=== PATIENT | female | born 1960 | race Caucasian/White ===

== ENCOUNTER 2020-11-07 10:35 | Inpatient (IN) | payer OTHER ==
[2020-11-07] MEDS ORDERED: SODIUM CHLORIDE 0.9% 1,000 ML IV STA ×2 (10:58)
[2020-11-07] MEDS ORDERED: ONDANSETRON 4 MG/2 ML VIAL IVP STA (10:59)
[2020-11-07] MEDS ORDERED: IPRATROPIUM-ALBUTEROL 3 ML NEB INHALATION STA (11:00)
[2020-11-07] MEDS ORDERED: methylPREDNISolone SOD SUCCI 125 MG/2 ML VIAL IV STA (11:01)
--- NOTE | 2020-11-07 11:02 | ED ---
SOB HPI - General Chief Complaint: Shortness of Breath Stated Complaint: SAI Time Seen by Provider: 11/07/20 10:40 Source: patient, family, RN notes reviewed Mode of arrival: ambulatory Limitations: no limitations - History of Present Illness Initial Comments: This is a 6-year-old female history of COPD who states she's had shortness of breath or past 2 weeks is getting worse and refractory to her home medications he also is had nausea vomiting. She's had decreased oral intake she is has some fevers chills sweats also she states. Some chest discomfort due to breathing. No diarrhea. She states she did had the COVID-19 shots with the last one being in the end of July. No other current complaints or modifying factors she is currently somewhat nauseated MD Complaint: shortness of breath, cough - Related Data Home Medications Medication Instructions Recorded Confirmed Multivitamins, Thera [Multivitamin 1 tab PO DAILY 11/07/20 11/07/20 (formulary)] Simvastatin [Zocor] 20 mg PO DAILY 11/07/20 11/07/20 Venlafaxine HCl ER [Effexor Xr] 37.5 mg PO HS 11/07/20 11/07/20 clonazePAM [KlonoPIN] 1 mg PO TID PRN 11/07/20 11/07/20 Allergies Allergy/AdvReac Type Severity Reaction Status Date / Time NSAIDS (Non-Steroidal AdvReac Unknown Verified 11/07/20 11:50 Anti-Inflamma Review of Systems ROS Statement: Those systems with pertinent positive or pertinent negative responses have been documented in the HPI. ROS Other: All systems not noted in ROS Statement are negative. Past Medical History Past Medical History: GERD/Reflux, Osteoarthritis (OA) Additional Past Medical History / Comment(s): hiatal hernia, migraines, ulcers,DJD, PT STATED SHE HAS LOST 35 POUNDS WITHOUT TRYING IN THE PAST 6 MONTHS History of Any Multi-Drug Resistant Organisms: None Reported Past Surgical History: Back Surgery, Section, Hysterectomy, Tubal Ligation Additional Past Surgical History / Comment(s): spinal fusion, 07-05-15 TOTAL RT HIP ARTHROPLASTY Past Anesthesia/Blood Transfusion Reactions: Motion Sickness Additional Past Anesthesia/Blood Transfusion Reaction / Comment(s): CLUA STERPHOBIA Past Psychological History: Anxiety Smoking Status: Current every day smoker Past Alcohol Use History: None Reported Past Drug Use History: None Reported - Past Family History Brother(s) Family Medical History: Cancer Mother Family Medical History: CVA/TIA, Deep Vein Thrombosis (DVT), Hypertension, Th yroid Disorder Father Family Medical History: Coronary Artery Disease (CAD), Dementia, Myocardial Infarction ([place]) Additional Family Medical History / Comment(s): CARDIAC STENTS General Exam - General Exam Comments Initial Comments: This is a well-developed asthenic appearing female who is awake alert oriented 3 Limitations: no limitations General appearance: alert, anxious Head exam: Present: atraumatic, normocephalic, normal inspection Eye exam: Present: normal appearance, PERRL, EOMI. Absent: scleral icterus, conjunctival injection, periorbital swelling ENT exam: Present: mucous membranes dry Neck exam: Present: normal inspection, full ROM, other. Absent: tenderness, meningismus, lymphadenopathy Respiratory exam: Present: decreased breath sounds. Absent: respiratory distress, wheezes, rales, rhonchi, stridor Cardiovascular Exam: Present: normal rhythm, tachycardia, normal heart sounds. Absent: systolic murmur, diastolic murmur, rubs, gallop, clicks GI/Abdominal exam: Present: soft, normal bowel sounds. Absent: distended, tenderness, guarding, rebound, rigid Extremities exam: Present: normal inspection, full ROM, normal capillary refill. Absent: tenderness, pedal edema, joint swelling, calf tenderness Back exam: Present: normal inspection Neurological exam: Present: alert, oriented X3, CN II-XII intact Psychiatric exam: Present: normal affect, normal mood Skin exam: Present: warm, dry, intact, normal color. Absent: rash Course Vital Signs 11/07/20 11/07/20 11/07/20 10:37 11:24 11:37 Temperature 98.5 F Pulse Rate 135 H 105 H 110 H Respiratory 16 Rate Blood Pressure 136/89 O2 Sat by Pulse 90 L Oximetry 11/07/20 12:00 Temperature Pulse Rate 104 H Respiratory 18 Rate Blood Pressure 148/78 O2 Sat by Pulse 96 Oximetry Medical Decision Making - Medical Decision Making I did discuss the findings with the patient and her . Patient will be admitted with ulnar consultation. Case is discussed with Dr. Gee covering for Dr. Souza - Lab Data Result diagrams: 11/07/20 11:15 11/07/20 11:15 Lab Results 11/07/20 11/07/20 11/07/20 Range/Units 11:15 11:15 11:15 WBC 19.9 H (3.8-10.6) k/uL RBC 5.09 (3.80-5.40) m/uL Hgb 15.3 (11.4-16.0) gm/dL Hct 46.1 H (34.0-46.0) % MCV 90.6 (80.0-100.0) fL MCH 30.1 (25.0-35.0) pg MCHC 33.2 (31.0-37.0) g/dL RDW 13.0 (11.5-15.5) % Plt Count 431 (150-450) k/uL MPV 7.2 Neutrophils % 91 % Lymphocytes % 5 % Monocytes % 3 % Eosinophils % 0 % Basophils % 0 % Neutrophils # 18.1 H (1.3-7.7) k/uL Lymphocytes # 1.0 (1.0-4.8) k/uL Monocytes # 0.6 (0-1.0) k/uL Eosinophils # 0.1 (0-0.7) k/uL Basophils # 0.0 (0-0.2) k/uL PT 11.6 (9.0-12.0) sec INR 1.1 (<1.2) APTT 23.2 (22.0-30.0) sec D-Dimer 1.69 H (<0.60) mg/L FEU Sodium 133 L (137-145) mmol/L Potassium 3.7 (3.5-5.1) mmol/L Chloride 94 L (98-107) mmol/L Carbon Dioxide 29 (22-30) mmol/L Anion Gap 10 mmol/L BUN 8 (7-17) mg/dL Creatinine 0.35 L (0.52-1.04) mg/dL Est GFR (CKD-EPI)AfAm >90 (>60 ml/min/1.73 sqM) Est GFR (CKD-EPI)NonAf >90 (>60 ml/min/1.73 sqM) Glucose 132 H (74-99) mg/dL Plasma Lactic Acid Leo (0.7-2.0) mmol/L Calcium 9.5 (8.4-10.2) mg/dL Magnesium 2.0 (1.6-2.3) mg/dL Total Bilirubin 0.7 (0.2-1.3) mg/dL AST 43 H (14-36) U/L ALT 58 H (4-34) U/L Alkaline Phosphatase 123 (38-126) U/L Creatine Kinase 54 (30-135) U/L Troponin I (0.000-0.034) ng/mL NT-Pro-B Natriuret Pep pg/mL Total Protein 6.6 (6.3-8.2) g/dL Albumin 3.4 L (3.5-5.0) g/dL Lipase 33 (23-300) U/L Coronavirus (PCR) (Not Detectd) 11/07/20 11/07/20 11/07/20 Range/Units 11:15 11:15 11:15 WBC (3.8-10.6) k/uL RBC (3.80-5.40) m/uL Hgb (11.4-16.0) gm/dL Hct (34.0-46.0) % MCV (80.0-100.0) fL MCH (25.0-35.0) pg MCHC (31.0-37.0) g/dL RDW (11.5-15.5) % Plt Count (150-450) k/uL MPV Neutrophils % % Lymphocytes % % Monocytes % % Eosinophils % % Basophils % % Neutrophils # (1.3-7.7) k/uL Lymphocytes # (1.0-4.8) k/uL Monocytes # (0-1.0) k/uL Eosinophils # (0-0.7) k/uL Basophils # (0-0.2) k/uL PT (9.0-12.0) sec INR (<1.2) APTT (22.0-30.0) sec D-Dimer (<0.60) mg/L FEU Sodium (137-145) mmol/L Potassium (3.5-5.1) mmol/L Chloride (98-107) mmol/L Carbon Dioxide (22-30) mmol/L Anion Gap mmol/L BUN (7-17) mg/dL Creatinine (0.52-1.04) mg/dL Est GFR (CKD-EPI)AfAm (>60 ml/min/1.73 sqM) Est GFR (CKD-EPI)NonAf (>60 ml/min/1.73 sqM) Glucose (74-99) mg/dL Plasma Lactic Acid Leo 1.5 (0.7-2.0) mmol/L Calcium (8.4-10.2) mg/dL Magnesium (1.6-2.3) mg/dL Total Bilirubin (0.2-1.3) mg/dL AST (14-36) U/L ALT (4-34) U/L Alkaline Phosphatase (38-126) U/L Creatine Kinase (30-135) U/L Troponin I <0.012 (0.000-0.034) ng/mL NT-Pro-B Natriuret Pep 76 pg/mL Total Protein (6.3-8.2) g/dL Albumin (3.5-5.0) g/dL Lipase (23-300) U/L Coronavirus (PCR) (Not Detectd) 11/07/20 Range/Units 13:19 WBC (3.8-10.6) k/uL RBC (3.80-5.40) m/uL Hgb (11.4-16.0) gm/dL Hct (34.0-46.0) % MCV (80.0-100.0) fL MCH (25.0-35.0) pg MCHC (31.0-37.0) g/dL RDW (11.5-15.5) % Plt Count (150-450) k/uL MPV Neutrophils % % Lymphocytes % % Monocytes % % Eosinophils % % Basophils % % Neutrophils # (1.3-7.7) k/uL Lymphocytes # (1.0-4.8) k/uL Monocytes # (0-1.0) k/uL Eosinophils # (0-0.7) k/uL Basophils # (0-0.2) k/uL PT (9.0-12.0) sec INR (<1.2) APTT (22.0-30.0) sec D-Dimer (<0.60) mg/L FEU Sodium (137-145) mmol/L Potassium (3.5-5.1) mmol/L Chloride (98-107) mmol/L Carbon Dioxide (22-30) mmol/L Anion Gap mmol/L BUN (7-17) mg/dL Creatinine (0.52-1.04) mg/dL Est GFR (CKD-EPI)AfAm (>60 ml/min/1.73 sqM) Est GFR (CKD-EPI)NonAf (>60 ml/min/1.73 sqM) Glucose (74-99) mg/dL Plasma Lactic Acid Leo (0.7-2.0) mmol/L Calcium (8.4-10.2) mg/dL Magnesium (1.6-2.3) mg/dL Total Bilirubin (0.2-1.3) mg/dL AST (14-36) U/L ALT (4-34) U/L Alkaline Phosphatase (38-126) U/L Creatine Kinase (30-135) U/L Troponin I (0.000-0.034) ng/mL NT-Pro-B Natriuret Pep pg/mL Total Protein (6.3-8.2) g/dL Albumin (3.5-5.0) g/dL Lipase (23-300) U/L Coronavirus (PCR) Not Detected (Not Detectd) - EKG Data -: EKG Interpreted by Me EKG shows normal: sinus rhythm EKG Comments: Sinus tachycardia rate 107. Interval 116 QRS duration 88 QT/QTC 324/432 possible left atrial enlargement evidence a left axis deviation. - Radiology Data Radiology results: report reviewed (Imaging reviewed as well as CAT scan evidence of left upper and lower lobe infiltrate evidence of hilar adenopathy mastectomy ruled out no definitive evidence of PE), image reviewed Critical Care Time Critical Care Time: Yes Total Critical Care Time: 32 Critical Care Time: Critical care time includes initial presentation with history physical labs x- rays multiple reevaluation patient response to therapy discussion with patient family and several occasions regarding the findings discussed with the admitting physician admission orders and documentation of the above Disposition Clinical Impression: Aspiration pneumonia, Acute exacerbation of chronic obstructive pulmonary disease, Acute respiratory distress syndrome in adult Disposition: ADMITTED IP TO THIS HOSP Condition: Fair Referrals: Tr Power MD [Primary Care Provider] - 1-2 days
[2020-11-07 11:27] LABS: Basophils % (A) 0 %; Eosinophils # (A) 0.1 k/uL (0-0.7); Eosinophils % (A) 0 %; HCT 46.1 % (34.0-46.0); HGB 15.3 gm/dL (11.4-16.0); Lymphocytes % (A) 5 %; MCH 30.1 pg (25.0-35.0); MCHC 33.2 g/dL (31.0-37.0); MCV 90.6 fL (80.0-100.0); Mean Platelet Volume 7.2; Monocytes # (A) 0.6 k/uL (0-1.0); Monocytes % (A) 3 %; Neutrophils # (A) 18.1 k/uL (1.3-7.7); Neutrophils % (A) 91 %; Platelet Count 431 k/uL (150-450); RBC 5.09 m/uL (3.80-5.40); WBC 19.9 k/uL (3.8-10.6)
[2020-11-07 11:37] LABS: ALT 58 U/L (4-34); AST 43 U/L (14-36); African American GFR (CKD) >90 (>60 ml/min/1.73 sqM); Albumin 3.4 g/dL (3.5-5.0); Alkaline Phosphatase 123 U/L (38-126); Anion Gap 10 mmol/L; Blood Urea Nitrogen 8 mg/dL (7-17); Calcium 9.5 mg/dL (8.4-10.2); Carbon Dioxide 29 mmol/L (22-30); Chloride 94 mmol/L (98-107); Creatine Kinase 54 U/L (30-135); Glucose 132 mg/dL (74-99); Lipase 33 U/L (23-300); Non-African American GFR(CKD) >90 (>60 ml/min/1.73 sqM); Potassium 3.7 mmol/L (3.5-5.1); Sodium 133 mmol/L (137-145); Total Bilirubin 0.7 mg/dL (0.2-1.3); Total Protein 6.6 g/dL (6.3-8.2)
[2020-11-07 11:44] LABS: INR 1.1 (<1.2); Partial Thromboplastin Time 23.2 sec (22.0-30.0); Prothrombin Time 11.6 sec (9.0-12.0)
[2020-11-07] MEDS ORDERED: cefTRIAXone IN SWFI 1,000 MG/10 ML SYRINGE IVP STA (12:16)
--- NOTE | 2020-11-07 12:42 | XR ---
EXAMINATION TYPE: XR chest 2V DATE OF EXAM: 11/07/2020 COMPARISON: NONE HISTORY: 60 years Female. STUDY INDICATION GIVEN: Difficulty breathing TECHNIQUE: Frontal lateral chest radiographs FINDINGS AND IMPRESSION: Airspace disease demonstrated in the left lower lobe likely on the basis of pneumonia. Bibasilar atel ectasis and mild pulmonary edema also seen. No pneumothorax or pleural effusion. Cardiomediastinal silhouette there is normal in size. No acute osseous abnormality.
--- NOTE | 2020-11-07 13:51 | CT ---
EXAMINATION TYPE: CT angio chest DATE OF EXAM: 11/07/2020 1:09 PM COMPARISON: None HISTORY: Difficulty breathing CT DLP: 236 mGycm Automated exposure control for dose reduction was used. CONTRAST: CTA scan of the thorax is performed without and with IV Contrast, patient injected with 100 ml mL of Isovue 370, pulmonary embolism protocol. . FINDINGS: There is suboptimal opacification of the pulmonary trunk due to bolus timing therefore study is subop timal and it is difficult to exclude segmental or subsegmental pulmonary arterial embolism. No occlusive filling defects are seen in the main, right or left pulmonary arteries. The proximal asp ect of the lobar pulmonary arteries are grossly normal in opacification. Intrathoracic aorta is normal in course and caliber. Extensive multifocal pneumonia is seen in the left upper and lower lobes. There is left hilar and med iastinal adenopathy.There is a soft tissue density subcarinal space measuring 3.6 x 2.5 x 2 cm. There are filling defects in the left mainstem bronchus which contain few foci of air suggesting aspi ration rather than endobronchial tumor. The heart is normal in size and there is no pericardial effusion. 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 Upper abdomen is unremarkable. No acute or concerning osseous abnormality. Mild degenerative changes are seen in the spine. IMPRESSION: 1. FILLING DEFECT IN THE LEFT MAINSTEM BRONCHUS LIKELY ASPIRATED MATERIAL WITH LEFT UPPER AND LEFT LO WER LOBE LIKELY ASPIRATIONAL PNEUMONIA. LEFT HILAR MALIGNANCY/MASS CANNOT BE EXCLUDED. 2. MEDIASTINAL AND LEFT HILAR ADENOPATHY WITH A SOFT TISSUE MASS IN THE PRECARINAL SPACE MEASURING UP TO 3.6 AND, FINDINGS COULD BE REACTIVE SECONDARY TO LUNG INFECTION HOWEVER THIS IS HIGHLY CONCERNING FOR MALIGNANCY. 3. SUBOPTIMAL EVALUATION OF THE PULMONARY ARTERIES, NO OCCLUSIVE FILLING DEFECTS IN THE MAIN, RIGHT O R LEFT PULMONARY ARTERIES, EXCLUSION OF SEGMENTAL OR SUBSEGMENTAL PULMONARY ARTERIAL EMBOLISM IS DIFF ICULT.
[2020-11-07] MEDS ORDERED: ACETAMINOPHEN TAB 500 MG TAB PO STA (14:00)
[2020-11-07] MEDS ORDERED: PIPERACILLIN-TAZOBACTAM 3.375 GM in SODIUM CHLORIDE 0.9% 100 ML IVPB STA (14:07)
[2020-11-07] MEDS ORDERED: PNEUMONIA PROTOCOL UTILIZED 1 EACH MISC PO PRN (14:07)
[2020-11-07] MEDS ORDERED: LEVOFLOXACIN 750MG-D5W PMX 750 MG in DEXTROSE/WATER 1 150ML.BAG IVPB STA (14:07)
[2020-11-07] MEDS: SODIUM CHLORIDE 0.9% 1,000 ML IV SCH (14:44)
[2020-11-07] MEDS: IPRATROPIUM-ALBUTEROL 3 ML NEB INHALATION PRN ×2 (14:51→20:06)
[2020-11-07] MEDS: clonazePAM 1 MG TAB PO PRN ×2 (16:00→23:33)
[2020-11-07 16:51] LABS: Glucose,Whole Blood 360 mg/dL (75-99)
[2020-11-07 17:02] LABS: Glucose,Whole Blood 359 mg/dL (75-99)
[2020-11-07] MEDS: methylPREDNISolone SOD SUCCI 125 MG/2 ML VIAL IV SCH ×2 (17:32→23:34)
[2020-11-07] MEDS: INSULIN ASPART (NovoLOG) 100 UNIT/ML VIAL SQ SCH ×2 (17:33→23:34)
[2020-11-07 20:35] LABS: Glucose,Whole Blood 290 mg/dL (75-99)
--- NOTE | 2020-11-07 23:19 | P.HPIM ---
History of Present Illness H&P Date: 11/07/20 Chief Complaint: Shortness of breath 60-year-old female history of COPD who states she's had shortness of breath or past 2 weeks is getting worse and refractory to her home medications he also is had nausea vomiting. She's had decreased oral intake she is has some fevers ch ills sweats also she states. Some chest discomfort due to breathing. No diarrhea. She states she did had the COVID-19 shots with the last one being in the end of July. No other current complaints or modifying factors she is currently somewhat nauseated Workup completed in ED; Sinus tachycardia rate 107. Interval 116 QRS duration 88 QT/QTC 324/432 possible left atrial enlargement evidence a left axis deviation CAT scan of the chest reveals evidence of left upper and lower lobe infiltrate evidence of hilar adenopathy mastectomy ruled out no definitive evidence of PE Laboratory review shows an elevated white blood count of 19.9, hemoglobin of 15.3 and platelet count of 431, sodium 133, potassium 3.7, BUN/creatinine of 8/0.35, AST/ALT elevated at 43/58 Patient is admitted to the hospital for acute exacerbation COPD and aspiration pneumonia with further evaluation of hilar lymphadenopathy Review of Systems REVIEW OF SYSTEMS: CONSTITUTIONAL: No fever, no malaise, no fatigue. HEENT: No recent visual problems or hearing problems. Denied any sore throat. CARDIOVASCULAR: No chest pain, orthopnea, PND, no palpitations, no syncope. PULMONARY: No shortness of breath, no cough, no hemoptysis. GASTROINTESTINAL: No diarrhea, no nausea, no vomiting, no abdominal pain. NEUROLOGICAL: No headaches, no weakness, no numbness. HEMATOLOGICAL: Denies any bleeding or petechiae. GENITOURINARY: Denies any burning micturition, frequency, or urgency. MUSCULOSKELETAL/RHEUMATOLOGICAL: Denies any joint pain, swelling, or any muscle pain. ENDOCRINE: Denies any polyuria or polydipsia. The rest of the 14-point review of systems is negative. Past Medical History Past Medical History: GERD/Reflux, Osteoarthritis (OA) Additional Past Medical History / Comment(s): hiatal hernia, migraines, ulcers,DJD, PT STATED SHE HAS LOST 35 POUNDS WITHOUT TRYING IN THE PAST 6 MONTHS History of Any Multi-Drug Resistant Organisms: None Reported Past Surgical History: Back Surgery, Section, Hysterectomy, Tubal Ligation Additional Past Surgical History / Comment(s): spinal fusion, 07-05-15 TOTAL RT HIP ARTHROPLASTY Past Anesthesia/Blood Transfusion Reactions: Motion Sickness Additional Past Anesthesia/Blood Transfusion Reaction / Comment(s): CLUASTERPHOBIA Past Psychological History: Anxiety Smoking Status: Current every day smoker Past Alcohol Use History: None Reported Past Drug Use History: None Reported - Past Family History Brother(s) Family Medical History: Cancer Mother Family Medical History: CVA/TIA, Deep Vein Thrombosis (DVT), Hypertension, Thyroid Disorder Father Family Medical History: Coronary Artery Disease (CAD), Dementia, Myocardial Infarction ([place]) Additional Family Medical History / Comment(s): CARDIAC STENTS Medications and Allergies Home Medications Medication Instructions Recorded Confirmed Type Multivitamins, Thera [Multivitamin 1 tab PO DAILY 11/07/20 11/07/20 History (formulary)] Simvastatin [Zocor] 20 mg PO DAILY 11/07/20 11/07/20 History Venlafaxine HCl ER [Effexor Xr] 37.5 mg PO HS 11/07/20 11/07/20 History clonazePAM [KlonoPIN] 1 mg PO TID PRN 11/07/20 11/07/20 History Allergies Allergy/AdvReac Type Severity Reaction Status Date / Time NSAIDS (Non-Steroidal AdvReac Unknown Verified 11/07/20 11:50 Anti-Inflamma Physical Exam Vitals: Vital Signs Temp Pulse Resp BP Pulse Ox 11/07/20 15:04 100 11/07/20 14:51 96 11/07/20 14:06 100.0 F H 104 H 18 125/77 92 L 11/07/20 12:00 104 H 18 148/78 96 11/07/20 11:37 110 H 11/07/20 11:24 105 H 11/07/20 10:37 98.5 F 135 H 16 136/89 90 L Intake and Output 11/07/20 11/07/20 11/07/20 06:59 14:59 22:59 Other: Weight 58.967 kg PHYSICAL EXAMINATION: GENERAL: The patient is alert and oriented x3, not in any acute distress. Well developed, well nourished. HEENT: Pupils are round and equally reacting to light. EOMI. No scleral icterus. No conjunctival pallor. Normocephalic, atraumatic. No pharyngeal erythema. No thyromegaly. CARDIOVASCULAR: S1 and S2 present. No murmurs, rubs, or gallops. PULMONARY: Chest is clear to auscultation, no wheezing or crackles. ABDOMEN: Soft, nontender, nondistended, normoactive bowel sounds. No palpable organomegaly. MUSCULOSKELETAL: No joint swelling or deformity. EXTREMITIES: No cyanosis, clubbing, or pedal edema. NEUROLOGICAL: Gross neurological examination did not reveal any focal deficits. SKIN: No rashes. Results CBC & Chem 7: 11/07/20 11:15 11/07/20 11:15 Labs: Abnormal Lab Results - Last 24 Hours (Table) 11/07/20 11/07/20 11/07/20 Range/Units 11:15 11:15 11:15 WBC 19.9 H (3.8-10.6) k/uL Hct 46.1 H (34.0-46.0) % Neutrophils # 18.1 H (1.3-7.7) k/uL D-Dimer 1.69 H (<0.60) mg/L FEU Sodium 133 L (137-145) mmol/L Chloride 94 L (98-107) mmol/L Creatinine 0.35 L (0.52-1.04) mg/dL Glucose 132 H (74-99) mg/dL AST 43 H (14-36) U/L ALT 58 H (4-34) U/L Albumin 3.4 L (3.5-5.0) g/dL Assessment and Plan Assessment: 1. Acute respiratory distress syndrome; multifactorial due to COPD exacerbation/aspiration pneumonia 2. Aspiration pneumonia; patient has been placed on IV Zosyn in ED at 3.375 g IV every 8 hours; we will monitor CBC, CRP and pro-calcitonin; sputum culture and blood cultures ordered in ED 3. Acute exacerbation COPD; we will start patient on bronchodilator and steroid nebulizer treatments; IV Solu-Medrol; O2 per nasal cannula keeping SpO2 greater than 88% 4. Transaminitis; possibly medication induced; Zocor will be placed on hold; we will repeat liver enzymes tomorrow; further recommendations to follow pending results 5. Hyperlipidemia; patient takes Zocor 20 mg by mouth daily; we will hold off on statin therapy given elevated liver enzymes; repeat liver enzymes tomorrow with plans to restart therapy if stable 6. Depression/anxiety; we will continue with home dose of Effexor 37.5 mg daily at bedtime along with Klonopin 1 mg by mouth 3 times a day when necessary DVT prophylaxis; SCDs/subcu Lovenox CODE STATUS; full code
[2020-11-07] MEDS: VENLAFAXINE HCL ER 37.5 MG CAP PO SCH (23:33)
[2020-11-07] MEDS: PIPERACILLIN-TAZOBACTAM 3.375 GM in SODIUM CHLORIDE 0.9% 100 ML IVPB SCH (23:36)
[2020-11-08 06:52] LABS: Glucose,Whole Blood 174 mg/dL (75-99)
[2020-11-08] MEDS: methylPREDNISolone SOD SUCCI 125 MG/2 ML VIAL IV SCH ×3 (07:12→16:57)
[2020-11-08] MEDS: SODIUM CHLORIDE 0.9% 1,000 ML IV SCH ×2 (07:17→11:25)
--- NOTE | 2020-11-08 07:52 | XR ---
EXAMINATION TYPE: XR chest 2V DATE OF EXAM: 11/08/2020 COMPARISON: 11/07/2020 TECHNIQUE: PA and lateral views submitted. HISTORY: Shortness of breath FINDINGS: Diffuse interstitial pattern with left lower lobe infiltrate and small effusion. Pneumothorax. Heart size normal. Hypertrophic and degenerative changes spine. IMPRESSION: 1. Left lower lobe infiltrate and small effusion stable.
[2020-11-08] MEDS: ATORVASTATIN 10 MG TAB PO SCH (08:00)
[2020-11-08] MEDS: MULTIVITAMINS, THERA 1 EACH TAB PO SCH (08:00)
[2020-11-08] MEDS: clonazePAM 1 MG TAB PO PRN ×2 (08:00→17:01)
[2020-11-08] MEDS: INSULIN ASPART (NovoLOG) 100 UNIT/ML VIAL SQ SCH ×4 (08:01→21:32)
[2020-11-08] MEDS: PIPERACILLIN-TAZOBACTAM 3.375 GM in SODIUM CHLORIDE 0.9% 100 ML IVPB SCH ×2 (08:01→15:26)
[2020-11-08] MEDS ORDERED: ENOXAPARIN 30 MG/0.3 ML SYRINGE SQ SCH (09:00)
[2020-11-08 11:24] LABS: Glucose,Whole Blood 146 mg/dL (75-99)
[2020-11-08 11:37] LABS: Basophils # (A) 0.02 X 10*3/uL (0.00-0.10); Basophils % (A) 0.1 %; Eosinophils # (A) 0 X 10*3/uL (0.04-0.35); Eosinophils % (A) 0 %; HCT 39.1 % (37.2-46.3); HGB 12.3 g/dL (12.0-15.0); Lymphocytes # (A) 0.79 X 10*3/uL (0.90-5.00); MCH 29.1 pg (27.0-32.0); MCHC 31.5 g/dL (32.0-37.0); MCV 92.7 fL (80.0-97.0); Mean Platelet Volume 9.5 fL (9.5-12.2); Monocytes # (A) 0.41 X 10*3/uL (0.20-1.00); Monocytes % (A) 2.1 %; Neutrophils # (A) 18.57 X 10*3/uL (1.80-7.70); Neutrophils % (A) 92.9 %; Platelet Count 396 X 10*3/uL (140-440); RBC 4.22 X 10*6/uL (4.10-5.20); RDW 13.1 % (11.5-14.5); WBC 19.96 X 10*3/uL (4.50-10.00)
[2020-11-08 11:58] LABS: African American GFR (CKD) 131.2 (60.0-200.0); Anion Gap 7.3 mmol/L (4.00-12.00); BUN/Creat Ratio 27.5 Ratio (12.00-20.00); Calcium 8.7 mg/dL (8.7-10.3); Carbon Dioxide 30.7 mmol/L (21.6-31.8); Non-African American GFR(CKD) 113.2 (60.0-200.0); Potassium 4.1 mmol/L (3.5-5.5)
[2020-11-08 11:59] LABS: C Reactive Protein 18.8 mg/dL (0.0-0.8)
--- NOTE | 2020-11-08 13:49 | P.CNPUL ---
History of Present Illness Consult date: 11/08/20 Reason for consult: dyspnea, pneumonia History of present illness: 60-year-old female patient, coming in for worsening shortness of breath. The patient is known to have COPD. She is a chronic smoker. She is not oxygen dependent. She doesn't use anything for maintenance in regards to her COPD. She had increased dyspnea cough chest tightness and wheezing she came into the hospital and the patient was found to have a pneumonia and COPD exacerbation. Chest x-ray showed a left lower lobe infiltrate. Computed tomography scan of the chest was also done and showed left upper and left lower lobe pulmonary infiltration. There was also evidence of filling defect in the left mainstem bronchus, likely secondary to mucus and secretions. There is also evidence of a left hilar lymph nodes as the patient was found to have left hilar and medi astinal lymphadenopathy and a soft tissue mass in the precarinal space measuring up to 3.6 cm in size and malignancy was obviously a concern. The pulmonary artery branches were suboptimally visualized and no filling defect was seen in the visualized arteries. The patient underwent a white cell count of 19.9 and the pro calcitonin level was at 0.1. A electrodes are within normal limits and the patient is currently on a combination of Zosyn and Levaquin. COVID-19 testing was negative and EKG showed a normal sinus tachycardia without evidence of any acute ischemic changes. Review of Systems Constitutional: Reports fatigue, Reports weakness Eyes: denies as per HPI, denies blurred vision, denies bulging eye, denies decreased vision, denies diplopia, denies discharge, denies dry eye, denies irritation, denies itching, denies pain, denies photophobia, denies loss of peripheral vision, denies loss of vision, denies tunnel vision/blind spots Ears: deny: decreased hearing, ear discharge, earache, tinnitus Ears, nose, mouth and throat: Reports as per HPI Breasts: absent: as per HPI, change in shape, gynecomastia, masses, nipple discharge, pain, skin changes, swelling Cardiovascular: Reports decreased exercise tolerance, Reports dyspnea on exertion Respiratory: Reports cough, Reports dyspnea, Reports wheezing Gastrointestinal: Reports as per HPI Genitourinary: Reports as per HPI Menstruation: Reports as per HPI Musculoskeletal: Reports as per HPI Musculoskeletal: absent: ankle pain, ankle stiffness, ankle swelling, as per HPI, elbow pain, elbow stiffness, elbow swelling, foot pain, foot stiffness, foot swelling, hand pain, hand stiffness, hand swelling, hip pain, hip stiffness, hip swelling, knee pain, knee stiffness, knee swelling, shoulder pain, shoulder stiffness, shoulder swelling, wrist pain, wrist stiffness, wrist swelling Integumentary: Reports as per HPI Neurological: Reports as per HPI Psychiatric: Reports as per HPI Endocrine: Reports as per HPI Hematologic/Lymphatic: Reports as per HPI Allergic/Immunologic: Reports as per HPI Past Medical History Past Medical History: GERD/Reflux, Osteoarthritis (OA) Additional Past Medical History / Comment(s): hiatal hernia, migraines, ulcers,DJD, PT STATED SHE HAS LOST 35 POUNDS WITHOUT TRYING IN THE PAST 6 MONTHS History of Any Multi-Drug Resistant Organisms: None Reported Past Surgical History: Back Surgery, Section, Hysterectomy, Tubal Ligation Additional Past Surgical History / Comment(s): spinal fusion, 07-05-15 TOTAL RT HIP ARTHROPLASTY Past Anesthesia/Blood Transfusion Reactions: Motion Sickness Additional Past Anesthesia/Blood Transfusion Reaction / Comment(s): CLUASTERPHOBIA Past Psychological History: Anxiety Smoking Status: Current every day smoker Past Alcohol Use History: None Reported Past Drug Use History: None Reported - Past Family History Brother(s) Family Medical History: Cancer Mother Family Medical History: CVA/TIA, Deep Vein Thrombosis (DVT), Hypertension, Thyroid Disorder Father Family Medical History: Coronary Artery Disease (CAD), Dementia, Myocardial Infarction (DC) Additional Family Medical History / Comment(s): CARDIAC STENTS Medications and Allergies Home Medications Medication Instructions Recorded Confirmed Type Multivitamins, Thera [Multivitamin 1 tab PO DAILY 11/07/20 11/07/20 History (formulary)] Simvastatin [Zocor] 20 mg PO DAILY 11/07/20 11/07/20 History Venlafaxine HCl ER [Effexor Xr] 37.5 mg PO HS 11/07/20 11/07/20 History clonazePAM [KlonoPIN] 1 mg PO TID PRN 11/07/20 11/07/20 History Allergies Allergy/AdvReac Type Severity Reaction Status Date / Time NSAIDS (Non-Steroidal AdvReac Unknown Verified 11/07/20 11:50 Anti-Inflamma Physical Exam Vitals: Vital Signs Temp Pulse Pulse Resp BP BP Pulse Ox 11/08/20 08:05 97.9 F 100 21 133/76 91 L 11/08/20 02:00 97.7 F 74 17 108/62 90 L 11/07/20 20:16 76 11/07/20 20:06 75 11/07/20 20:00 97.8 F 74 17 109/73 93 L 11/07/20 16:00 98.4 F 94 18 120/72 94 L 11/07/20 15:04 100 11/07/20 14:51 96 11/07/20 14:06 100.0 F H 104 H 18 125/77 92 L Intake and Output 11/07/20 11/08/20 11/08/20 22:59 06:59 14:59 Intake Total 100 250 Balance 100 250 Intake: Intake, IV Titration 100 Amount Piperacillin-Tazobactam 3 100 .375 gm In Sodium Chloride 0.9% 100 ml @ 25 mls/hr IVPB Q8HR [facility] Rx# :[id number] Oral 250 Other: # Voids 3 GENERAL: The patient is alert and oriented x3, not in any acute distress. Well developed, well nourished. HEENT: Pupils are round and equally reacting to light. EOMI. No scleral icterus. No conjunctival pallor. Normocephalic, atraumatic. No pharyngeal erythema. No thyromegaly. CARDIOVASCULAR: S1 and S2 present. No murmurs, rubs, or gallops. PULMONARY: Chest is clear to auscultation, no wheezing or crackles. ABDOMEN: Soft, nontender, nondistended, normoactive bowel sounds. No palpable organomegaly. MUSCULOSKELETAL: No joint swelling or deformity. EXTREMITIES: No cyanosis, clubbing, or pedal edema. NEUROLOGICAL: Gross neurological examination did not reveal any focal deficits. SKIN: No rashes. Results - Laboratory Findings CBC and BMP: 11/08/20 05:31 11/08/20 05:31 PT/INR, D-dimer PT 11.6 sec (9.0-12.0) 11/07/20 11:15 INR 1.1 (<1.2) 11/07/20 11:15 D-Dimer 1.69 mg/L FEU (<0.60) H 11/07/20 11:15 Abnormal lab findings: Abnormal Labs 0711/07/20 11/07/20 11:15 11:15 11:15 WBC 19.9 H Hct 46.1 H MCHC Immature Gran # Neutrophils # 18.1 H Lymphocytes # Eosinophils # D-Dimer 1.69 H Sodium 133 L Chloride 94 L Creatinine 0.35 L BUN/Creatinine Ratio Glucose 132 H POC Glucose (mg/dL) AST 43 H ALT 58 H C-Reactive Protein Albumin 3.4 L Procalcitonin 11/07/20 11/07/20 11/07/20 16:50 16:59 20:34 WBC Hct MCHC Immature Gran # Neutrophils # Lymphocytes # Eosinophils # D-Dimer Sodium Chloride Creatinine BUN/Creatinine Ratio Glucose POC Glucose (mg/dL) 360 H 359 H 290 H AST ALT C-Reactive Protein Albumin Procalcitonin 11/08/20 11/08/20 11/08/20 05:31 05:31 05:31 WBC 19.96 H Hct MCHC 31.5 L Immature Gran # 0.17 H Neutrophils # 18.57 H Lymphocytes # 0.79 L Eosinophils # 0 L D-Dimer Sodium Chloride Creatinine 0.4 L BUN/Creatinine Ratio 27.50 H Glucose 160 H POC Glucose (mg/dL) AST ALT C-Reactive Protein 18.8 H Albumin Procalcitonin 0.10 H 11/08/20 11/08/20 06:48 11:23 WBC Hct MCHC Immature Gran # Neutrophils # Lymphocytes # Eosinophils # D-Dimer Sodium Chloride Creatinine BUN/Creatinine Ratio Glucose POC Glucose (mg/dL) 174 H 146 H AST ALT C-Reactive Protein Albumin Procalcitonin - Diagnostic Findings Chest x-ray: image reviewed CT scan - chest: image reviewed Assessment and Plan Plan: 1 acute bilobar pneumonia involving the left upper and left lower lobe with significant consolidation of the left upper lobe lingular segment in addition to mediastinal lymphadenopathy which could be reactive versus malignant. The patient's left hilar, paratracheal and subcarinal soft tissue density/lymph nodes. 2 acute COPD exacerbation secondary to above 3 dyspnea secondary to above 4 weight-loss 5 history of migraines 6 history of hiatal hernia with acid reflux 7 mild leukocytosis plan Continue DuoNeb ar nebulized treatments [id number] I agree on the current antibiotic coverage and will keep Zosyn and Levaquin for now obtain sputum Gram stain and culture obtained follow-up chest x-ray with the next 24-48 hours will need to follow up this patient for complete clearing of this pulmonary infiltrates/consolidation. Would also need to follow-up the mediastinal lymph nodes to rule out any potential malignancy.
[2020-11-08] MEDS: IPRATROPIUM-ALBUTEROL 3 ML NEB INHALATION PRN (15:20)
[2020-11-08] MEDS: LEVOFLOXACIN 750 MG TAB PO SCH (15:25)
[2020-11-08 16:39] LABS: Glucose,Whole Blood 221 mg/dL (75-99)
[2020-11-08 20:37] LABS: Glucose,Whole Blood 371 mg/dL (75-99)
[2020-11-08] MEDS: VENLAFAXINE HCL ER 37.5 MG CAP PO SCH (21:32)
[2020-11-09] MEDS: methylPREDNISolone SOD SUCCI 125 MG/2 ML VIAL IV SCH ×4 (00:37→17:15)
[2020-11-09] MEDS: clonazePAM 1 MG TAB PO PRN ×3 (00:37→17:17)
[2020-11-09] MEDS: PIPERACILLIN-TAZOBACTAM 3.375 GM in SODIUM CHLORIDE 0.9% 100 ML IVPB SCH ×3 (00:38→17:16)
[2020-11-09 06:50] LABS: Glucose,Whole Blood 220 mg/dL (75-99)
[2020-11-09] MEDS: MULTIVITAMINS, THERA 1 EACH TAB PO SCH (07:29)
[2020-11-09] MEDS: ATORVASTATIN 10 MG TAB PO SCH (07:29)
[2020-11-09] MEDS: INSULIN ASPART (NovoLOG) 100 UNIT/ML VIAL SQ SCH ×4 (07:30→20:50)
[2020-11-09] MEDS: ENOXAPARIN 40 MG/0.4 ML SYRINGE SQ SCH (07:30)
[2020-11-09] MEDS: IPRATROPIUM-ALBUTEROL 3 ML NEB INHALATION PRN (09:16)
[2020-11-09 11:09] LABS: Glucose,Whole Blood 196 mg/dL (75-99)
--- NOTE | 2020-11-09 11:31 | P.PN ---
Subjective Progress Note Date: 11/09/20 60-year-old female patient, coming in for worsening shortness of breath. The patient is known to have COPD. She is a chronic smoker. She is not oxygen dependent. She doesn't use anything for maintenance in regards to her COPD. She had increased dyspnea cough chest tightness and wheezing she came into the hospital and the patient was found to have a pneumonia and COPD exacerbation. Chest x-ray showed a left lower lobe infiltrate. Computed tomography scan of the chest was also done and showed left upper and left lower lobe pulmonary infiltration. There was also evidence of filling defect in the left mainstem bronchus, likely secondary to mucus and secretions. There is also evidence of a left hilar lymph nodes as the patient was found to have left hilar and mediastinal lymphadenopathy and a soft tissue mass in the precarinal space measuring up to 3.6 cm in size and malignancy was obviously a concern. The pulmonary artery branches were suboptimally visualized and no filling defect was seen in the visualized arteries. The patient underwent a white cell count of 19.9 and the pro calcitonin level was at 0.1. A electrodes are within normal limits and the patient is currently on a combination of Zosyn and Levaquin. COVID-19 testing was negative and EKG showed a normal sinus tachycardia without evidence of any acute ischemic changes. 01/10/2021 and seeing the patient for a follow-up. The patient was hospitalized for an extensive left lung pneumonia. She is currently on a combination of Zosyn and Levaquin. Will pro calcitonin level was mildly elevated at 0.10. The patient had a white cell count of 19.9 which is stable compared to the day before. She is on examination Zosyn and Levaquin. Cultures are still pending for now. The blood cultures negative for now. No fever. COVID-19 testing was negative. She remains on 4 L of oxygen by nasal cannula with a pulse ox of 92%. She also has a component of COPD exacerbation. She is on bronchodilators and IV Solu-Medrol. Legionella urine antigen was sent and results are still pending for now. Clinically she is slightly improved. Objective - Vital Signs Vital signs: Vital Signs Temp 98.4 F 11/09/20 07:52 Pulse 90 11/09/20 09:26 Resp 20 11/09/20 07:52 BP 120/76 11/09/20 07:52 Pulse Ox 92 L 11/09/20 07:52 Intake & Output 11/08/20 11/09/20 11/09/20 18:59 06:59 18:59 Intake Total 250 Balance 250 Intake: Oral 250 Other: Voiding Method Toilet # Voids 3 0 - Exam GENERAL: The patient is alert and oriented x3, not in any acute distress. Well developed, well nourished. HEENT: Pupils are round and equally reacting to light. EOMI. No scleral icterus. No conjunctival pallor. Normocephalic, atraumatic. No pharyngeal erythema. No thyromegaly. CARDIOVASCULAR: S1 and S2 present. No murmurs, rubs, or gallops. PULMONARY: Chest is clear to auscultation, no wheezing or crackles. ABDOMEN: Soft, nontender, nondistended, normoactive bowel sounds. No palpable organomegaly. MUSCULOSKELETAL: No joint swelling or deformity. EXTREMITIES: No cyanosis, clubbing, or pedal edema. NEUROLOGICAL: Gross neurological examination did not reveal any focal deficits. SKIN: No rashes. - Labs CBC & Chem 7: 11/08/20 05:31 11/08/20 05:31 Labs: Abnormal Lab Results - Last 24 Hours (Table) 11/08/20 11/08/20 11/08/20 Range/Units 05:31 05:31 05:31 WBC 19.96 H (4.50-10.00) X 10*3/uL MCHC 31.5 L (32.0-37.0) g/dL Immature Gran # 0.17 H (0.00-0.04) X 10*3/uL Neutrophils # 18.57 H (1.80-7.70) X 10*3/uL Lymphocytes # 0.79 L (0.90-5.00) X 10*3/uL Eosinophils # 0 L (0.04-0.35) X 10*3/uL Creatinine 0.4 L (0.6-1.5) mg/dL BUN/Creatinine Ratio 27.50 H (12.00-20.00) Ratio Glucose 160 H (70-110) mg/dL POC Glucose (mg/dL) (75-99) mg/dL C-Reactive Protein 18.8 H (0.0-0.8) mg/dL Procalcitonin 0.10 H (0.02-0.09) ng/mL 11/08/20 11/08/20 11/09/20 Range/Units 16:39 20:33 06:48 WBC (4.50-10.00) X 10*3/uL MCHC (32.0-37.0) g/dL Immature Gran # (0.00-0.04) X 10*3/uL Neutrophils # (1.80-7.70) X 10*3/uL Lymphocytes # (0.90-5.00) X 10*3/uL Eosinophils # (0.04-0.35) X 10*3/uL Creatinine (0.6-1.5) mg/dL BUN/Creatinine Ratio (12.00-20.00) Ratio Glucose (70-110) mg/dL POC Glucose (mg/dL) 221 H 371 H 220 H (75-99) mg/dL C-Reactive Protein (0.0-0.8) mg/dL Procalcitonin (0.02-0.09) ng/mL 11/09/20 Range/Units 11:07 WBC (4.50-10.00) X 10*3/uL MCHC (32.0-37.0) g/dL Immature Gran # (0.00-0.04) X 10*3/uL Neutrophils # (1.80-7.70) X 10*3/uL Lymphocytes # (0.90-5.00) X 10*3/uL Eosinophils # (0.04-0.35) X 10*3/uL Creatinine (0.6-1.5) mg/dL BUN/Creatinine Ratio (12.00-20.00) Ratio Glucose (70-110) mg/dL POC Glucose (mg/dL) 196 H (75-99) mg/dL C-Reactive Protein (0.0-0.8) mg/dL Procalcitonin (0.02-0.09) ng/mL Microbiology - Last 24 Hours (Table) 11/07/20 12:15 Blood Culture - Preliminary Blood No Growth after 24 hours Assessment and Plan Plan: 1 acute bilobar pneumonia involving the left upper and left lower lobe with significant consolidation of the left upper lobe lingular segment in addition to mediastinal lymphadenopathy which could be reactive versus malignant. The patient's left hilar, paratracheal and subcarinal soft tissue density/lymph nodes. 2 acute COPD exacerbation secondary to above, currently on a combination of bronchodilators and systemic steroids. 3 dyspnea secondary to above 4 acute hypoxic respiratory failure currently on 4 L about 2 by nasal cannula 5 history of migraines 6 history of hiatal hernia with acid reflux 7 mild leukocytosis 8 history of weight loss plan Continue DuoNeb ar nebulized treatments [id number] Pertinent antibiotic coverage includes Zosyn and Levaquin for now obtain sputum Gram stain and culture , the blood cultures of been negative thus far Repeat chest x-ray in the morning Clinically slightly better Monitor the white cell count which is elevated at 19 Provide the patient incentive spirometer will need to follow up this patient for complete clearing of this pulmonary infiltrates/consolidation. Would also need to follow-up the mediastinal lymph nodes to rule out any potential malignancy.
[2020-11-09] MEDS: IPRATROPIUM-ALBUTEROL 3 ML NEB INHALATION SCH ×3 (12:01→19:29)
[2020-11-09 12:56] LABS: HCT 41.5 % (37.2-46.3); HGB 12.7 g/dL (12.0-15.0); MCH 28.9 pg (27.0-32.0); MCHC 30.6 g/dL (32.0-37.0); MCV 94.3 fL (80.0-97.0); Mean Platelet Volume 9.6 fL (9.5-12.2); Platelet Count 508 X 10*3/uL (140-440); RDW 13.2 % (11.5-14.5); WBC 28.87 X 10*3/uL (4.50-10.00)
[2020-11-09 15:09] LABS: Basophils # (A) 0.05 X 10*3/uL (0.00-0.10); Basophils % (A) 0.2 %; Eosinophils # (A) 0 X 10*3/uL (0.04-0.35); Eosinophils % (A) 0 %; Lymphocytes # (A) 0.83 X 10*3/uL (0.90-5.00); Lymphocytes % (A) 2.9 %; Monocytes # (A) 0.47 X 10*3/uL (0.20-1.00); Monocytes % (A) 1.6 %; Neutrophils # (A) 27.07 X 10*3/uL (1.80-7.70); Neutrophils % (A) 93.7 %
[2020-11-09 16:17] LABS: African American GFR (CKD) 114.8 (60.0-200.0); Anion Gap 10.1 mmol/L (4.00-12.00); BUN/Creat Ratio 28.33 Ratio (12.00-20.00); Calcium 8.8 mg/dL (8.7-10.3); Carbon Dioxide 28.9 mmol/L (21.6-31.8); Non-African American GFR(CKD) 99.1 (60.0-200.0)
[2020-11-09 16:37] LABS: Glucose,Whole Blood 295 mg/dL (75-99)
[2020-11-09] MEDS: LEVOFLOXACIN 750 MG TAB PO SCH (17:15)
[2020-11-09] MEDS: BENZOCAINE/MENTHOL LOZENG 1 EACH LOZENGE MUCOUS MEM PRN (17:35)
[2020-11-09] MEDS: BENZONATATE 100 MG CAP PO SCH ×2 (17:35→22:17)
[2020-11-09] MEDS: VENLAFAXINE HCL ER 37.5 MG CAP PO SCH (20:31)
[2020-11-09] MEDS: ACETAMINOPHEN TAB 325 MG TAB PO PRN (20:32)
[2020-11-09] MEDS: DOCUSATE 100 MG CAP PO SCH (20:32)
[2020-11-09 20:35] LABS: Glucose,Whole Blood 282 mg/dL (75-99)
[2020-11-10 06:48] LABS: Glucose,Whole Blood 144 mg/dL (75-99)
[2020-11-10] MEDS: methylPREDNISolone SOD SUCCI 125 MG/2 ML VIAL IV SCH ×5 (07:26→21:04)
[2020-11-10] MEDS: PIPERACILLIN-TAZOBACTAM 3.375 GM in SODIUM CHLORIDE 0.9% 100 ML IVPB SCH ×3 (07:27→17:53)
[2020-11-10] MEDS: MULTIVITAMINS, THERA 1 EACH TAB PO SCH (08:14)
[2020-11-10] MEDS: ATORVASTATIN 10 MG TAB PO SCH (08:14)
[2020-11-10] MEDS: DOCUSATE 100 MG CAP PO SCH (08:14)
[2020-11-10] MEDS: INSULIN ASPART (NovoLOG) 100 UNIT/ML VIAL SQ SCH ×4 (08:15→21:05)
[2020-11-10] MEDS: ENOXAPARIN 40 MG/0.4 ML SYRINGE SQ SCH (08:15)
[2020-11-10] MEDS: BENZONATATE 100 MG CAP PO SCH ×3 (08:15→21:04)
[2020-11-10] MEDS: clonazePAM 1 MG TAB PO PRN ×3 (08:21→23:59)
[2020-11-10] MEDS: IPRATROPIUM-ALBUTEROL 3 ML NEB INHALATION SCH ×4 (08:26→21:04)
--- NOTE | 2020-11-10 09:03 | XR ---
EXAMINATION TYPE: XR chest 1V portable DATE OF EXAM: 11/10/2020 COMPARISON: 11/08/2020 HISTORY: Shortness of breath TECHNIQUE: Single frontal view of the chest is obtained. FINDINGS: Bilateral areas of patchy infiltrate are seen with small left effusion. Interval developme nt of right upper lobe infiltrate. No pneumothorax. Heart size normal. Osseous structures stable. IMPRESSION: 1. Left lower lobe infiltrate and small effusion stable. 2. There is interval development of right upper lobe infiltrate correlate for pneumonia.
[2020-11-10 11:20] LABS: Glucose,Whole Blood 231 mg/dL (75-99)
[2020-11-10 12:11] LABS: Basophils # (A) 0.1 k/uL (0-0.2); Basophils % (A) 1 %; Eosinophils # (A) 0.1 k/uL (0-0.7); Eosinophils % (A) 0 %; HCT 43.2 % (34.0-46.0); HGB 13.3 gm/dL (11.4-16.0); Hypochromasia Slight; Lymphocytes # (A) 0.5 k/uL (1.0-4.8); Lymphocytes % (A) 2 %; MCH 30.1 pg (25.0-35.0); MCHC 30.8 g/dL (31.0-37.0); Mean Platelet Volume 8.4; Monocytes # (A) 0.9 k/uL (0-1.0); Monocytes % (A) 4 %; Neutrophils # (A) 21.7 k/uL (1.3-7.7); Neutrophils % (A) 93 %; Platelet Count 562 k/uL (150-450); RBC 4.43 m/uL (3.80-5.40); RDW 13.2 % (11.5-15.5); WBC 23.3 k/uL (3.8-10.6)
[2020-11-10 12:15] LABS: African American GFR (CKD) 121.9 (60.0-200.0); Albumin 3.3 g/dL (3.80-4.90); Albumin/Globulin Ratio 1.27 (1.60-3.17); Anion Gap 9.8 mmol/L (4.00-12.00); Calcium 9.2 mg/dL (8.7-10.3); Carbon Dioxide 33.2 mmol/L (21.6-31.8); Globulin 2.6 g/dL (1.6-3.3); Non-African American GFR(CKD) 105.2 (60.0-200.0); Potassium 4.1 mmol/L (3.5-5.5); Total Bilirubin 0.2 mg/dL (0.3-1.2); Total Protein 5.9 g/dL (6.2-8.2)
[2020-11-10 12:20] LABS: MCV 97.5 fL (80.0-100.0)
--- NOTE | 2020-11-10 13:58 | P.PN ---
Subjective Progress Note Date: 11/10/20 60-year-old female patient, coming in for worsening shortness of breath. The patient is known to have COPD. She is a chronic smoker. She is not oxygen dependent. She doesn't use anything for maintenance in regards to her COPD. She had increased dyspnea cough chest tightness and wheezing she came into the hospital and the patient was found to have a pneumonia and COPD exacerbation. Chest x-ray showed a left lower lobe infiltrate. Computed tomography scan of the chest was also done and showed left upper and left lower lobe pulmonary infiltration. There was also evidence of filling defect in the left mainstem bronchus, likely secondary to mucus and secretions. There is also evidence of a left hilar lymph nodes as the patient was found to have left hilar and mediastinal lymphadenopathy and a soft tissue mass in the precarinal space measuring up to 3.6 cm in size and malignancy was obviously a concern. The pulmonary artery branches were suboptimally visualized and no filling defect was seen in the visualized arteries. The patient underwent a white cell count of 19.9 and the pro calcitonin level was at 0.1. A electrodes are within normal limits and the patient is currently on a combination of Zosyn and Levaquin. COVID-19 testing was negative and EKG showed a normal sinus tachycardia without evidence of any acute ischemic changes. 01/10/2021 and seeing the patient for a follow-up. The patient was hospitalized for an extensive left lung pneumonia. She is currently on a combination of Zosyn and Levaquin. Will pro calcitonin level was mildly elevated at 0.10. The patient had a white cell count of 19.9 which is stable compared to the day before. She is on examination Zosyn and Levaquin. Cultures are still pending for now. The blood cultures negative for now. No fever. COVID-19 testing was negative. She remains on 4 L of oxygen by nasal cannula with a pulse ox of 92%. She also has a component of COPD exacerbation. She is on bronchodilators and IV Solu-Medrol. Legionella urine antigen was sent and results are still pending for now. Clinically she is slightly improved. 11/10/2020 the patient is being seen in follow-up regarding her left lower lobe pneumonia. The patient had an extensive left lung pneumonia involving the left upper and left lower lobe. She is on a combination of Zosyn and Levaquin. Repeat chest x-ray was done. Findings of the left lung are rather stable, slightly improved. Nevertheless, the patient developed a new infiltration of the right upper lobe. She is anxious. She is currently on oxygen at 4 L per minute nasal cannula. The white cell count is still elevated at 23. Platelet is at 562. Electrolytes and renal functions are normal. The patient had a progesterone level of 0.1. Mild elevation of the liver function tests. BUN is at extremity with a creatinine of 0.5. Total protein was 5.9 with an albumin of 3.3. Legionella urine antigen came back negative. Sputum Gram stain and culture is negative. Blood cultures also negative. She continues to have a cough. Unable to bring up much sputum. She is afebrile. Objective - Vital Signs Vital signs: Vital Signs Temp 97.5 F L 11/10/20 08:00 Pulse 80 11/10/20 12:01 Resp 18 11/10/20 08:00 BP 128/82 11/10/20 08:00 Pulse Ox 95 11/10/20 08:00 Intake & Output 11/09/20 11/10/20 11/10/20 18:59 06:59 18:59 Other: Voiding Method Toilet Toilet # Voids 3 2 - Exam GENERAL: The patient is alert and oriented x3, not in any acute distress. Well developed, well nourished. HEENT: Pupils are round and equally reacting to light. EOMI. No scleral icterus. No conjunctival pallor. Normocephalic, atraumatic. No pharyngeal erythema. No thyromegaly. CARDIOVASCULAR: S1 and S2 present. No murmurs, rubs, or gallops. PULMONARY: Chest is clear to auscultation, no wheezing or crackles. ABDOMEN: Soft, nontender, nondistended, normoactive bowel sounds. No palpable organomegaly. MUSCULOSKELETAL: No joint swelling or deformity. EXTREMITIES: No cyanosis, clubbing, or pedal edema. NEUROLOGICAL: Gross neurological examination did not reveal any focal deficits. SKIN: No rashes. - Labs CBC & Chem 7: 11/10/20 04:26 11/10/20 04:26 Labs: Abnormal Lab Results - Last 24 Hours (Table) 11/09/20 11/09/20 11/09/20 Range/Units 06:06 06:06 16:35 WBC (3.8-10.6) k/uL MCHC (31.0-37.0) g/dL Plt Count (150-450) k/uL Plt Count Comment INCREASED A Immature Gran # 0.45 H (0.00-0.04) X 10*3/uL Neutrophils # 27.07 H (1.80-7.70) X 10*3/uL Lymphocytes # 0.83 L (0.90-5.00) X 10*3/uL Eosinophils # 0 L (0.04-0.35) X 10*3/uL Carbon Dioxide (21.6-31.8) mmol/L Creatinine (0.6-1.5) mg/dL BUN/Creatinine Ratio 28.33 H (12.00-20.00) Ratio Glucose 202 H (70-110) mg/dL POC Glucose (mg/dL) 295 H (75-99) mg/dL Total Bilirubin (0.3-1.2) mg/dL AST (13-35) U/L ALT (8-44) U/L Total Protein (6.2-8.2) g/dL Albumin (3.80-4.90) g/dL Albumin/Globulin Ratio (1.60-3.17) g/dL 11/09/20 11/10/20 11/10/20 Range/Units 20:34 04:26 04:26 WBC 23.3 H (3.8-10.6) k/uL MCHC 30.8 L (31.0-37.0) g/dL Plt Count 562 H (150-450) k/uL Plt Count Comment Immature Gran # (0.00-0.04) X 10*3/uL Neutrophils # 21.7 H (1.80-7.70) X 10*3/uL Lymphocytes # 0.5 L (0.90-5.00) X 10*3/uL Eosinophils # (0.04-0.35) X 10*3/uL Carbon Dioxide 33.2 H (21.6-31.8) mmol/L Creatinine 0.5 L (0.6-1.5) mg/dL BUN/Creatinine Ratio 32.00 H (12.00-20.00) Ratio Glucose 137 H (70-110) mg/dL POC Glucose (mg/dL) 282 H (75-99) mg/dL Total Bilirubin 0.2 L (0.3-1.2) mg/dL AST 42 H (13-35) U/L ALT 205 H (8-44) U/L Total Protein 5.9 L (6.2-8.2) g/dL Albumin 3.30 L (3.80-4.90) g/dL Albumin/Globulin Ratio 1.27 L (1.60-3.17) g/dL 11/10/20 11/10/20 Range/Units 06:46 11:19 WBC (3.8-10.6) k/uL MCHC (31.0-37.0) g/dL Plt Count (150-450) k/uL Plt Count Comment Immature Gran # (0.00-0.04) X 10*3/uL Neutrophils # (1.80-7.70) X 10*3/uL Lymphocytes # (0.90-5.00) X 10*3/uL Eosinophils # (0.04-0.35) X 10*3/uL Carbon Dioxide (21.6-31.8) mmol/L Creatinine (0.6-1.5) mg/dL BUN/Creatinine Ratio (12.00-20.00) Ratio Glucose (70-110) mg/dL POC Glucose (mg/dL) 144 H 231 H (75-99) mg/dL Total Bilirubin (0.3-1.2) mg/dL AST (13-35) U/L ALT (8-44) U/L Total Protein (6.2-8.2) g/dL Albumin (3.80-4.90) g/dL Albumin/Globulin Ratio (1.60-3.17) g/dL Microbiology - Last 24 Hours (Table) 11/09/20 09:21 Gram Stain - Preliminary Sputum Sputum Culture - Preliminary 11/07/20 12:15 Blood Culture - Preliminary Blood No Growth after 48 hours Assessment and Plan Plan: 1 acute bilobar pneumonia involving the left upper and left lower lobe with significant consolidation of the left upper lobe lingular segment in addition to mediastinal lymphadenopathy which could be reactive versus malignant. The patient's left hilar, paratracheal and subcarinal soft tissue density/lymph nodes. Noted on today's evaluation the patient is still on 40% oxygen by nasal cannula. The patient's probably has some fluid in the left lower lobe and left sided infiltrate. There is some interval worsening or development of a right upper lobe pulmonary infiltrates. Legionella urine antigen is negative. Sputum Gram stain and culture is negative. Blood cultures negative. White cell count is at 23. She remains on a combination of Zosyn and Levaquin for now. She is also on steroids. 2 acute COPD exacerbation secondary to above, currently on a combination of bronchodilators and systemic steroids. 3 dyspnea secondary to above 4 acute hypoxic respiratory failure currently on 4 L about 2 by nasal cannula 5 history of migraines 6 history of hiatal hernia with acid reflux 7 mild leukocytosis 8 history of weight loss plan Continue DuoNeb nebulized treatments [id number] Pertinent antibiotic coverage includes Zosyn and Levaquin for now The patient is also on IV Solu-Medrol. Repeat chest x-ray in the morning, showed some interval worsening of the right upper lobe pulmonary infiltrate. Left lung infiltrate especially in the left lower lobe is improved. All of the cultures of been negative thus far. Clinically slightly better Monitor the white cell count which is elevated at 23 Provide the patient incentive spirometer May consider bronchoscopy and lavage if no improvement in her condition over the next 24 hours. We'll repeat a chest x-ray in a.m. will need to follow up this patient for complete clearing of this pulmonary infiltrates/consolidation. Would also need to follow-up the mediastinal lymph nodes to rule out any potential malignancy.
[2020-11-10] MEDS ORDERED: LORazepam 2 MG/ML INJ IV STA (14:01)
[2020-11-10 16:31] LABS: Glucose,Whole Blood 134 mg/dL (75-99)
[2020-11-10] MEDS: LEVOFLOXACIN 750 MG TAB PO SCH (17:53)
[2020-11-10 20:41] LABS: Glucose,Whole Blood 247 mg/dL (75-99)
[2020-11-10] MEDS: VENLAFAXINE HCL ER 37.5 MG CAP PO SCH (21:52)
[2020-11-10] MEDS ORDERED: ACETAMINOPHEN TAB 325 MG TAB ONE (23:59)
[2020-11-10] MEDS ORDERED: clonazePAM 1 MG TAB ONE (23:59)
[2020-11-10] MEDS ORDERED: PIPERACILLIN-TAZOBACTAM 3.375 GM VIAL ONE (23:59)
[2020-11-10] MEDS ORDERED: SODIUM CHLORIDE 0.9% 100 ML BAG ONE (23:59)
[2020-11-10] MEDS ORDERED: methylPREDNISolone SOD SUCCI 125 MG/2 ML VIAL ONE (23:59)
[2020-11-11] MEDS: PIPERACILLIN-TAZOBACTAM 3.375 GM in SODIUM CHLORIDE 0.9% 100 ML IVPB SCH ×3 (00:40→17:58)
[2020-11-11] MEDS: methylPREDNISolone SOD SUCCI 125 MG/2 ML VIAL IV SCH ×3 (05:08→17:59)
[2020-11-11] MEDS: clonazePAM 1 MG TAB PO PRN ×3 (06:53→18:03)
[2020-11-11 06:56] LABS: Glucose,Whole Blood 130 mg/dL (75-99)
[2020-11-11] MEDS: INSULIN ASPART (NovoLOG) 100 UNIT/ML VIAL SQ SCH ×4 (07:24→21:28)
[2020-11-11] MEDS: IPRATROPIUM-ALBUTEROL 3 ML NEB INHALATION SCH ×4 (08:51→21:23)
[2020-11-11 09:15] LABS: Basophils # (A) 0.04 X 10*3/uL (0.00-0.10); Basophils % (A) 0.2 %; Eosinophils # (A) 0 X 10*3/uL (0.04-0.35); Eosinophils % (A) 0 %; HCT 42.7 % (37.2-46.3); HGB 13.1 g/dL (12.0-15.0); Lymphocytes # (A) 0.98 X 10*3/uL (0.90-5.00); MCH 29.3 pg (27.0-32.0); MCHC 30.7 g/dL (32.0-37.0); MCV 95.5 fL (80.0-97.0); Mean Platelet Volume 9.2 fL (9.5-12.2); Monocytes # (A) 0.84 X 10*3/uL (0.20-1.00); Monocytes % (A) 3.5 %; Neutrophils # (A) 21.99 X 10*3/uL (1.80-7.70); Neutrophils % (A) 90.4 %; Platelet Count 582 X 10*3/uL (140-440); RBC 4.47 X 10*6/uL (4.10-5.20); RDW 13.4 % (11.5-14.5)
--- NOTE | 2020-11-11 09:24 | XR ---
EXAMINATION TYPE: XR chest 2V DATE OF EXAM: 11/11/2020 COMPARISON: 11/10/2020 TECHNIQUE: PA and lateral views submitted. HISTORY: Shortness of breath FINDINGS: Bilateral areas of infiltrate including the left lower lobe and right upper lobe are stable. As a sma ll left pleural effusion with no sizable pneumothorax. Heart size normal. Osseous structures stable. IMPRESSION: 1. Bilateral infiltrate suggestive of pneumonia stable.
[2020-11-11] MEDS: DOCUSATE 100 MG CAP PO SCH (10:01)
[2020-11-11] MEDS: ATORVASTATIN 10 MG TAB PO SCH (10:02)
[2020-11-11] MEDS: MULTIVITAMINS, THERA 1 EACH TAB PO SCH (10:02)
[2020-11-11] MEDS: BENZONATATE 100 MG CAP PO SCH ×3 (10:03→21:29)
[2020-11-11] MEDS: ENOXAPARIN 40 MG/0.4 ML SYRINGE SQ SCH (10:04)
--- NOTE | 2020-11-11 10:13 | P.PN ---
Subjective Progress Note Date: 11/08/20 Principal diagnosis: Left lower lobe pneumonia Acute COPD exacerbation 60-year-old female history of COPD who states she's had shortness of breath or past 2 weeks is getting worse and refractory to her home medications he also is had nausea vomiting. She's had decreased oral intake she is has some fevers chills sweats also she states. Some chest discomfort due to breathing. No diarrhea. She states she did had the COVID-19 shots with the last one being in the end of July. No other current complaints or modifying factors she is currently somewhat nauseated Workup completed in ED; Sinus tachycardia rate 107. Interval 116 QRS duration 88 QT/QTC 324/432 possible left atrial enlargement evidence a left axis deviation CAT scan of the chest reveals evidence of left upper and lower lobe infiltrate evidence of hilar adenopathy mastectomy ruled out no definitive evidence of PE Laboratory review shows an elevated white blood count of 19.9, hemoglobin of 15.3 and platelet count of 431, sodium 133, potassium 3.7, BUN/creatinine of 8/0.35, AST/ALT elevated at 43/58 Patient is admitted to the hospital for acute exacerbation COPD and aspiration pneumonia with further evaluation of hilar lymphadenopathy 11/08/2020 Patient is currently sitting in the bed. Awake alert but anxious and still complaining of shortness of breath. No fever no chills. A carrasco is being caitlin nued on DuoNeb's, steroids and antibiotics in form of Levaquin and Zosyn. No complaints of nausea vomiting or abdominal pain or diarrhea. No chest pain. Laboratory data showed WBC 19.9 hemoglobin 12.3 and platelets 396 Sodium 140 potassium 4.1 chloride 102 bicarb is 30.7 blood sugar is 160 Current medications reviewed. Objective - Vital Signs Vital signs: Vital Signs Temp 97.8 F 11/08/20 14:00 Pulse 90 11/08/20 15:33 Resp 18 11/08/20 14:00 BP 107/70 11/08/20 14:00 Pulse Ox 90 L 11/08/20 14:00 Intake & Output 11/07/20 11/08/20 11/08/20 18:59 06:59 18:59 Intake Total 100 250 Balance 100 250 Weight 58.967 kg Intake: Intake, IV Titration 100 Amount Piperacillin-Tazobactam 3 100 .375 gm In Sodium Chloride 0.9% 100 ml @ 25 mls/hr IVPB Q8HR [facility] Rx# :[id number] Oral 250 Other: # Voids 3 3 - Exam PHYSICAL EXAMINATION: Patient is lying in the bed comfortably, no acute distress, awake alert and oriented. Patient is anxious.. HEENT: Normocephalic. Neck is supple. Pupils reactive. Nostrils clear. Oral cavity is moist. Neck reveals no JVD, carotid bruits, or thyromegaly. CHEST EXAMINATION: Trachea is central. Symmetrical expansion. Left basilar crackles and scattered rhonchi. Nonlabored breathing.. CARDIAC: Normal S1, S2 with no gallops. No murmurs ABDOMEN: Soft. Bowel sounds normal. No organomegaly. No abdominal bruits. Extremities: reveal no edema. No clubbing or cyanosis Neurologically awake, alert, oriented x3 with well-coordinated movements. No focal deficits noted Skin: No rash or skin lesions. Psychiatric: Coperative. Nonsuicidal. Anxious. Musculoskeletal: No joint swelling or deformity. Normal range of motion. - Labs CBC & Chem 7: 11/11/20 06:04 11/10/20 04:26 Labs: Abnormal Lab Results - Last 24 Hours (Table) 11/07/20 11/08/20 11/08/20 Range/Units 20:34 05:31 05:31 WBC 19.96 H (4.50-10.00) X 10*3/uL MCHC 31.5 L (32.0-37.0) g/dL Immature Gran # 0.17 H (0.00-0.04) X 10*3/uL Neutrophils # 18.57 H (1.80-7.70) X 10*3/uL Lymphocytes # 0.79 L (0.90-5.00) X 10*3/uL Eosinophils # 0 L (0.04-0.35) X 10*3/uL Creatinine (0.6-1.5) mg/dL BUN/Creatinine Ratio (12.00-20.00) Ratio Glucose (70-110) mg/dL POC Glucose (mg/dL) 290 H (75-99) mg/dL C-Reactive Protein (0.0-0.8) mg/dL Procalcitonin 0.10 H (0.02-0.09) ng/mL 11/08/20 11/08/20 11/08/20 Range/Units 05:31 06:48 11:23 WBC (4.50-10.00) X 10*3/uL MCHC (32.0-37.0) g/dL Immature Gran # (0.00-0.04) X 10*3/uL Neutrophils # (1.80-7.70) X 10*3/uL Lymphocytes # (0.90-5.00) X 10*3/uL Eosinophils # (0.04-0.35) X 10*3/uL Creatinine 0.4 L (0.6-1.5) mg/dL BUN/Creatinine Ratio 27.50 H (12.00-20.00) Ratio Glucose 160 H (70-110) mg/dL POC Glucose (mg/dL) 174 H 146 H (75-99) mg/dL C-Reactive Protein 18.8 H (0.0-0.8) mg/dL Procalcitonin (0.02-0.09) ng/mL 11/08/20 Range/Units 16:39 WBC (4.50-10.00) X 10*3/uL MCHC (32.0-37.0) g/dL Immature Gran # (0.00-0.04) X 10*3/uL Neutrophils # (1.80-7.70) X 10*3/uL Lymphocytes # (0.90-5.00) X 10*3/uL Eosinophils # (0.04-0.35) X 10*3/uL Creatinine (0.6-1.5) mg/dL BUN/Creatinine Ratio (12.00-20.00) Ratio Glucose (70-110) mg/dL POC Glucose (mg/dL) 221 H (75-99) mg/dL C-Reactive Protein (0.0-0.8) mg/dL Procalcitonin (0.02-0.09) ng/mL Microbiology - Last 24 Hours (Table) 11/07/20 12:15 Blood Culture - Preliminary Blood No Growth after 24 hours Assessment and Plan Assessment: 1. Acute hypoxic respiratory failure; multifactorial due to COPD exacerbation/l eft lower lobe pneumonia and upper lobe consolidation 2. Sepsis secondary to left lower lobe pneumonia and also significant consolidation of the left upper lobe. 2. Mediastinal lymphadenopathy could be reactive versus management. 2. Possible Aspiration pneumonia; patient has been placed on IV Zosyn in ED at 3.375 g IV every 8 hours; will monitor CBC, CRP and pro-calcitonin; sputum culture and blood cultures. 3. Acute exacerbation COPD; we will start patient on bronchodilator and steroid nebulizer treatments; IV Solu-Medrol; O2 per nasal cannula keeping SpO2 greater than 88% 4. Transaminitis; possibly medication induced; Zocor will be placed on hold; follow up liver enzymes. 5. Hyperlipidemia; patient takes Zocor 20 mg by mouth daily; we will hold off on statin therapy given elevated liver enzymes; repeat liver enzymes tomorrow with plans to restart therapy if stable 6. Depression/anxiety; we will continue with home dose of Effexor 37.5 mg daily at bedtime along with Klonopin 1 mg by mouth 3 times a day when necessary DVT prophylaxis; SCDs/subcu Lovenox CODE STATUS; full code Time with Patient: Greater than 30
--- NOTE | 2020-11-11 10:16 | P.PN ---
Subjective Progress Note Date: 11/09/20 Principal diagnosis: Left lower lobe pneumonia Acute COPD exacerbation 60-year-old female history of COPD who states she's had shortness of breath or past 2 weeks is getting worse and refractory to her home medications he also is had nausea vomiting. She's had decreased oral intake she is has some fevers chills sweats also she states. Some chest discomfort due to breathing. No diarrhea. She states she did had the COVID-19 shots with the last one being in the end of July. No other current complaints or modifying factors she is currently somewhat nauseated Workup completed in ED; Sinus tachycardia rate 107. Interval 116 QRS duration 88 QT/QTC 324/432 possible left atrial enlargement evidence a left axis deviation CAT scan of the chest reveals evidence of left upper and lower lobe infiltrate evidence of hilar adenopathy mastectomy ruled out no definitive evidence of PE Laboratory review shows an elevated white blood count of 19.9, hemoglobin of 15.3 and platelet count of 431, sodium 133, potassium 3.7, BUN/creatinine of 8/0.35, AST/ALT elevated at 43/58 Patient is admitted to the hospital for acute exacerbation COPD and aspiration pneumonia with further evaluation of hilar lymphadenopathy 11/08/2020 Patient is currently sitting in the bed. Awake alert but anxious and still complaining of shortness of breath. No fever no chills. A carrasco is being caitlin nued on DuoNeb's, steroids and antibiotics in form of Levaquin and Zosyn. No complaints of nausea vomiting or abdominal pain or diarrhea. No chest pain. Laboratory data showed WBC 19.9 hemoglobin 12.3 and platelets 396 Sodium 140 potassium 4.1 chloride 102 bicarb is 30.7 blood sugar is 160 11/09/2020 Patient is currently lying in the bed awake alert oriented 3. Patient is very anxious and requesting Xanax 2 increase to every 6. Continued on IV salmeterol and DuoNeb's. Patient remains on antibiotics the form of Levaquin and Zosyn. Cultures have been negative so far external laboratory data showed WBC 28.87, hemoglobin 12.7 and platelets 508 Sodium 141 potassium 4.0 chloride 102 BUN 17 and creatinine 0.6 and blood sugar is 202 Urine Legionella antigen is negative. Current medications reviewed. Objective - Vital Signs Vital signs: Vital Signs Temp 98.3 F 11/09/20 19:44 Pulse 91 07/27/21 19:44 Resp 20 11/09/20 19:22 BP 135/81 11/09/20 19:44 Pulse Ox 91 L 11/09/20 19:44 Intake & Output 11/09/20 11/09/20 11/10/20 06:59 18:59 06:59 Other: Voiding Method Toilet # Voids 0 3 - Exam PHYSICAL EXAMINATION: Patient is lying in the bed comfortably, no acute distress, awake alert and oriented. Patient is anxious.. HEENT: Normocephalic. Neck is supple. Pupils reactive. Nostrils clear. Oral cavity is moist. Neck reveals no JVD, carotid bruits, or thyromegaly. CHEST EXAMINATION: Trachea is central. Symmetrical expansion. Left basilar crackles and scattered rhonchi. Nonlabored breathing.. CARDIAC: Normal S1, S2 with no gallops. No murmurs ABDOMEN: Soft. Bowel sounds normal. No organomegaly. No abdominal bruits. Extremities: reveal no edema. No clubbing or cyanosis Neurologically awake, alert, oriented x3 with well-coordinated movements. No focal deficits noted Skin: No rash or skin lesions. Psychiatric: Coperative. Nonsuicidal. Anxious. Musculoskeletal: No joint swelling or deformity. Normal range of motion. - Labs CBC & Chem 7: 11/11/20 06:04 11/10/20 04:26 Labs: Abnormal Lab Results - Last 24 Hours (Table) 11/09/20 11/09/20 11/09/20 Range/Units 06:06 06:06 06:48 WBC 28.87 H (4.50-10.00) X 10*3/uL MCHC 30.6 L (32.0-37.0) g/dL Plt Count 508 H (140-440) X 10*3/uL Plt Count Comment INCREASED A Immature Gran # 0.45 H (0.00-0.04) X 10*3/uL Neutrophils # 27.07 H (1.80-7.70) X 10*3/uL Lymphocytes # 0.83 L (0.90-5.00) X 10*3/uL Eosinophils # 0 L (0.04-0.35) X 10*3/uL BUN/Creatinine Ratio 28.33 H (12.00-20.00) Ratio Glucose 202 H (70-110) mg/dL POC Glucose (mg/dL) 220 H (75-99) mg/dL 11/09/20 11/09/20 11/09/20 Range/Units 11:07 16:35 20:34 WBC (4.50-10.00) X 10*3/uL MCHC (32.0-37.0) g/dL Plt Count (140-440) X 10*3/uL Plt Count Comment Immature Gran # (0.00-0.04) X 10*3/uL Neutrophils # (1.80-7.70) X 10*3/uL Lymphocytes # (0.90-5.00) X 10*3/uL Eosinophils # (0.04-0.35) X 10*3/uL BUN/Creatinine Ratio (12.00-20.00) Ratio Glucose (70-110) mg/dL POC Glucose (mg/dL) 196 H 295 H 282 H (75-99) mg/dL Microbiology - Last 24 Hours (Table) 11/09/20 09:21 Sputum Culture - Preliminary Sputum 11/07/20 12:15 Blood Culture - Preliminary Blood No Growth after 48 hours Assessment and Plan Assessment: 1. Acute hypoxic respiratory failure; multifactorial due to COPD exacerbation/left lower lobe pneumonia and upper lobe consolidation 2. Sepsis secondary to left lower lobe pneumonia and also significant consolidation of the left upper lobe. 2. Mediastinal lymphadenopathy could be reactive versus management. 2. Possible Aspiration pneumonia; patient has been placed on IV Zosyn in ED at 3.375 g IV every 8 hours; will monitor CBC, CRP and pro-calcitonin; sputum culture and blood cultures. 3. Acute exacerbation COPD; we will start patient on bronchodilator and steroid nebulizer treatments; IV Solu-Medrol; O2 per nasal cannula keeping SpO2 greater than 88% 4. Transaminitis; possibly medication induced; Zocor will be placed on hold; follow up liver enzymes. 5. Hyperlipidemia; patient takes Zocor 20 mg by mouth daily; we will hold off on statin therapy given elevated liver enzymes; repeat liver enzymes tomorrow with plans to restart therapy if stable 6. Depression/anxiety; we will continue with home dose of Effexor 37.5 mg daily at bedtime along with Klonopin 1 mg by mouth 3 times a day when necessary DVT prophylaxis; SCDs/subcu Lovenox CODE STATUS; full code Time with Patient: Greater than 30
--- NOTE | 2020-11-11 10:22 | P.PN ---
Subjective Progress Note Date: 11/10/20 Principal diagnosis: Left lower lobe pneumonia Acute COPD exacerbation 60-year-old female history of COPD who states she's had shortness of breath or past 2 weeks is getting worse and refractory to her home medications he also is had nausea vomiting. She's had decreased oral intake she is has some fevers chills sweats also she states. Some chest discomfort due to breathing. No diarrhea. She states she did had the COVID-19 shots with the last one being in the end of July. No other current complaints or modifying factors she is currently somewhat nauseated Workup completed in ED; Sinus tachycardia rate 107. Interval 116 QRS duration 88 QT/QTC 324/432 possible left atrial enlargement evidence a left axis deviation CAT scan of the chest reveals evidence of left upper and lower lobe infiltrate evidence of hilar adenopathy mastectomy ruled out no definitive evidence of PE Laboratory review shows an elevated white blood count of 19.9, hemoglobin of 15.3 and platelet count of 431, sodium 133, potassium 3.7, BUN/creatinine of 8/0.35, AST/ALT elevated at 43/58 Patient is admitted to the hospital for acute exacerbation COPD and aspiration pneumonia with further evaluation of hilar lymphadenopathy 11/08/2020 Patient is currently sitting in the bed. Awake alert but anxious and still complaining of shortness of breath. No fever no chills. A carrasco is being caitlin nued on DuoNeb's, steroids and antibiotics in form of Levaquin and Zosyn. No complaints of nausea vomiting or abdominal pain or diarrhea. No chest pain. Laboratory data showed WBC 19.9 hemoglobin 12.3 and platelets 396 Sodium 140 potassium 4.1 chloride 102 bicarb is 30.7 blood sugar is 160 11/09/2020 Patient is currently lying in the bed awake alert oriented 3. Patient is very anxious and requesting Xanax 2 increase to every 6. Continued on IV salmeterol and DuoNeb's. Patient remains on antibiotics the form of Levaquin and Zosyn. Cultures have been negative so far external laboratory data showed WBC 28.87, hemoglobin 12.7 and platelets 508 Sodium 141 potassium 4.0 chloride 102 BUN 17 and creatinine 0.6 and blood sugar is 202 Urine Legionella antigen is negative. 11/10/2020 Patient is still complaining of shortness of breath. Also complains of cough. No chest pain. Currently requiring oxygen at 4 L via nasal cannula. Patient has been afebrile. Laboratory data showed WBC 23.3 hemoglobin 13.3 and platelets 562 Continue on antibiotics in the form of Levaquin and Zosyn. Repeat chest x-ray showed left lower lobe infiltrate and small effusion stable. There is interval development of right upper lobe infiltrate correlate for pneumonia. Sputum cultures and blood cultures have been negative. Urine Legionella antigen is also negative. Current medications reviewed. Objective - Vital Signs Vital signs: Vital Signs Temp 98.1 F 11/10/20 20:00 Pulse 89 11/10/20 20:00 Resp 20 11/10/20 20:00 BP 120/79 11/10/20 20:00 Pulse Ox 90 L 11/10/20 20:00 Intake & Output 11/10/20 11/10/20 11/11/20 06:59 18:59 06:59 Other: Voiding Method Toilet # Voids 2 3 # Bowel Movements 1 - Exam PHYSICAL EXAMINATION: Patient is lying in the bed comfortably, no acute distress, awake alert and oriented. Patient is anxious.. HEENT: Normocephalic. Neck is supple. Pupils reactive. Nostrils clear. Oral cavity is moist. Neck reveals no JVD, carotid bruits, or thyromegaly. CHEST EXAMINATION: Trachea is central. Symmetrical expansion. Left basilar crackles and scattered rhonchi. Nonlabored breathing.. CARDIAC: Normal S1, S2 with no gallops. No murmurs ABDOMEN: Soft. Bowel sounds normal. No organomegaly. No abdominal bruits. Extremities: reveal no edema. No clubbing or cyanosis Neurologically awake, alert, oriented x3 with well-coordinated movements. No focal deficits noted Skin: No rash or skin lesions. Psychiatric: Coperative. Nonsuicidal. Anxious. Musculoskeletal: No joint swelling or deformity. Normal range of motion. - Labs CBC & Chem 7: 11/11/20 06:04 11/10/20 04:26 Labs: Abnormal Lab Results - Last 24 Hours (Table) 11/10/20 11/10/20 11/10/20 Range/Units 04:26 04:26 06:46 WBC 23.3 H (3.8-10.6) k/uL MCHC 30.8 L (31.0-37.0) g/dL Plt Count 562 H (150-450) k/uL Neutrophils # 21.7 H (1.3-7.7) k/uL Lymphocytes # 0.5 L (1.0-4.8) k/uL Carbon Dioxide 33.2 H (21.6-31.8) mmol/L Creatinine 0.5 L (0.6-1.5) mg/dL BUN/Creatinine Ratio 32.00 H (12.00-20.00) Ratio Glucose 137 H (70-110) mg/dL POC Glucose (mg/dL) 144 H (75-99) mg/dL Total Bilirubin 0.2 L (0.3-1.2) mg/dL AST 42 H (13-35) U/L ALT 205 H (8-44) U/L Total Protein 5.9 L (6.2-8.2) g/dL Albumin 3.30 L (3.80-4.90) g/dL Albumin/Globulin Ratio 1.27 L (1.60-3.17) g/dL 11/10/20 11/10/20 11/10/20 Range/Units 11:19 16:29 20:40 WBC (3.8-10.6) k/uL MCHC (31.0-37.0) g/dL Plt Count (150-450) k/uL Neutrophils # (1.3-7.7) k/uL Lymphocytes # (1.0-4.8) k/uL Carbon Dioxide (21.6-31.8) mmol/L Creatinine (0.6-1.5) mg/dL BUN/Creatinine Ratio (12.00-20.00) Ratio Glucose (70-110) mg/dL POC Glucose (mg/dL) 231 H 134 H 247 H (75-99) mg/dL Total Bilirubin (0.3-1.2) mg/dL AST (13-35) U/L ALT (8-44) U/L Total Protein (6.2-8.2) g/dL Albumin (3.80-4.90) g/dL Albumin/Globulin Ratio (1.60-3.17) g/dL Microbiology - Last 24 Hours (Table) 11/07/20 12:15 Blood Culture - Preliminary Blood No Growth after 72 hours 11/09/20 09:21 Gram Stain - Preliminary Sputum Sputum Culture - Preliminary Assessment and Plan Assessment: 1. Acute hypoxic respiratory failure; multifactorial due to COPD exacerbation/left lower lobe pneumonia and upper lobe consolidation/multifocal pneumonia 2. Sepsis secondary to left lower lobe pneumonia and also significant consolidation of the left upper lobe. 2. Mediastinal lymphadenopathy could be reactive versus management. 2. Possible Aspiration pneumonia; patient has been placed on IV Zosyn in ED at 3.375 g IV every 8 hours; will monitor CBC, CRP and pro-calcitonin; sputum culture and blood cultures. 3. Acute exacerbation COPD; we will start patient on bronchodilator and steroid nebulizer treatments; IV Solu-Medrol; O2 per nasal cannula keeping SpO2 greater than 88% 4. Transaminitis; possibly medication induced; Zocor will be placed on hold; follow up liver enzymes. 5. Hyperlipidemia; patient takes Zocor 20 mg by mouth daily; we will hold off on statin therapy given elevated liver enzymes; repeat liver enzymes tomorrow with plans to restart therapy if stable 6. Depression/anxiety; we will continue with home dose of Effexor 37.5 mg daily at bedtime along with Klonopin 1 mg by mouth 3 times a day when necessary DVT prophylaxis; SCDs/subcu Lovenox CODE STATUS; full code Time with Patient: Greater than 30
[2020-11-11] MEDS: ACETAMINOPHEN TAB 325 MG TAB PO PRN (10:23)
[2020-11-11 11:30] LABS: Glucose,Whole Blood 129 mg/dL (75-99)
[2020-11-11] MEDS: oxyCODONE-APAP 7.5-325MG 1 EACH TAB PO PRN ×2 (14:19→22:36)
--- NOTE | 2020-11-11 14:26 | P.PN ---
Subjective Progress Note Date: 11/11/20 60-year-old female patient, coming in for worsening shortness of breath. The patient is known to have COPD. She is a chronic smoker. She is not oxygen dependent. She doesn't use anything for maintenance in regards to her COPD. She had increased dyspnea cough chest tightness and wheezing she came into the hospital and the patient was found to have a pneumonia and COPD exacerbation. Chest x-ray showed a left lower lobe infiltrate. Computed tomography scan of the chest was also done and showed left upper and left lower lobe pulmonary infiltration. There was also evidence of filling defect in the left mainstem bronchus, likely secondary to mucus and secretions. There is also evidence of a left hilar lymph nodes as the patient was found to have left hilar and mediastinal lymphadenopathy and a soft tissue mass in the precarinal space measuring up to 3.6 cm in size and malignancy was obviously a concern. The pulmonary artery branches were suboptimally visualized and no filling defect was seen in the visualized arteries. The patient underwent a white cell count of 19.9 and the pro calcitonin level was at 0.1. A electrodes are within normal limits and the patient is currently on a combination of Zosyn and Levaquin. COVID-19 testing was negative and EKG showed a normal sinus tachycardia without evidence of any acute ischemic changes. 01/10/2021 and seeing the patient for a follow-up. The patient was hospitalized for an extensive left lung pneumonia. She is currently on a combination of Zosyn and Levaquin. Will pro calcitonin level was mildly elevated at 0.10. The patient had a white cell count of 19.9 which is stable compared to the day before. She is on examination Zosyn and Levaquin. Cultures are still pending for now. The blood cultures negative for now. No fever. COVID-19 testing was negative. She remains on 4 L of oxygen by nasal cannula with a pulse ox of 92%. She also has a component of COPD exacerbation. She is on bronchodilators and IV Solu-Medrol. Legionella urine antigen was sent and results are still pending for now. Clinically she is slightly improved. 11/10/2020 the patient is being seen in follow-up regarding her left lower lobe pneumonia. The patient had an extensive left lung pneumonia involving the left upper and left lower lobe. She is on a combination of Zosyn and Levaquin. Repeat chest x-ray was done. Findings of the left lung are rather stable, slightly improved. Nevertheless, the patient developed a new infiltration of the right upper lobe. She is anxious. She is currently on oxygen at 4 L per minute nasal cannula. The white cell count is still elevated at 23. Platelet is at 562. Electrolytes and renal functions are normal. The patient had a progesterone level of 0.1. Mild elevation of the liver function tests. BUN is at extremity with a creatinine of 0.5. Total protein was 5.9 with an albumin of 3.3. Legionella urine antigen came back negative. Sputum Gram stain and culture is negative. Blood cultures also negative. She continues to have a cough. Unable to bring up much sputum. She is afebrile. 11/11/2020, the patient is clinically stable and unchanged. No worsening her rest or status. Chest x-ray showing a stable left lower lobe pulmonary infiltrates/left upper lobe pulmonary infiltrates/pneumonia. Addition to that there is infiltration of the right upper lobe which is stable probably improved compared to yesterday's chest x-ray. She is still on 4 L of oxygen by nasal cannula. She is on examination of Zosyn and Levaquin. Cultures of been all negative. White cell count elevated at 24.3. Hemoglobin is at 15.1. She has underlying COPD. She is on rhonchi dilators speech is on IV Solu-Medrol. Legionella urine and sputum and out to be negative. Sputum Gram stain cultures negative. Blood cultures negative. COVID-19 testing came back also negative. Objective - Vital Signs Vital signs: Vital Signs Temp 98.0 F 11/11/20 08:00 Pulse 76 11/11/20 12:40 Resp 18 11/11/20 08:10 BP 135/84 11/11/20 08:00 Pulse Ox 91 L 11/11/20 08:00 Intake & Output 11/10/20 11/11/20 11/11/20 18:59 06:59 18:59 Other: Voiding Method Toilet Toilet # Voids 3 3 3 # Bowel Movements 1 - Exam GENERAL: The patient is alert and oriented x3, not in any acute distress. Well developed, well nourished. HEENT: Pupils are round and equally reacting to light. EOMI. No scleral icterus. No conjunctival pallor. Normocephalic, atraumatic. No pharyngeal erythema. No thyromegaly. CARDIOVASCULAR: S1 and S2 present. No murmurs, rubs, or gallops. PULMONARY: Chest is clear to auscultation, no wheezing or crackles. ABDOMEN: Soft, nontender, nondistended, normoactive bowel sounds. No palpable organomegaly. MUSCULOSKELETAL: No joint swelling or deformity. EXTREMITIES: No cyanosis, clubbing, or pedal edema. NEUROLOGICAL: Gross neurological examination did not reveal any focal deficits. SKIN: No rashes. - Labs CBC & Chem 7: 11/11/20 06:04 11/10/20 04:26 Labs: Abnormal Lab Results - Last 24 Hours (Table) 11/10/20 11/10/20 11/11/20 Range/Units 16:29 20:40 06:04 WBC 24.30 H (4.50-10.00) X 10*3/uL MCHC 30.7 L (32.0-37.0) g/dL Plt Count 582 H (140-440) X 10*3/uL MPV 9.2 L (9.5-12.2) fL Immature Gran # 0.45 H (0.00-0.04) X 10*3/uL Neutrophils # 21.99 H (1.80-7.70) X 10*3/uL Eosinophils # 0 L (0.04-0.35) X 10*3/uL POC Glucose (mg/dL) 134 H 247 H (75-99) mg/dL 11/11/20 11/11/20 Range/Units 06:54 11:28 WBC (4.50-10.00) X 10*3/uL MCHC (32.0-37.0) g/dL Plt Count (140-440) X 10*3/uL MPV (9.5-12.2) fL Immature Gran # (0.00-0.04) X 10*3/uL Neutrophils # (1.80-7.70) X 10*3/uL Eosinophils # (0.04-0.35) X 10*3/uL POC Glucose (mg/dL) 130 H 129 H (75-99) mg/dL Microbiology - Last 24 Hours (Table) 11/09/20 09:21 Gram Stain - Final Sputum Sputum Culture - Final 11/07/20 12:15 Blood Culture - Preliminary Blood No Growth after 72 hours Assessment and Plan Plan: 1 acute bilobar pneumonia involving the left upper and left lower lobe with significant consolidation of the left upper lobe lingular segment in addition to mediastinal lymphadenopathy which could be reactive versus malignant. The patient's left hilar, paratracheal and subcarinal soft tissue density/lymph nodes. Noted on today's evaluation the patient is still on 40% oxygen by nasal cannula. The patient's probably has some fluid in the left lower lobe and left sided infiltrate. There is some interval worsening or development of a right upper lobe pulmonary infiltrates. Legionella urine antigen is negative. Sputum Gram stain and culture is negative. Blood cultures negative. White cell count is at 23. She remains on a combination of Zosyn and Levaquin for now. She is also on steroids. Noted the patient is showing there was improvement clinically compared to yesterday. As stated, may consider bronchoscopy there is no improvement in her condition. Chest x-ray findings are stable. She is still having some leukocytosis. 3 she remains on the same antibiotic coverage with Zosyn and Levaquin. 2 acute COPD exacerbation secondary to above, currently on a combination of bronchodilators and systemic steroids. 3 dyspnea secondary to above 4 acute hypoxic respiratory failure currently on 4 L by nasal cannula 5 history of migraines 6 history of hiatal hernia with acid reflux 7 mild leukocytosis 8 history of weight loss plan Continue DuoNeb nebulized treatments [id number] Continue Zosyn and Levaquin for now The patient is also on IV Solu-Medrol.this will be continued Repeat chest x-ray in the morning Continues to have leukocytosis with negative cultures and persistent infiltration of the left lung along with some infiltration of the right Provide the patient incentive spirometer May consider bronchoscopy and lavage if no improvement in her condition over the next 24 hours. We'll repeat a chest x-ray in a.m. will need to follow up this patient for complete clearing of this pulmonary infiltrates/consolidation. Would also need to follow-up the mediastinal lymph nodes to rule out any potential malignancy.
[2020-11-11 16:47] LABS: Glucose,Whole Blood 157 mg/dL (75-99)
[2020-11-11] MEDS: LEVOFLOXACIN 750 MG TAB PO SCH (17:58)
[2020-11-11 21:24] LABS: Glucose,Whole Blood 187 mg/dL (75-99)
[2020-11-11] MEDS: VENLAFAXINE HCL ER 37.5 MG CAP PO SCH (21:28)
[2020-11-12] MEDS: methylPREDNISolone SOD SUCCI 125 MG/2 ML VIAL IV SCH ×4 (00:13→17:56)
[2020-11-12] MEDS: PIPERACILLIN-TAZOBACTAM 3.375 GM in SODIUM CHLORIDE 0.9% 100 ML IVPB SCH ×3 (00:13→16:06)
[2020-11-12] MEDS: clonazePAM 1 MG TAB PO PRN ×4 (00:13→20:54)
[2020-11-12 07:13] LABS: Glucose,Whole Blood 146 mg/dL (75-99)
[2020-11-12] MEDS: INSULIN ASPART (NovoLOG) 100 UNIT/ML VIAL SQ SCH ×4 (07:16→20:53)
[2020-11-12] MEDS: IPRATROPIUM-ALBUTEROL 3 ML NEB INHALATION SCH ×4 (07:53→20:58)
[2020-11-12] MEDS: MULTIVITAMINS, THERA 1 EACH TAB PO SCH (08:15)
[2020-11-12] MEDS: ATORVASTATIN 10 MG TAB PO SCH (08:16)
[2020-11-12] MEDS: DOCUSATE 100 MG CAP PO SCH (08:16)
[2020-11-12] MEDS: BENZONATATE 100 MG CAP PO SCH ×3 (08:16→20:54)
[2020-11-12] MEDS: oxyCODONE-APAP 7.5-325MG 1 EACH TAB PO PRN ×2 (08:17→16:06)
[2020-11-12] MEDS: ENOXAPARIN 40 MG/0.4 ML SYRINGE SQ SCH (08:18)
--- NOTE | 2020-11-12 09:54 | XR ---
EXAMINATION TYPE: XR chest 2V DATE OF EXAM: 11/12/2020 COMPARISON: 11/11/2020 TECHNIQUE: PA and lateral views submitted. HISTORY: Pneumonia, cough FINDINGS: There is bilateral areas of infiltrate. Small left effusion. No pneumothorax. Heart size stable. Dege nerative changes of the spine. IMPRESSION: 1. Bilateral areas of consolidation compatible with pneumonia. Superimposed or underlying interstitia l pneumonitis in the differential diagnosis.
--- NOTE | 2020-11-12 11:07 | P.PN ---
Subjective Progress Note Date: 11/11/20 Principal diagnosis: Left lower lobe pneumonia Acute COPD exacerbation 60-year-old female history of COPD who states she's had shortness of breath or past 2 weeks is getting worse and refractory to her home medications he also is had nausea vomiting. She's had decreased oral intake she is has some fevers chills sweats also she states. Some chest discomfort due to breathing. No diarrhea. She states she did had the COVID-19 shots with the last one being in the end of July. No other current complaints or modifying factors she is currently somewhat nauseated Workup completed in ED; Sinus tachycardia rate 107. Interval 116 QRS duration 88 QT/QTC 324/432 possible left atrial enlargement evidence a left axis deviation CAT scan of the chest reveals evidence of left upper and lower lobe infiltrate evidence of hilar adenopathy mastectomy ruled out no definitive evidence of PE Laboratory review shows an elevated white blood count of 19.9, hemoglobin of 15.3 and platelet count of 431, sodium 133, potassium 3.7, BUN/creatinine of 8/0.35, AST/ALT elevated at 43/58 Patient is admitted to the hospital for acute exacerbation COPD and aspiration pneumonia with further evaluation of hilar lymphadenopathy 11/08/2020 Patient is currently sitting in the bed. Awake alert but anxious and still complaining of shortness of breath. No fever no chills. A carrasco is being caitlin nued on DuoNeb's, steroids and antibiotics in form of Levaquin and Zosyn. No complaints of nausea vomiting or abdominal pain or diarrhea. No chest pain. Laboratory data showed WBC 19.9 hemoglobin 12.3 and platelets 396 Sodium 140 potassium 4.1 chloride 102 bicarb is 30.7 blood sugar is 160 11/09/2020 Patient is currently lying in the bed awake alert oriented 3. Patient is very anxious and requesting Xanax 2 increase to every 6. Continued on IV salmeterol and DuoNeb's. Patient remains on antibiotics the form of Levaquin and Zosyn. Cultures have been negative so far external laboratory data showed WBC 28.87, hemoglobin 12.7 and platelets 508 Sodium 141 potassium 4.0 chloride 102 BUN 17 and creatinine 0.6 and blood sugar is 202 Urine Legionella antigen is negative. 11/10/2020 Patient is still complaining of shortness of breath. Also complains of cough. No chest pain. Currently requiring oxygen at 4 L via nasal cannula. Patient has been afebrile. Laboratory data showed WBC 23.3 hemoglobin 13.3 and platelets 562 Continue on antibiotics in the form of Levaquin and Zosyn. Repeat chest x-ray showed left lower lobe infiltrate and small effusion stable. There is interval development of right upper lobe infiltrate correlate for pneumonia. Sputum cultures and blood cultures have been negative. Urine Legionella antigen is also negative. 11/11/2020 Patient is currently sitting in the bed. Still complaining of shortness of breath and exertional dyspnea. Cough without much sputum production. Requiring oxygen at 4 L when as a cannula.. Patient is being continued on IV steroids, antibiotics and DuoNeb's. Cultures have been negative. Pulmonary is following. Considering bronchoscopy if she continues to be short of breath. Current medications reviewed. Objective - Vital Signs Vital signs: Vital Signs Temp 98.0 F 11/11/20 14:00 Pulse 86 11/11/20 17:36 Resp 18 11/11/20 14:00 BP 127/76 11/11/20 14:00 Pulse Ox 93 L 11/11/20 14:00 Intake & Output 11/11/20 11/11/20 11/12/20 06:59 18:59 06:59 Other: Voiding Method Toilet # Voids 3 3 - Exam PHYSICAL EXAMINATION: Patient is lying in the bed comfortably, no acute distress, awake alert and oriented. Patient is anxious.. HEENT: Normocephalic. Neck is supple. Pupils reactive. Nostrils clear. Oral cavity is moist. Neck reveals no JVD, carotid bruits, or thyromegaly. CHEST EXAMINATION: Trachea is central. Symmetrical expansion. Left basilar crackles and scattered rhonchi. Nonlabored breathing.. CARDIAC: Normal S1, S2 with no gallops. No murmurs ABDOMEN: Soft. Bowel sounds normal. No organomegaly. No abdominal bruits. Extremities: reveal no edema. No clubbing or cyanosis Neurologically awake, alert, oriented x3 with well-coordinated movements. No focal deficits noted Skin: No rash or skin lesions. Psychiatric: Coperative. Nonsuicidal. Anxious. Musculoskeletal: No joint swelling or deformity. Normal range of motion. - Labs CBC & Chem 7: 11/11/20 06:04 11/10/20 04:26 Labs: Abnormal Lab Results - Last 24 Hours (Table) 11/10/20 11/11/20 11/11/20 Range/Units 20:40 06:04 06:54 WBC 24.30 H (4.50-10.00) X 10*3/uL MCHC 30.7 L (32.0-37.0) g/dL Plt Count 582 H (140-440) X 10*3/uL MPV 9.2 L (9.5-12.2) fL Immature Gran # 0.45 H (0.00-0.04) X 10*3/uL Neutrophils # 21.99 H (1.80-7.70) X 10*3/uL Eosinophils # 0 L (0.04-0.35) X 10*3/uL POC Glucose (mg/dL) 247 H 130 H (75-99) mg/dL 11/11/20 11/11/20 Range/Units 11:28 16:44 WBC (4.50-10.00) X 10*3/uL MCHC (32.0-37.0) g/dL Plt Count (140-440) X 10*3/uL MPV (9.5-12.2) fL Immature Gran # (0.00-0.04) X 10*3/uL Neutrophils # (1.80-7.70) X 10*3/uL Eosinophils # (0.04-0.35) X 10*3/uL POC Glucose (mg/dL) 129 H 157 H (75-99) mg/dL Microbiology - Last 24 Hours (Table) 11/07/20 12:15 Blood Culture - Preliminary Blood No Growth after 96 hours 11/09/20 09:21 Gram Stain - Final Sputum Sputum Culture - Final Assessment and Plan Assessment: 1. Acute hypoxic respiratory failure; multifactorial due to COPD exacerbation/left lower lobe pneumonia and upper lobe consolidation/multifocal pneumonia 2. Sepsis secondary to left lower lobe pneumonia and also significant consolidation of the left upper lobe. 2. Mediastinal lymphadenopathy could be reactive versus management. 2. Possible Aspiration pneumonia; . 3. Acute exacerbation COPD; we will start patient on bronchodilator and steroid nebulizer treatments; IV Solu-Medrol; O2 per nasal cannula keeping SpO2 greater than 88% 4. Transaminitis; possibly medication induced; Zocor will be placed on hold; follow up liver enzymes. 5. Hyperlipidemia; patient takes Zocor 20 mg by mouth daily; we will hold off on statin therapy given elevated liver enzymes; repeat liver enzymes tomorrow with plans to restart therapy if stable 6. Depression/anxiety; continue with home dose of Effexor 37.5 mg daily at bedtime along with Klonopin 1 mg by mouth 3 times a day when necessary DVT prophylaxis; SCDs/subcu Lovenox CODE STATUS; full code Plan: Patient will be continued on IV steroids, DuoNeb's and antibiotics in the form of Zosyn and Levaquin. Patient continues to have leukocytosis and shortness of breath. Encourage incentive my telemetry. Pulmonary is considering b ronchoscopy. Continue to follow closely. Time with Patient: Greater than 30
[2020-11-12 11:39] LABS: Glucose,Whole Blood 124 mg/dL (75-99)
[2020-11-12 11:48] VITALS: BMI 20.9
--- NOTE | 2020-11-12 12:41 | P.PN ---
Subjective Progress Note Date: 11/12/20 60-year-old female patient, coming in for worsening shortness of breath. The patient is known to have COPD. She is a chronic smoker. She is not oxygen dependent. She doesn't use anything for maintenance in regards to her COPD. She had increased dyspnea cough chest tightness and wheezing she came into the hospital and the patient was found to have a pneumonia and COPD exacerbation. Chest x-ray showed a left lower lobe infiltrate. Computed tomography scan of the chest was also done and showed left upper and left lower lobe pulmonary infiltration. There was also evidence of filling defect in the left mainstem bronchus, likely secondary to mucus and secretions. There is also evidence of a left hilar lymph nodes as the patient was found to have left hilar and mediastinal lymphadenopathy and a soft tissue mass in the precarinal space measuring up to 3.6 cm in size and malignancy was obviously a concern. The pulmonary artery branches were suboptimally visualized and no filling defect was seen in the visualized arteries. The patient underwent a white cell count of 19.9 and the pro calcitonin level was at 0.1. A electrodes are within normal limits and the patient is currently on a combination of Zosyn and Levaquin. COVID-19 testing was negative and EKG showed a normal sinus tachycardia without evidence of any acute ischemic changes. 01/10/2021 and seeing the patient for a follow-up. The patient was hospitalized for an extensive left lung pneumonia. She is currently on a combination of Zosyn and Levaquin. Will pro calcitonin level was mildly elevated at 0.10. The patient had a white cell count of 19.9 which is stable compared to the day before. She is on examination Zosyn and Levaquin. Cultures are still pending for now. The blood cultures negative for now. No fever. COVID-19 testing was negative. She remains on 4 L of oxygen by nasal cannula with a pulse ox of 92%. She also has a component of COPD exacerbation. She is on bronchodilators and IV Solu-Medrol. Legionella urine antigen was sent and results are still pending for now. Clinically she is slightly improved. 11/10/2020 the patient is being seen in follow-up regarding her left lower lobe pneumonia. The patient had an extensive left lung pneumonia involving the left upper and left lower lobe. She is on a combination of Zosyn and Levaquin. Repeat chest x-ray was done. Findings of the left lung are rather stable, slightly improved. Nevertheless, the patient developed a new infiltration of the right upper lobe. She is anxious. She is currently on oxygen at 4 L per minute nasal cannula. The white cell count is still elevated at 23. Platelet is at 562. Electrolytes and renal functions are normal. The patient had a progesterone level of 0.1. Mild elevation of the liver function tests. BUN is at extremity with a creatinine of 0.5. Total protein was 5.9 with an albumin of 3.3. Legionella urine antigen came back negative. Sputum Gram stain and culture is negative. Blood cultures also negative. She continues to have a cough. Unable to bring up much sputum. She is afebrile. 11/11/2020, the patient is clinically stable and unchanged. No worsening her rest or status. Chest x-ray showing a stable left lower lobe pulmonary infiltrates/left upper lobe pulmonary infiltrates/pneumonia. Addition to that there is infiltration of the right upper lobe which is stable probably improved compared to yesterday's chest x-ray. She is still on 4 L of oxygen by nasal cannula. She is on examination of Zosyn and Levaquin. Cultures of been all negative. White cell count elevated at 24.3. Hemoglobin is at 15.1. She has underlying COPD. She is on rhonchi dilators speech is on IV Solu-Medrol. Legionella urine and sputum and out to be negative. Sputum Gram stain cultures negative. Blood cultures negative. COVID-19 testing came back also negative. 11/12/2020 I'm seeing the patient for a follow-up. Clinically slightly better compared to yesterday. The chest x-ray still showing stable pulmonary infiltrates with probably some limited improvement in the left lung compared to the earlier chest x-rays. All of the cultures of been negative. She is 4 l by nasal cannula. She remains on a combination of Zosyn and Levaquin. No nausea. No vomiting. No diarrhea. Anxiety remove the base levels remain high and the patient on Klonopin 1 mg every 6 hours and a when necessary basis. He is also on Lovenox for DVT prophylaxis. Family is at the bedside. I met the yesterday and also daughter. Possible bronchoscopy if no improvement. Objective - Vital Signs Vital signs: Vital Signs Temp 98.2 F 11/12/20 07:51 Pulse 64 11/12/20 12:30 Resp 18 11/12/20 07:51 BP 151/84 11/12/20 07:51 Pulse Ox 91 L 11/12/20 07:51 Intake & Output 11/11/20 11/12/20 11/12/20 18:59 06:59 18:59 Weight 58.967 kg Other: Voiding Method Toilet Toilet # Voids 3 3 - Exam GENERAL: The patient is alert and oriented x3, not in any acute distress. Well developed, well nourished. HEENT: Pupils are round and equally reacting to light. EOMI. No scleral icterus. No conjunctival pallor. Normocephalic, atraumatic. No pharyngeal erythema. No thyromegaly. CARDIOVASCULAR: S1 and S2 present. No murmurs, rubs, or gallops. PULMONARY: Chest is clear to auscultation, no wheezing or crackles. ABDOMEN: Soft, nontender, nondistended, normoactive bowel sounds. No palpable organomegaly. MUSCULOSKELETAL: No joint swelling or deformity. EXTREMITIES: No cyanosis, clubbing, or pedal edema. NEUROLOGICAL: Gross neurological examination did not reveal any focal deficits. SKIN: No rashes. - Labs CBC & Chem 7: 11/11/20 06:04 11/10/20 04:26 Labs: Abnormal Lab Results - Last 24 Hours (Table) 11/11/20 11/11/20 11/12/20 Range/Units 16:44 21:22 06:53 POC Glucose (mg/dL) 157 H 187 H 146 H (75-99) mg/dL 11/12/20 Range/Units 11:37 POC Glucose (mg/dL) 124 H (75-99) mg/dL Microbiology - Last 24 Hours (Table) 11/07/20 12:15 Blood Culture - Preliminary Blood No Growth after 96 hours 11/09/20 09:21 Gram Stain - Final Sputum Sputum Culture - Final Assessment and Plan Plan: 1 acute bilobar pneumonia involving the left upper and left lower lobe with s ignificant consolidation of the left upper lobe lingular segment in addition to mediastinal lymphadenopathy which could be reactive versus malignant. The patient's left hilar, paratracheal and subcarinal soft tissue density/lymph nodes. Noted on today's evaluation the patient is still on 4l oxygen by nasal cannula. Chest x-ray still showing limited improvement for the multilobar pneumonia as the patient has also developed a right upper lobe pulmonary infiltrate seen on few of the earlier chest x-rays. Clinically improved however. 2 acute COPD exacerbation secondary to above, currently on a combination of bronchodilators and systemic steroids. 3 dyspnea secondary to above 4 acute hypoxic respiratory failure currently on 4 L by nasal cannula 5 history of migraines 6 history of hiatal hernia with acid reflux 7 mild leukocytosis 8 history of weight loss plan Continue DuoNeb nebulized treatments [id number] Continue Zosyn and Levaquin for now IV Solu-Medrol.this will be continued Repeat chest x-ray in the morning May consider bronchoscopy and lavage if no improvement in her condition over the next 24 hours. We'll repeat a chest x-ray in a.m. will need to follow up this patient for complete clearing of this pulmonary infiltrates/consolidation. Would also need to follow-up the mediastinal lymph nodes to rule out any potential malignancy.
[2020-11-12 13:53] LABS: African American GFR (CKD) 121.9 (60.0-200.0); Albumin 3.1 g/dL (3.80-4.90); Albumin/Globulin Ratio 1.29 (1.60-3.17); Anion Gap 11.4 mmol/L (4.00-12.00); Calcium 9.1 mg/dL (8.7-10.3); Carbon Dioxide 30.6 mmol/L (21.6-31.8); Globulin 2.4 g/dL (1.6-3.3); Non-African American GFR(CKD) 105.2 (60.0-200.0); Potassium 4.2 mmol/L (3.5-5.5); Total Bilirubin 0.2 mg/dL (0.2-1.2); Total Protein 5.5 g/dL (6.2-8.2)
[2020-11-12 15:08] LABS: Basophils # (A) 0.09 X 10*3/uL (0.00-0.10); Basophils % (A) 0.5 %; Eosinophils # (A) 0 X 10*3/uL (0.04-0.35); Eosinophils % (A) 0 %; HCT 40.4 % (37.2-46.3); HGB 12.6 g/dL (12.0-15.0); Lymphocytes # (A) 0.77 X 10*3/uL (0.90-5.00); Lymphocytes % (A) 4.1 %; MCHC 31.2 g/dL (32.0-37.0); MCV 96.2 fL (80.0-97.0); Mean Platelet Volume 9.8 fL (9.5-12.2); Monocytes # (A) 0.53 X 10*3/uL (0.20-1.00); Monocytes % (A) 2.8 %; Neutrophils # (A) 16.73 X 10*3/uL (1.80-7.70); Neutrophils % (A) 89.7 %; Platelet Count 505 X 10*3/uL (140-440); RDW 13.6 % (11.5-14.5); WBC 18.66 X 10*3/uL (4.50-10.00)
[2020-11-12] MEDS: LEVOFLOXACIN 750 MG TAB PO SCH (16:06)
[2020-11-12 16:51] LABS: Glucose,Whole Blood 182 mg/dL (75-99)
[2020-11-12 20:39] LABS: Glucose,Whole Blood 214 mg/dL (75-99)
[2020-11-12] MEDS: VENLAFAXINE HCL ER 37.5 MG CAP PO SCH (20:53)
[2020-11-13] MEDS: oxyCODONE-APAP 7.5-325MG 1 EACH TAB PO PRN ×3 (00:14→16:06)
[2020-11-13] MEDS: methylPREDNISolone SOD SUCCI 125 MG/2 ML VIAL IV SCH ×4 (00:14→17:00)
[2020-11-13] MEDS: PIPERACILLIN-TAZOBACTAM 3.375 GM in SODIUM CHLORIDE 0.9% 100 ML IVPB SCH ×3 (01:40→16:58)
[2020-11-13] MEDS: clonazePAM 1 MG TAB PO PRN ×3 (04:36→18:17)
[2020-11-13 07:22] LABS: Glucose,Whole Blood 134 mg/dL (75-99)
--- NOTE | 2020-11-13 07:25 | XR ---
EXAMINATION TYPE: XR chest 2V DATE OF EXAM: 11/13/2020 COMPARISON: 11/12/2020 HISTORY: Shortness of breath TECHNIQUE: Frontal and lateral views of the chest are obtained. FINDINGS: There are scattered areas of partial airspace opacity particularly in the right upper lobe and left lower lobe unchanged compared to the prior study. The heart size is normal and there is no pulmonary vascular congestion. There is no pleural effusion or pneumothorax. The osseous structures are intact IMPRESSION: No change in the above-described airspace opacities consistent with acute cardiopulmonar y disease most likely an inflammatory process such as pneumonia.
[2020-11-13] MEDS: IPRATROPIUM-ALBUTEROL 3 ML NEB INHALATION SCH ×4 (08:00→20:25)
[2020-11-13] MEDS: MULTIVITAMINS, THERA 1 EACH TAB PO SCH (08:22)
[2020-11-13] MEDS: INSULIN ASPART (NovoLOG) 100 UNIT/ML VIAL SQ SCH ×4 (08:22→23:27)
[2020-11-13] MEDS: ATORVASTATIN 10 MG TAB PO SCH (08:22)
[2020-11-13] MEDS: DOCUSATE 100 MG CAP PO SCH (08:22)
[2020-11-13] MEDS: BENZONATATE 100 MG CAP PO SCH ×3 (08:22→23:26)
[2020-11-13] MEDS: ENOXAPARIN 40 MG/0.4 ML SYRINGE SQ SCH (08:30)
[2020-11-13 11:38] LABS: Glucose,Whole Blood 99 mg/dL (75-99)
[2020-11-13 11:54] LABS: Basophils # (A) 0.04 X 10*3/uL (0.00-0.10); Basophils % (A) 0.2 %; Eosinophils # (A) 0.01 X 10*3/uL (0.04-0.35); Eosinophils % (A) 0 %; HCT 41.9 % (37.2-46.3); Lymphocytes # (A) 0.73 X 10*3/uL (0.90-5.00); Lymphocytes % (A) 3.3 %; MCH 29.1 pg (27.0-32.0); MCV 93.9 fL (80.0-97.0); Mean Platelet Volume 9.1 fL (9.5-12.2); Monocytes # (A) 0.62 X 10*3/uL (0.20-1.00); Monocytes % (A) 2.8 %; Neutrophils # (A) 20.05 X 10*3/uL (1.80-7.70); Neutrophils % (A) 91.1 %; Platelet Count 580 X 10*3/uL (140-440); RBC 4.46 X 10*6/uL (4.10-5.20); RDW 13.5 % (11.5-14.5); WBC 22.02 X 10*3/uL (4.50-10.00)
--- NOTE | 2020-11-13 12:38 | P.PN ---
Subjective Progress Note Date: 11/13/20 60-year-old female patient, coming in for worsening shortness of breath. The patient is known to have COPD. She is a chronic smoker. She is not oxygen dependent. She doesn't use anything for maintenance in regards to her COPD. She had increased dyspnea cough chest tightness and wheezing she came into the hospital and the patient was found to have a pneumonia and COPD exacerbation. Chest x-ray showed a left lower lobe infiltrate. Computed tomography scan of the chest was also done and showed left upper and left lower lobe pulmonary infiltration. There was also evidence of filling defect in the left mainstem bronchus, likely secondary to mucus and secretions. There is also evidence of a left hilar lymph nodes as the patient was found to have left hilar and mediastinal lymphadenopathy and a soft tissue mass in the precarinal space measuring up to 3.6 cm in size and malignancy was obviously a concern. The pulmonary artery branches were suboptimally visualized and no filling defect was seen in the visualized arteries. The patient underwent a white cell count of 19.9 and the pro calcitonin level was at 0.1. A electrodes are within normal limits and the patient is currently on a combination of Zosyn and Levaquin. COVID-19 testing was negative and EKG showed a normal sinus tachycardia without evidence of any acute ischemic changes. 01/10/2021 and seeing the patient for a follow-up. The patient was hospitalized for an extensive left lung pneumonia. She is currently on a combination of Zosyn and Levaquin. Will pro calcitonin level was mildly elevated at 0.10. The patient had a white cell count of 19.9 which is stable compared to the day before. She is on examination Zosyn and Levaquin. Cultures are still pending for now. The blood cultures negative for now. No fever. COVID-19 testing was negative. She remains on 4 L of oxygen by nasal cannula with a pulse ox of 92%. She also has a component of COPD exacerbation. She is on bronchodilators and IV Solu-Medrol. Legionella urine antigen was sent and results are still pending for now. Clinically she is slightly improved. 11/10/2020 the patient is being seen in follow-up regarding her left lower lobe pneumonia. The patient had an extensive left lung pneumonia involving the left upper and left lower lobe. She is on a combination of Zosyn and Levaquin. Repeat chest x-ray was done. Findings of the left lung are rather stable, slightly improved. Nevertheless, the patient developed a new infiltration of the right upper lobe. She is anxious. She is currently on oxygen at 4 L per minute nasal cannula. The white cell count is still elevated at 23. Platelet is at 562. Electrolytes and renal functions are normal. The patient had a progesterone level of 0.1. Mild elevation of the liver function tests. BUN is at extremity with a creatinine of 0.5. Total protein was 5.9 with an albumin of 3.3. Legionella urine antigen came back negative. Sputum Gram stain and culture is negative. Blood cultures also negative. She continues to have a cough. Unable to bring up much sputum. She is afebrile. 11/11/2020, the patient is clinically stable and unchanged. No worsening her rest or status. Chest x-ray showing a stable left lower lobe pulmonary infiltrates/left upper lobe pulmonary infiltrates/pneumonia. Addition to that there is infiltration of the right upper lobe which is stable probably improved compared to yesterday's chest x-ray. She is still on 4 L of oxygen by nasal cannula. She is on examination of Zosyn and Levaquin. Cultures of been all negative. White cell count elevated at 24.3. Hemoglobin is at 15.1. She has underlying COPD. She is on rhonchi dilators speech is on IV Solu-Medrol. Legionella urine and sputum and out to be negative. Sputum Gram stain cultures negative. Blood cultures negative. COVID-19 testing came back also negative. 11/12/2020 I'm seeing the patient for a follow-up. Clinically slightly better compared to yesterday. The chest x-ray still showing stable pulmonary infiltrates with probably some limited improvement in the left lung compared to the earlier chest x-rays. All of the cultures of been negative. She is 4 l by nasal cannula. She remains on a combination of Zosyn and Levaquin. No nausea. No vomiting. No diarrhea. Anxiety remove the base levels remain high and the patient on Klonopin 1 mg every 6 hours and a when necessary basis. He is also on Lovenox for DVT prophylaxis. Family is at the bedside. I met the yesterday and also daughter. Possible bronchoscopy if no improvement. 11/13/2020, clinically improved. The chest x-ray still showing persistent left lower lobe pulmonary infiltrates. Comparing the chest x-ray from the time of admission, the left lower lobe infiltrate hasn't obviously improved. White cell count is at 22. Hemoglobin was at 13. She remains on Zosyn and Levaquin. Cultures of been all negative. She remains on bronchodilators patient remains on steroids. Unable to wean her down under 4 L. Objective - Vital Signs Vital signs: Vital Signs Temp 97.2 F L 11/13/20 08:00 Pulse 63 11/13/20 11:47 Resp 20 11/13/20 08:00 BP 148/78 11/13/20 08:00 Pulse Ox 96 11/13/20 08:00 Intake & Output 11/12/20 11/13/20 11/13/20 18:59 06:59 18:59 Weight 58.967 kg Other: Voiding Method Toilet Toilet Toilet # Voids 3 3 - Exam GENERAL: The patient is alert and oriented x3, not in any acute distress. Well developed, well nourished. HEENT: Pupils are round and equally reacting to light. EOMI. No scleral icterus. No conjunctival pallor. Normocephalic, atraumatic. No pharyngeal erythema. No thyromegaly. CARDIOVASCULAR: S1 and S2 present. No murmurs, rubs, or gallops. PULMONARY: Chest is clear to auscultation, no wheezing or crackles. ABDOMEN: Soft, nontender, nondistended, normoactive bowel sounds. No palpable organomegaly. MUSCULOSKELETAL: No joint swelling or deformity. EXTREMITIES: No cyanosis, clubbing, or pedal edema. NEUROLOGICAL: Gross neurological examination did not reveal any focal deficits. SKIN: No rashes. - Labs CBC & Chem 7: 11/13/20 06:48 11/12/20 05:25 Labs: Abnormal Lab Results - Last 24 Hours (Table) 11/12/20 11/12/20 11/12/20 Range/Units 05:25 05:25 16:49 WBC 18.66 H (4.50-10.00) X 10*3/uL MCHC 31.2 L (32.0-37.0) g/dL Plt Count 505 H (140-440) X 10*3/uL MPV (9.5-12.2) fL Immature Gran # 0.54 H (0.00-0.04) X 10*3/uL Neutrophils # 16.73 H (1.80-7.70) X 10*3/uL Lymphocytes # 0.77 L (0.90-5.00) X 10*3/uL Eosinophils # 0 L (0.04-0.35) X 10*3/uL Creatinine 0.5 L (0.6-1.5) mg/dL BUN/Creatinine Ratio 40.00 H (12.00-20.00) Ratio Glucose 153 H (70-110) mg/dL POC Glucose (mg/dL) 182 H (75-99) mg/dL ALT 92 H (8-44) U/L Total Protein 5.5 L (6.2-8.2) g/dL Albumin 3.10 L (3.80-4.90) g/dL Albumin/Globulin Ratio 1.29 L (1.60-3.17) g/dL 11/12/20 11/13/20 11/13/20 Range/Units 20:37 06:48 07:01 WBC 22.02 H (4.50-10.00) X 10*3/uL MCHC 31.0 L (32.0-37.0) g/dL Plt Count 580 H (140-440) X 10*3/uL MPV 9.1 L (9.5-12.2) fL Immature Gran # 0.57 H (0.00-0.04) X 10*3/uL Neutrophils # 20.05 H (1.80-7.70) X 10*3/uL Lymphocytes # 0.73 L (0.90-5.00) X 10*3/uL Eosinophils # 0.01 L (0.04-0.35) X 10*3/uL Creatinine (0.6-1.5) mg/dL BUN/Creatinine Ratio (12.00-20.00) Ratio Glucose (70-110) mg/dL POC Glucose (mg/dL) 214 H 134 H (75-99) mg/dL ALT (8-44) U/L Total Protein (6.2-8.2) g/dL Albumin (3.80-4.90) g/dL Albumin/Globulin Ratio (1.60-3.17) g/dL Microbiology - Last 24 Hours (Table) 11/07/20 12:15 Blood Culture - Preliminary Blood No Growth after 120 hours Assessment and Plan Plan: 1 acute bilobar pneumonia involving the left upper and left lower lobe with significant consolidation of the left upper lobe lingular segment in addition to mediastinal lymphadenopathy which could be reactive versus malignant. The patient's left hilar, paratracheal and subcarinal soft tissue density/lymph nodes. Noted on today's evaluation the patient is still on 4l oxygen by nasal cannula. Chest x-ray still showing limited improvement for the multilobar pneumonia as the patient has also developed a right upper lobe pulmonary infiltrate seen on few of the earlier chest x-rays. Clinically improved however. 2 acute COPD exacerbation secondary to above, currently on a combination of bronchodilators and systemic steroids. 3 dyspnea secondary to above 4 acute hypoxic respiratory failure currently on 4 L by nasal cannula 5 history of migraines 6 history of hiatal hernia with acid reflux 7 mild leukocytosis 8 history of weight loss plan Continue same treatment. Unable to wean her down under 4 L. In my opinion, the left lower lobe pulmonary infiltrate is improved. Left upper lobe pulmonary infiltrate is improved. There is a right upper lobe pulmonary infiltrates which is essentially stable. She is on bronchodilators and steroids and antibiotics. Cultures were all negative. Using incentive spirometer. Doing deep breathing. May consider bronchoscopy and lavage if no improvement in her condition over the next 24 hours. We'll repeat a chest x-ray in a.m. will need to follow up this patient for complete clearing of this pulmonary infiltrates/consolidation. Would also need to follow-up the mediastinal lymph nodes to rule out any potential malignancy.
[2020-11-13 12:54] LABS: African American GFR (CKD) 121.9 (60.0-200.0); Anion Gap 9.3 mmol/L (4.00-12.00); Calcium 9.1 mg/dL (8.7-10.3); Carbon Dioxide 31.7 mmol/L (21.6-31.8); Non-African American GFR(CKD) 105.2 (60.0-200.0); Potassium 4.4 mmol/L (3.5-5.5)
[2020-11-13 16:20] LABS: Glucose,Whole Blood 229 mg/dL (75-99)
[2020-11-13 22:26] LABS: Glucose,Whole Blood 218 mg/dL (75-99)
[2020-11-13] MEDS: VENLAFAXINE HCL ER 37.5 MG CAP PO SCH (23:27)
[2020-11-14] MEDS: oxyCODONE-APAP 7.5-325MG 1 EACH TAB PO PRN ×3 (00:09→16:48)
[2020-11-14] MEDS: clonazePAM 1 MG TAB PO PRN ×5 (00:09→21:49)
[2020-11-14] MEDS: methylPREDNISolone SOD SUCCI 125 MG/2 ML VIAL IV SCH ×4 (00:09→17:41)
[2020-11-14] MEDS: PIPERACILLIN-TAZOBACTAM 3.375 GM in SODIUM CHLORIDE 0.9% 100 ML IVPB SCH ×3 (00:14→17:03)
[2020-11-14 06:53] LABS: Glucose,Whole Blood 120 mg/dL (75-99)
[2020-11-14] MEDS: INSULIN ASPART (NovoLOG) 100 UNIT/ML VIAL SQ SCH ×4 (07:02→21:18)
[2020-11-14] MEDS: ENOXAPARIN 40 MG/0.4 ML SYRINGE SQ SCH (07:20)
[2020-11-14] MEDS: MULTIVITAMINS, THERA 1 EACH TAB PO SCH (07:20)
[2020-11-14] MEDS: ATORVASTATIN 10 MG TAB PO SCH (07:20)
[2020-11-14] MEDS: BENZONATATE 100 MG CAP PO SCH ×3 (07:20→21:18)
[2020-11-14] MEDS: DOCUSATE 100 MG CAP PO SCH (07:22)
--- NOTE | 2020-11-14 07:22 | XR ---
EXAMINATION TYPE: XR chest 1V portable DATE OF EXAM: 11/14/2020 COMPARISON: 11/14/2019 HISTORY: Abnormal x-ray TECHNIQUE: Single frontal view of the chest is obtained. FINDINGS: There are bilateral areas of infiltrate greater on the left with mild interstitial pattern . No pneumothorax. Heart size stable. Mild arthropathy AC joints. IMPRESSION: Bilateral infiltrate stable correlate for pneumonia otherwise consider CHF.
[2020-11-14] MEDS: IPRATROPIUM-ALBUTEROL 3 ML NEB INHALATION SCH ×4 (08:27→18:18)
[2020-11-14 10:20] LABS: Basophils # (A) 0.11 X 10*3/uL (0.00-0.10); Basophils % (A) 0.5 %; Eosinophils # (A) 0 X 10*3/uL (0.04-0.35); Eosinophils % (A) 0 %; HCT 42.7 % (37.2-46.3); HGB 13.3 g/dL (12.0-15.0); Lymphocytes # (A) 0.82 X 10*3/uL (0.90-5.00); MCH 29.9 pg (27.0-32.0); MCHC 31.1 g/dL (32.0-37.0); Mean Platelet Volume 9.2 fL (9.5-12.2); Monocytes # (A) 0.72 X 10*3/uL (0.20-1.00); Monocytes % (A) 3.5 %; Neutrophils # (A) 18.11 X 10*3/uL (1.80-7.70); Neutrophils % (A) 88.3 %; Platelet Count 511 X 10*3/uL (140-440); RBC 4.45 X 10*6/uL (4.10-5.20); RDW 13.7 % (11.5-14.5); WBC 20.51 X 10*3/uL (4.50-10.00)
[2020-11-14 10:54] LABS: African American GFR (CKD) 114.8 (60.0-200.0); Anion Gap 6.4 mmol/L (4.00-12.00); BUN/Creat Ratio 31.67 Ratio (12.00-20.00); Calcium 9.2 mg/dL (8.7-10.3); Carbon Dioxide 36.6 mmol/L (21.6-31.8); Non-African American GFR(CKD) 99.1 (60.0-200.0); Potassium 4.3 mmol/L (3.5-5.5)
[2020-11-14 11:26] LABS: Glucose,Whole Blood 157 mg/dL (75-99)
--- NOTE | 2020-11-14 12:42 | P.PN ---
Subjective Progress Note Date: 11/14/20 60-year-old female patient, coming in for worsening shortness of breath. The patient is known to have COPD. She is a chronic smoker. She is not oxygen dependent. She doesn't use anything for maintenance in regards to her COPD. She had increased dyspnea cough chest tightness and wheezing she came into the hospital and the patient was found to have a pneumonia and COPD exacerbation. Chest x-ray showed a left lower lobe infiltrate. Computed tomography scan of the chest was also done and showed left upper and left lower lobe pulmonary infiltration. There was also evidence of filling defect in the left mainstem bronchus, likely secondary to mucus and secretions. There is also evidence of a left hilar lymph nodes as the patient was found to have left hilar and mediastinal lymphadenopathy and a soft tissue mass in the precarinal space measuring up to 3.6 cm in size and malignancy was obviously a concern. The pulmonary artery branches were suboptimally visualized and no filling defect was seen in the visualized arteries. The patient underwent a white cell count of 19.9 and the pro calcitonin level was at 0.1. A electrodes are within normal limits and the patient is currently on a combination of Zosyn and Levaquin. COVID-19 testing was negative and EKG showed a normal sinus tachycardia without evidence of any acute ischemic changes. 01/10/2021 and seeing the patient for a follow-up. The patient was hospitalized for an extensive left lung pneumonia. She is currently on a combination of Zosyn and Levaquin. Will pro calcitonin level was mildly elevated at 0.10. The patient had a white cell count of 19.9 which is stable compared to the day before. She is on examination Zosyn and Levaquin. Cultures are still pending for now. The blood cultures negative for now. No fever. COVID-19 testing was negative. She remains on 4 L of oxygen by nasal cannula with a pulse ox of 92%. She also has a component of COPD exacerbation. She is on bronchodilators and IV Solu-Medrol. Legionella urine antigen was sent and results are still pending for now. Clinically she is slightly improved. 11/10/2020 the patient is being seen in follow-up regarding her left lower lobe pneumonia. The patient had an extensive left lung pneumonia involving the left upper and left lower lobe. She is on a combination of Zosyn and Levaquin. Repeat chest x-ray was done. Findings of the left lung are rather stable, slightly improved. Nevertheless, the patient developed a new infiltration of the right upper lobe. She is anxious. She is currently on oxygen at 4 L per minute nasal cannula. The white cell count is still elevated at 23. Platelet is at 562. Electrolytes and renal functions are normal. The patient had a progesterone level of 0.1. Mild elevation of the liver function tests. BUN is at extremity with a creatinine of 0.5. Total protein was 5.9 with an albumin of 3.3. Legionella urine antigen came back negative. Sputum Gram stain and culture is negative. Blood cultures also negative. She continues to have a cough. Unable to bring up much sputum. She is afebrile. 11/11/2020, the patient is clinically stable and unchanged. No worsening her rest or status. Chest x-ray showing a stable left lower lobe pulmonary infiltrates/left upper lobe pulmonary infiltrates/pneumonia. Addition to that there is infiltration of the right upper lobe which is stable probably improved compared to yesterday's chest x-ray. She is still on 4 L of oxygen by nasal cannula. She is on examination of Zosyn and Levaquin. Cultures of been all negative. White cell count elevated at 24.3. Hemoglobin is at 15.1. She has underlying COPD. She is on rhonchi dilators speech is on IV Solu-Medrol. Legionella urine and sputum and out to be negative. Sputum Gram stain cultures negative. Blood cultures negative. COVID-19 testing came back also negative. 11/12/2020 I'm seeing the patient for a follow-up. Clinically slightly better compared to yesterday. The chest x-ray still showing stable pulmonary infiltrates with probably some limited improvement in the left lung compared to the earlier chest x-rays. All of the cultures of been negative. She is 4 l by nasal cannula. She remains on a combination of Zosyn and Levaquin. No nausea. No vomiting. No diarrhea. Anxiety remove the base levels remain high and the patient on Klonopin 1 mg every 6 hours and a when necessary basis. He is also on Lovenox for DVT prophylaxis. Family is at the bedside. I met the yesterday and also daughter. Possible bronchoscopy if no improvement. 11/13/2020, clinically improved. The chest x-ray still showing persistent left lower lobe pulmonary infiltrates. Comparing the chest x-ray from the time of admission, the left lower lobe infiltrate hasn't obviously improved. White cell count is at 22. Hemoglobin was at 13. She remains on Zosyn and Levaquin. Cultures of been all negative. She remains on bronchodilators patient remains on steroids. Unable to wean her down under 4 L. 11/14 2020, clinically the patient is doing better. Less bronchospastic and wheezy. Chest x-ray showing incomplete clearing of the left lung pulmonary infiltrate. He remains on same antibiotic coverage. Pulse ox is up to 95% 40s about 2 by nasal cannula and she is using incentive spirometer. The white cell count remains elevated at 20. The rest of the blood work essentially within normal limits. Hemoglobin is at 13.3. Normal renal function. Objective - Vital Signs Vital signs: Vital Signs Temp 97.9 F 11/14/20 07:42 Pulse 69 11/14/20 08:41 Resp 19 11/14/20 07:42 BP 155/92 11/14/20 07:42 Pulse Ox 93 L 11/14/20 07:42 Intake & Output 11/13/20 11/14/20 11/14/20 18:59 06:59 18:59 Intake Total 100 Balance 100 Intake: Intake, IV Titration 100 Amount Piperacillin-Tazobactam 3 100 .375 gm In Sodium Chloride 0.9% 100 ml @ 25 mls/hr IVPB Q8HR [facility] Rx# :[id number] Other: Voiding Method Toilet Toilet # Voids 3 0 - Exam GENERAL: The patient is alert and oriented x3, not in any acute distress. Well developed, well nourished. HEENT: Pupils are round and equally reacting to light. EOMI. No scleral icterus. No conjunctival pallor. Normocephalic, atraumatic. No pharyngeal erythema. No thyromegaly. CARDIOVASCULAR: S1 and S2 present. No murmurs, rubs, or gallops. PULMONARY: Chest is clear to auscultation, no wheezing or crackles. ABDOMEN: Soft, nontender, nondistended, normoactive bowel sounds. No palpable organomegaly. MUSCULOSKELETAL: No joint swelling or deformity. EXTREMITIES: No cyanosis, clubbing, or pedal edema. NEUROLOGICAL: Gross neurological examination did not reveal any focal deficits. SKIN: No rashes. - Labs CBC & Chem 7: 11/14/20 06:05 11/14/20 06:05 Labs: Abnormal Lab Results - Last 24 Hours (Table) 11/13/20 11/13/20 11/13/20 Range/Units 06:48 16:18 22:11 WBC (4.50-10.00) X 10*3/uL MCHC (32.0-37.0) g/dL Plt Count (140-440) X 10*3/uL MPV (9.5-12.2) fL Immature Gran # (0.00-0.04) X 10*3/uL Neutrophils # (1.80-7.70) X 10*3/uL Lymphocytes # (0.90-5.00) X 10*3/uL Eosinophils # (0.04-0.35) X 10*3/uL Basophils # (0.00-0.10) X 10*3/uL Carbon Dioxide (21.6-31.8) mmol/L Creatinine 0.5 L (0.6-1.5) mg/dL BUN/Creatinine Ratio 44.00 H (12.00-20.00) Ratio Glucose 134 H (70-110) mg/dL POC Glucose (mg/dL) 229 H 218 H (75-99) mg/dL 11/14/20 11/14/20 11/14/20 Range/Units 06:05 06:05 06:52 WBC 20.51 H (4.50-10.00) X 10*3/uL MCHC 31.1 L (32.0-37.0) g/dL Plt Count 511 H (140-440) X 10*3/uL MPV 9.2 L (9.5-12.2) fL Immature Gran # 0.75 H (0.00-0.04) X 10*3/uL Neutrophils # 18.11 H (1.80-7.70) X 10*3/uL Lymphocytes # 0.82 L (0.90-5.00) X 10*3/uL Eosinophils # 0 L (0.04-0.35) X 10*3/uL Basophils # 0.11 H (0.00-0.10) X 10*3/uL Carbon Dioxide 36.6 H (21.6-31.8) mmol/L Creatinine (0.6-1.5) mg/dL BUN/Creatinine Ratio 31.67 H (12.00-20.00) Ratio Glucose 129 H (70-110) mg/dL POC Glucose (mg/dL) 120 H (75-99) mg/dL 11/14/20 Range/Units 11:25 WBC (4.50-10.00) X 10*3/uL MCHC (32.0-37.0) g/dL Plt Count (140-440) X 10*3/uL MPV (9.5-12.2) fL Immature Gran # (0.00-0.04) X 10*3/uL Neutrophils # (1.80-7.70) X 10*3/uL Lymphocytes # (0.90-5.00) X 10*3/uL Eosinophils # (0.04-0.35) X 10*3/uL Basophils # (0.00-0.10) X 10*3/uL Carbon Dioxide (21.6-31.8) mmol/L Creatinine (0.6-1.5) mg/dL BUN/Creatinine Ratio (12.00-20.00) Ratio Glucose (70-110) mg/dL POC Glucose (mg/dL) 157 H (75-99) mg/dL Microbiology - Last 24 Hours (Table) 11/07/20 12:15 Blood Culture - Final Blood No Growth after 144 hours Assessment and Plan Plan: 1 acute bilobar pneumonia involving the left upper and left lower lobe with significant consolidation of the left upper lobe lingular segment in addition to mediastinal lymphadenopathy which could be reactive versus malignant. The patient's left hilar, paratracheal and subcarinal soft tissue density/lymph nodes. Noted on today's evaluation the patient is still on 4l oxygen by nasal cannula. Chest x-ray still showing limited improvement for the multilobar pneumonia as the patient has also developed a right upper lobe pulmonary infiltrate seen on few of the earlier chest x-rays. Clinically improved however. 2 acute COPD exacerbation secondary to above, currently on a combination of bronchodilators and systemic steroids. 3 dyspnea secondary to above 4 acute hypoxic respiratory failure currently on 4 L by nasal cannula 5 history of migraines 6 history of hiatal hernia with acid reflux 7 mild leukocytosis 8 history of weight loss plan Continue same treatment. Weight on oxygen down to 3 L Chest x-ray from today was noted Continue using incentive spirometer Continue bronchodilators and steroids May consider bronchoscopy and lavage if no improvement in her condition over the next 24 hours. We'll repeat a chest x-ray in a.m. will need to follow up this patient for complete clearing of this pulmonary infiltrates/consolidation. Would also need to follow-up the mediastinal lymph nodes to rule out any potential malignancy.
[2020-11-14 16:25] LABS: Glucose,Whole Blood 122 mg/dL (75-99)
[2020-11-14] MEDS: VENLAFAXINE HCL ER 37.5 MG CAP PO SCH (21:17)
[2020-11-14 21:34] LABS: Glucose,Whole Blood 172 mg/dL (75-99)
--- NOTE | 2020-11-14 23:54 | P.PN ---
Subjective Progress Note Date: 11/12/20 Principal diagnosis: Left lower lobe pneumonia Acute COPD exacerbation 60-year-old female history of COPD who states she's had shortness of breath or past 2 weeks is getting worse and refractory to her home medications he also is had nausea vomiting. She's had decreased oral intake she is has some fevers chills sweats also she states. Some chest discomfort due to breathing. No diarrhea. She states she did had the COVID-19 shots with the last one being in the end of July. No other current complaints or modifying factors she is currently somewhat nauseated Workup completed in ED; Sinus tachycardia rate 107. Interval 116 QRS duration 88 QT/QTC 324/432 possible left atrial enlargement evidence a left axis deviation CAT scan of the chest reveals evidence of left upper and lower lobe infiltrate evidence of hilar adenopathy mastectomy ruled out no definitive evidence of PE Laboratory review shows an elevated white blood count of 19.9, hemoglobin of 15.3 and platelet count of 431, sodium 133, potassium 3.7, BUN/creatinine of 8/0.35, AST/ALT elevated at 43/58 Patient is admitted to the hospital for acute exacerbation COPD and aspiration pneumonia with further evaluation of hilar lymphadenopathy 11/08/2020 Patient is currently sitting in the bed. Awake alert but anxious and still complaining of shortness of breath. No fever no chills. A carrasco is being caitlin nued on DuoNeb's, steroids and antibiotics in form of Levaquin and Zosyn. No complaints of nausea vomiting or abdominal pain or diarrhea. No chest pain. Laboratory data showed WBC 19.9 hemoglobin 12.3 and platelets 396 Sodium 140 potassium 4.1 chloride 102 bicarb is 30.7 blood sugar is 160 11/09/2020 Patient is currently lying in the bed awake alert oriented 3. Patient is very anxious and requesting Xanax 2 increase to every 6. Continued on IV salmeterol and DuoNeb's. Patient remains on antibiotics the form of Levaquin and Zosyn. Cultures have been negative so far external laboratory data showed WBC 28.87, hemoglobin 12.7 and platelets 508 Sodium 141 potassium 4.0 chloride 102 BUN 17 and creatinine 0.6 and blood sugar is 202 Urine Legionella antigen is negative. 11/10/2020 Patient is still complaining of shortness of breath. Also complains of cough. No chest pain. Currently requiring oxygen at 4 L via nasal cannula. Patient has been afebrile. Laboratory data showed WBC 23.3 hemoglobin 13.3 and platelets 562 Continue on antibiotics in the form of Levaquin and Zosyn. Repeat chest x-ray showed left lower lobe infiltrate and small effusion stable. There is interval development of right upper lobe infiltrate correlate for pneumonia. Sputum cultures and blood cultures have been negative. Urine Legionella antigen is also negative. 11/11/2020 Patient is currently sitting in the bed. Still complaining of shortness of breath and exertional dyspnea. Cough without much sputum production. Requiring oxygen at 4 L when as a cannula.. Patient is being continued on IV steroids, antibiotics and DuoNeb's. Cultures have been negative. Pulmonary is following. Considering bronchoscopy if she continues to be short of breath. 11/12/2020 Patient is currently sitting on the bed. Breathing status remains the same or slightly better. Chest x-ray showed bilateral areas of consolidation compatible with pneumonia. Superimposed on underlying interstitial pneumonitis in the differential. Laboratory data showed WBC 18.6 hemoglobin 12.6 and platelets 505 BUN 20 and creatinine 0.5 and blood sugar is 153 procalcitonin level 0.04 Patient is being continued on antibiotics involve Anita and Zosyn. Patient denies any complaints of fever or chills. No nausea vomiting or abdominal pain or diarrhea. Patient is requesting Klonopin dose to be increased. Currently every 4 as needed. Current medications reviewed. Objective - Vital Signs Vital signs: Vital Signs Temp 98.4 F 11/12/20 18:58 Pulse 67 11/12/20 21:08 Resp 14 11/12/20 18:58 BP 119/73 11/12/20 18:58 Pulse Ox 94 L 11/12/20 18:58 Intake & Output 11/12/20 11/12/20 11/13/20 06:59 18:59 06:59 Weight 58.967 kg Other: Voiding Method Toilet # Voids 3 3 - Exam PHYSICAL EXAMINATION: Patient is lying in the bed comfortably, no acute distress, awake alert and orie nted. Patient is anxious.. HEENT: Normocephalic. Neck is supple. Pupils reactive. Nostrils clear. Oral cavity is moist. Neck reveals no JVD, carotid bruits, or thyromegaly. CHEST EXAMINATION: Trachea is central. Symmetrical expansion. Left basilar crackles and scattered rhonchi. Nonlabored breathing.. CARDIAC: Normal S1, S2 with no gallops. No murmurs ABDOMEN: Soft. Bowel sounds normal. No organomegaly. No abdominal bruits. Extremities: reveal no edema. No clubbing or cyanosis Neurologically awake, alert, oriented x3 with well-coordinated movements. No focal deficits noted Skin: No rash or skin lesions. Psychiatric: Coperative. Nonsuicidal. Anxious. Musculoskeletal: No joint swelling or deformity. Normal range of motion. - Labs CBC & Chem 7: 11/14/20 06:05 11/14/20 06:05 Labs: Abnormal Lab Results - Last 24 Hours (Table) 11/12/20 11/12/20 11/12/20 Range/Units 05:25 05:25 06:53 WBC 18.66 H (4.50-10.00) X 10*3/uL MCHC 31.2 L (32.0-37.0) g/dL Plt Count 505 H (140-440) X 10*3/uL Immature Gran # 0.54 H (0.00-0.04) X 10*3/uL Neutrophils # 16.73 H (1.80-7.70) X 10*3/uL Lymphocytes # 0.77 L (0.90-5.00) X 10*3/uL Eosinophils # 0 L (0.04-0.35) X 10*3/uL Creatinine 0.5 L (0.6-1.5) mg/dL BUN/Creatinine Ratio 40.00 H (12.00-20.00) Ratio Glucose 153 H (70-110) mg/dL POC Glucose (mg/dL) 146 H (75-99) mg/dL ALT 92 H (8-44) U/L Total Protein 5.5 L (6.2-8.2) g/dL Albumin 3.10 L (3.80-4.90) g/dL Albumin/Globulin Ratio 1.29 L (1.60-3.17) g/dL 11/12/20 11/12/20 11/12/20 Range/Units 11:37 16:49 20:37 WBC (4.50-10.00) X 10*3/uL MCHC (32.0-37.0) g/dL Plt Count (140-440) X 10*3/uL Immature Gran # (0.00-0.04) X 10*3/uL Neutrophils # (1.80-7.70) X 10*3/uL Lymphocytes # (0.90-5.00) X 10*3/uL Eosinophils # (0.04-0.35) X 10*3/uL Creatinine (0.6-1.5) mg/dL BUN/Creatinine Ratio (12.00-20.00) Ratio Glucose (70-110) mg/dL POC Glucose (mg/dL) 124 H 182 H 214 H (75-99) mg/dL ALT (8-44) U/L Total Protein (6.2-8.2) g/dL Albumin (3.80-4.90) g/dL Albumin/Globulin Ratio (1.60-3.17) g/dL Microbiology - Last 24 Hours (Table) 11/07/20 12:15 Blood Culture - Preliminary Blood No Growth after 120 hours Assessment and Plan Assessment: 1. Acute hypoxic respiratory failure; multifactorial due to COPD exacerbation /left lower lobe pneumonia and upper lobe consolidation/multifocal pneumonia 2. Sepsis secondary to left lower lobe pneumonia and also significant consolidation of the left upper lobe. 2. Mediastinal lymphadenopathy could be reactive versus management. 2. Possible Aspiration pneumonia; . 3. Acute exacerbation COPD; we will start patient on bronchodilator and steroid nebulizer treatments; IV Solu-Medrol; O2 per nasal cannula keeping SpO2 greater than 88% 4. Transaminitis; possibly medication induced; Zocor will be placed on hold; follow up liver enzymes. 5. Hyperlipidemia; patient takes Zocor 20 mg by mouth daily; we will hold off on statin therapy given elevated liver enzymes; repeat liver enzymes tomorrow with plans to restart therapy if stable 6. Depression/anxiety; continue with home dose of Effexor 37.5 mg daily at bedtime along with Klonopin 1 mg by mouth 3 times a day when necessary DVT prophylaxis; SCDs/subcu Lovenox CODE STATUS; full code Plan: Patient will be continued on IV steroids, DuoNeb's and antibiotics in the form of Zosyn and Levaquin. Patient continues to have leukocytosis and shortness of breath. Encourage incentive my telemetry. Pulmonary is considering bronchoscopy. Continue to follow closely. Time with Patient: Greater than 30
--- NOTE | 2020-11-14 23:56 | P.PN ---
Subjective Progress Note Date: 11/13/20 Principal diagnosis: Left lower lobe pneumonia Acute COPD exacerbation 60-year-old female history of COPD who states she's had shortness of breath or past 2 weeks is getting worse and refractory to her home medications he also is had nausea vomiting. She's had decreased oral intake she is has some fevers chills sweats also she states. Some chest discomfort due to breathing. No diarrhea. She states she did had the COVID-19 shots with the last one being in the end of July. No other current complaints or modifying factors she is currently somewhat nauseated Workup completed in ED; Sinus tachycardia rate 107. Interval 116 QRS duration 88 QT/QTC 324/432 possible left atrial enlargement evidence a left axis deviation CAT scan of the chest reveals evidence of left upper and lower lobe infiltrate evidence of hilar adenopathy mastectomy ruled out no definitive evidence of PE Laboratory review shows an elevated white blood count of 19.9, hemoglobin of 15.3 and platelet count of 431, sodium 133, potassium 3.7, BUN/creatinine of 8/0.35, AST/ALT elevated at 43/58 Patient is admitted to the hospital for acute exacerbation COPD and aspiration pneumonia with further evaluation of hilar lymphadenopathy 11/08/2020 Patient is currently sitting in the bed. Awake alert but anxious and still complaining of shortness of breath. No fever no chills. A carrasco is being caitlin nued on DuoNeb's, steroids and antibiotics in form of Levaquin and Zosyn. No complaints of nausea vomiting or abdominal pain or diarrhea. No chest pain. Laboratory data showed WBC 19.9 hemoglobin 12.3 and platelets 396 Sodium 140 potassium 4.1 chloride 102 bicarb is 30.7 blood sugar is 160 11/09/2020 Patient is currently lying in the bed awake alert oriented 3. Patient is very anxious and requesting Xanax 2 increase to every 6. Continued on IV salmeterol and DuoNeb's. Patient remains on antibiotics the form of Levaquin and Zosyn. Cultures have been negative so far external laboratory data showed WBC 28.87, hemoglobin 12.7 and platelets 508 Sodium 141 potassium 4.0 chloride 102 BUN 17 and creatinine 0.6 and blood sugar is 202 Urine Legionella antigen is negative. 11/10/2020 Patient is still complaining of shortness of breath. Also complains of cough. No chest pain. Currently requiring oxygen at 4 L via nasal cannula. Patient has been afebrile. Laboratory data showed WBC 23.3 hemoglobin 13.3 and platelets 562 Continue on antibiotics in the form of Levaquin and Zosyn. Repeat chest x-ray showed left lower lobe infiltrate and small effusion stable. There is interval development of right upper lobe infiltrate correlate for pneumonia. Sputum cultures and blood cultures have been negative. Urine Legionella antigen is also negative. 11/11/2020 Patient is currently sitting in the bed. Still complaining of shortness of breath and exertional dyspnea. Cough without much sputum production. Requiring oxygen at 4 L when as a cannula.. Patient is being continued on IV steroids, antibiotics and DuoNeb's. Cultures have been negative. Pulmonary is following. Considering bronchoscopy if she continues to be short of breath. 11/12/2020 Patient is currently sitting on the bed. Breathing status remains the same or slightly better. Chest x-ray showed bilateral areas of consolidation compatible with pneumonia. Superimposed on underlying interstitial pneumonitis in the differential. Laboratory data showed WBC 18.6 hemoglobin 12.6 and platelets 505 BUN 20 and creatinine 0.5 and blood sugar is 153 procalcitonin level 0.04 Patient is being continued on antibiotics involve Anita and Zosyn. Patient denies any complaints of fever or chills. No nausea vomiting or abdominal pain or diarrhea. Patient is requesting Klonopin dose to be increased. Currently every 4 as needed. 11/13/2020 Patient's breathing status is improving. No complaints of chest pain. Patient is still anxious and wants to increase the dose of Klonopin. Chest x-ray today showed no change in the airspace opacities consistent with acute cardiopulmonary disease most likely an inflammatory process such as pneumonia. Patient has been afebrile. No chest pain. No headache or dizziness. No chills. Laboratory showed WBC 22.02 hemoglobin 13.0 and platelets 580 BUN 22 and creatinine 0.5 Patient remains on antibiotics in the home of Levaquin and Zosyn. Current medications reviewed. Objective - Vital Signs Vital signs: Vital Signs Temp 97.6 F 11/13/20 13:59 Pulse 66 11/13/20 20:35 Resp 18 11/13/20 20:00 BP 113/71 11/13/20 13:59 Pulse Ox 96 11/13/20 13:59 Intake & Output 11/13/20 11/13/20 11/14/20 06:59 18:59 06:59 Other: Voiding Method Toilet Toilet Toilet # Voids 3 3 3 - Exam PHYSICAL EXAMINATION: Patient is lying in the bed comfortably, no acute distress, awake alert and oriented. Patient is anxious.. HEENT: Normocephalic. Neck is supple. Pupils reactive. Nostrils clear. Oral cavity is moist. Neck reveals no JVD, carotid bruits, or thyromegaly. CHEST EXAMINATION: Trachea is central. Symmetrical expansion. Left basilar crackles and scattered rhonchi. Nonlabored breathing.. CARDIAC: Normal S1, S2 with no gallops. No murmurs ABDOMEN: Soft. Bowel sounds normal. No organomegaly. No abdominal bruits. Extremities: reveal no edema. No clubbing or cyanosis Neurologically awake, alert, oriented x3 with well-coordinated movements. No focal deficits noted Skin: No rash or skin lesions. Psychiatric: Coperative. Nonsuicidal. Anxious. Musculoskeletal: No joint swelling or deformity. Normal range of motion. - Labs CBC & Chem 7: 11/14/20 06:05 11/14/20 06:05 Labs: Abnormal Lab Results - Last 24 Hours (Table) 11/13/20 11/13/20 11/13/20 Range/Units 06:48 06:48 07:01 WBC 22.02 H (4.50-10.00) X 10*3/uL MCHC 31.0 L (32.0-37.0) g/dL Plt Count 580 H (140-440) X 10*3/uL MPV 9.1 L (9.5-12.2) fL Immature Gran # 0.57 H (0.00-0.04) X 10*3/uL Neutrophils # 20.05 H (1.80-7.70) X 10*3/uL Lymphocytes # 0.73 L (0.90-5.00) X 10*3/uL Eosinophils # 0.01 L (0.04-0.35) X 10*3/uL Creatinine 0.5 L (0.6-1.5) mg/dL BUN/Creatinine Ratio 44.00 H (12.00-20.00) Ratio Glucose 134 H (70-110) mg/dL POC Glucose (mg/dL) 134 H (75-99) mg/dL 11/13/20 Range/Units 16:18 WBC (4.50-10.00) X 10*3/uL MCHC (32.0-37.0) g/dL Plt Count (140-440) X 10*3/uL MPV (9.5-12.2) fL Immature Gran # (0.00-0.04) X 10*3/uL Neutrophils # (1.80-7.70) X 10*3/uL Lymphocytes # (0.90-5.00) X 10*3/uL Eosinophils # (0.04-0.35) X 10*3/uL Creatinine (0.6-1.5) mg/dL BUN/Creatinine Ratio (12.00-20.00) Ratio Glucose (70-110) mg/dL POC Glucose (mg/dL) 229 H (75-99) mg/dL Microbiology - Last 24 Hours (Table) 11/07/20 12:15 Blood Culture - Final Blood No Growth after 144 hours Assessment and Plan Assessment: 1. Acute hypoxic respiratory failure; multifactorial due to COPD exacerbation/left lower lobe pneumonia and upper lobe consolidation/multifocal pneumonia 2. Sepsis secondary to left lower lobe pneumonia and also significant co nsolidation of the left upper lobe. 2. Mediastinal lymphadenopathy could be reactive versus management. 2. Possible Aspiration pneumonia; . 3. Acute exacerbation COPD; we will start patient on bronchodilator and steroid nebulizer treatments; IV Solu-Medrol; O2 per nasal cannula keeping SpO2 greater than 88% 4. Transaminitis; possibly medication induced; Zocor will be placed on hold; follow up liver enzymes. 5. Hyperlipidemia; patient takes Zocor 20 mg by mouth daily; we will hold off o n statin therapy given elevated liver enzymes; repeat liver enzymes tomorrow with plans to restart therapy if stable 6. Depression/anxiety; continue with home dose of Effexor 37.5 mg daily at bedtime along with Klonopin 1 mg by mouth 3 times a day when necessary DVT prophylaxis; SCDs/subcu Lovenox CODE STATUS; full code Plan: Patient will be continued on IV steroids, DuoNeb's and antibiotics in the form of Zosyn and Levaquin. Patient continues to have leukocytosis and shortness of breath. Encourage incentive my telemetry. Pulmonary is considering bronchoscopy. Continue to follow closely.
--- NOTE | 2020-11-14 23:57 | P.PN ---
Subjective Progress Note Date: 11/14/20 Principal diagnosis: Left lower lobe pneumonia Acute COPD exacerbation 60-year-old female history of COPD who states she's had shortness of breath or past 2 weeks is getting worse and refractory to her home medications he also is had nausea vomiting. She's had decreased oral intake she is has some fevers chills sweats also she states. Some chest discomfort due to breathing. No diarrhea. She states she did had the COVID-19 shots with the last one being in the end of July. No other current complaints or modifying factors she is currently somewhat nauseated Workup completed in ED; Sinus tachycardia rate 107. Interval 116 QRS duration 88 QT/QTC 324/432 possible left atrial enlargement evidence a left axis deviation CAT scan of the chest reveals evidence of left upper and lower lobe infiltrate evidence of hilar adenopathy mastectomy ruled out no definitive evidence of PE Laboratory review shows an elevated white blood count of 19.9, hemoglobin of 15.3 and platelet count of 431, sodium 133, potassium 3.7, BUN/creatinine of 8/0.35, AST/ALT elevated at 43/58 Patient is admitted to the hospital for acute exacerbation COPD and aspiration pneumonia with further evaluation of hilar lymphadenopathy 11/08/2020 Patient is currently sitting in the bed. Awake alert but anxious and still complaining of shortness of breath. No fever no chills. A carrasco is being caitlin nued on DuoNeb's, steroids and antibiotics in form of Levaquin and Zosyn. No complaints of nausea vomiting or abdominal pain or diarrhea. No chest pain. Laboratory data showed WBC 19.9 hemoglobin 12.3 and platelets 396 Sodium 140 potassium 4.1 chloride 102 bicarb is 30.7 blood sugar is 160 11/09/2020 Patient is currently lying in the bed awake alert oriented 3. Patient is very anxious and requesting Xanax 2 increase to every 6. Continued on IV salmeterol and DuoNeb's. Patient remains on antibiotics the form of Levaquin and Zosyn. Cultures have been negative so far external laboratory data showed WBC 28.87, hemoglobin 12.7 and platelets 508 Sodium 141 potassium 4.0 chloride 102 BUN 17 and creatinine 0.6 and blood sugar is 202 Urine Legionella antigen is negative. 11/10/2020 Patient is still complaining of shortness of breath. Also complains of cough. No chest pain. Currently requiring oxygen at 4 L via nasal cannula. Patient has been afebrile. Laboratory data showed WBC 23.3 hemoglobin 13.3 and platelets 562 Continue on antibiotics in the form of Levaquin and Zosyn. Repeat chest x-ray showed left lower lobe infiltrate and small effusion stable. There is interval development of right upper lobe infiltrate correlate for pneumonia. Sputum cultures and blood cultures have been negative. Urine Legionella antigen is also negative. 11/11/2020 Patient is currently sitting in the bed. Still complaining of shortness of breath and exertional dyspnea. Cough without much sputum production. Requiring oxygen at 4 L when as a cannula.. Patient is being continued on IV steroids, antibiotics and DuoNeb's. Cultures have been negative. Pulmonary is following. Considering bronchoscopy if she continues to be short of breath. 11/12/2020 Patient is currently sitting on the bed. Breathing status remains the same or slightly better. Chest x-ray showed bilateral areas of consolidation compatible with pneumonia. Superimposed on underlying interstitial pneumonitis in the differential. Laboratory data showed WBC 18.6 hemoglobin 12.6 and platelets 505 BUN 20 and creatinine 0.5 and blood sugar is 153 procalcitonin level 0.04 Patient is being continued on antibiotics involve Anita and Zosyn. Patient denies any complaints of fever or chills. No nausea vomiting or abdominal pain or diarrhea. Patient is requesting Klonopin dose to be increased. Currently every 4 as needed. 11/13/2020 Patient's breathing status is improving. No complaints of chest pain. Patient is still anxious and wants to increase the dose of Klonopin. Chest x-ray today showed no change in the airspace opacities consistent with acute cardiopulmonary disease most likely an inflammatory process such as pneumonia. Patient has been afebrile. No chest pain. No headache or dizziness. No chills. Laboratory showed WBC 22.02 hemoglobin 13.0 and platelets 580 BUN 22 and creatinine 0.5 Patient remains on antibiotics in the home of Levaquin and Zosyn. 11/14/2020 Patient currently sitting in the bed comfortably. Awake alert oriented x3. Breathing status is stable. Chest x-ray showed bilateral infiltrates stable. Patient remains on antibiotics in the form of Levaquin and Zosyn. Patient has been afebrile. Laboratory data showed WBC 20.5 hemoglobin 13.3 and platelets 411 BUN 19 and creatinine 0.6 and blood sugar is 129. Patient states that she is very anxious want to increase dose of Klonopin. She is already on 1 mg every 4 as needed. Current medications reviewed. Objective - Vital Signs Vital signs: Vital Signs Temp 97.9 F 11/14/20 14:00 Pulse 82 11/14/20 18:28 Resp 18 11/14/20 15:27 BP 109/62 11/14/20 14:00 Pulse Ox 95 11/14/20 15:14 Intake & Output 11/14/20 11/14/20 11/15/20 06:59 18:59 06:59 Intake Total 100 Balance 100 Intake: Intake, IV Titration 100 Amount Piperacillin-Tazobactam 3 100 .375 gm In Sodium Chloride 0.9% 100 ml @ 25 mls/hr IVPB Q8HR [facility] Rx# :[id number] Other: Voiding Method Toilet # Voids 0 3 - Exam PHYSICAL EXAMINATION: Patient is lying in the bed comfortably, no acute distress, awake alert and oriented. Patient is anxious.. HEENT: Normocephalic. Neck is supple. Pupils reactive. Nostrils clear. Oral cavity is moist. Neck reveals no JVD, carotid bruits, or thyromegaly. CHEST EXAMINATION: Trachea is central. Symmetrical expansion. Left basilar crackles and scattered rhonchi. Nonlabored breathing.. CARDIAC: Normal S1, S2 with no gallops. No murmurs ABDOMEN: Soft. Bowel sounds normal. No organomegaly. No abdominal bruits. Extremities: reveal no edema. No clubbing or cyanosis Neurologically awake, alert, oriented x3 with well-coordinated movements. No focal deficits noted Skin: No rash or skin lesions. Psychiatric: Coperative. Nonsuicidal. Anxious. Musculoskeletal: No joint swelling or deformity. Normal range of motion. - Labs CBC & Chem 7: 11/14/20 06:05 11/14/20 06:05 Labs: Abnormal Lab Results - Last 24 Hours (Table) 11/13/20 11/14/20 11/14/20 Range/Units 22:11 06:05 06:05 WBC 20.51 H (4.50-10.00) X 10*3/uL MCHC 31.1 L (32.0-37.0) g/dL Plt Count 511 H (140-440) X 10*3/uL MPV 9.2 L (9.5-12.2) fL Immature Gran # 0.75 H (0.00-0.04) X 10*3/uL Neutrophils # 18.11 H (1.80-7.70) X 10*3/uL Lymphocytes # 0.82 L (0.90-5.00) X 10*3/uL Eosinophils # 0 L (0.04-0.35) X 10*3/uL Basophils # 0.11 H (0.00-0.10) X 10*3/uL Carbon Dioxide 36.6 H (21.6-31.8) mmol/L BUN/Creatinine Ratio 31.67 H (12.00-20.00) Ratio Glucose 129 H (70-110) mg/dL POC Glucose (mg/dL) 218 H (75-99) mg/dL 11/14/20 11/14/20 11/14/20 Range/Units 06:52 11:25 16:23 WBC (4.50-10.00) X 10*3/uL MCHC (32.0-37.0) g/dL Plt Count (140-440) X 10*3/uL MPV (9.5-12.2) fL Immature Gran # (0.00-0.04) X 10*3/uL Neutrophils # (1.80-7.70) X 10*3/uL Lymphocytes # (0.90-5.00) X 10*3/uL Eosinophils # (0.04-0.35) X 10*3/uL Basophils # (0.00-0.10) X 10*3/uL Carbon Dioxide (21.6-31.8) mmol/L BUN/Creatinine Ratio (12.00-20.00) Ratio Glucose (70-110) mg/dL POC Glucose (mg/dL) 120 H 157 H 122 H (75-99) mg/dL 11/14/20 Range/Units 21:20 WBC (4.50-10.00) X 10*3/uL MCHC (32.0-37.0) g/dL Plt Count (140-440) X 10*3/uL MPV (9.5-12.2) fL Immature Gran # (0.00-0.04) X 10*3/uL Neutrophils # (1.80-7.70) X 10*3/uL Lymphocytes # (0.90-5.00) X 10*3/uL Eosinophils # (0.04-0.35) X 10*3/uL Basophils # (0.00-0.10) X 10*3/uL Carbon Dioxide (21.6-31.8) mmol/L BUN/Creatinine Ratio (12.00-20.00) Ratio Glucose (70-110) mg/dL POC Glucose (mg/dL) 172 H (75-99) mg/dL Assessment and Plan Assessment: 1. Acute hypoxic respiratory failure; multifactorial due to COPD exacerbation/left lower lobe pneumonia and upper lobe consolidation/multifocal pneumonia 2. Sepsis secondary to left lower lobe pneumonia and also significant consolidation of the left upper lobe. 2. Mediastinal lymphadenopathy could be reactive versus management. 2. Possible Aspiration pneumonia; . 3. Acute exacerbation COPD; we will start patient on bronchodilator and steroid nebulizer treatments; IV Solu-Medrol; O2 per nasal cannula keeping SpO2 greater than 88% 4. Transaminitis; possibly medication induced; Zocor will be placed on hold; follow up liver enzymes. 5. Hyperlipidemia; patient takes Zocor 20 mg by mouth daily; we will hold off on statin therapy given elevated liver enzymes; repeat liver enzymes tomorrow with plans to restart therapy if stable 6. Depression/anxiety; continue with home dose of Effexor 37.5 mg daily at bedtime along with Klonopin 1 mg by mouth 3 times a day when necessary DVT prophylaxis; SCDs/subcu Lovenox CODE STATUS; full code Plan: Patient will be continued on IV steroids, DuoNeb's and antibiotics in the form of Zosyn and Levaquin. Patient continues to have leukocytosis and shortness of breath. Encourage incentive my telemetry. Pulmonary is considering bronchoscopy. Continue to follow closely. Time with Patient: Greater than 30
[2020-11-15] MEDS: methylPREDNISolone SOD SUCCI 125 MG/2 ML VIAL IV SCH ×2 (00:10→06:59)
[2020-11-15] MEDS: oxyCODONE-APAP 7.5-325MG 1 EACH TAB PO PRN ×4 (01:38→23:53)
[2020-11-15] MEDS: clonazePAM 1 MG TAB PO PRN ×5 (01:40→21:57)
[2020-11-15 07:07] LABS: Glucose,Whole Blood 136 mg/dL (75-99)
[2020-11-15] MEDS: INSULIN ASPART (NovoLOG) 100 UNIT/ML VIAL SQ SCH ×4 (07:09→21:58)
[2020-11-15] MEDS: MULTIVITAMINS, THERA 1 EACH TAB PO SCH (07:18)
[2020-11-15] MEDS: ATORVASTATIN 10 MG TAB PO SCH (07:18)
[2020-11-15] MEDS: BENZONATATE 100 MG CAP PO SCH ×2 (07:18→16:32)
[2020-11-15] MEDS: ENOXAPARIN 40 MG/0.4 ML SYRINGE SQ SCH (07:18)
[2020-11-15] MEDS: DOCUSATE 100 MG CAP PO SCH (07:18)
[2020-11-15] MEDS: IPRATROPIUM-ALBUTEROL 3 ML NEB INHALATION SCH ×4 (08:52→19:45)
--- NOTE | 2020-11-15 09:08 | XR ---
EXAMINATION TYPE: XR chest 2V DATE OF EXAM: 11/15/2020 COMPARISON: 11/14/2020 TECHNIQUE: PA and lateral views submitted. HISTORY: Cough FINDINGS: There are patchy bilateral areas of infiltrate greater on the left. No interstitial edema or pneumoth orax. No pleural effusion. Heart size stable. IMPRESSION: 1. Patchy areas of bilateral infiltrate are stable greater on the left.
[2020-11-15] MEDS ORDERED: FLUCONAZOLE 100 MG TAB PO ONE (10:33)
[2020-11-15 12:12] LABS: Glucose,Whole Blood 117 mg/dL (75-99)
--- NOTE | 2020-11-15 12:47 | P.PN ---
Subjective Progress Note Date: 11/15/20 Principal diagnosis: Bilateral pneumonia On 11/15/2020 patient seen in follow-up on medical surgical floor. She is awake and alert, oriented 3, she said not in bed, appears to be in no acute distress, she is currently on 3 L of oxygen with a pulse ox of 97%, breathing comfortably, denies any chest discomfort. Her chest x-ray from this morning showing patchy areas of bilateral infiltrate, stable compared to yesterday's chest x-ray but overall improved over the course of her hospital stay. Patient has 0.9 normal saline infusing at 20 ML per hour, she denies any hemoptysis, denies any chest discomfort. Sounds last bronchospastic and dyspneic on today's exam, she remains on Diflucan. Her blood and sputum cultures have been negative. She has completed 6 days of Zosyn. She has also received several doses Of Levaquin. She remains on nebulized bronchodilators, she is on IV steroids at 40 mg every 8 hours. No new labs today, yesterday's labs have been reviewed. Objective - Vital Signs Vital signs: Vital Signs Temp 97.9 F 11/15/20 08:00 Pulse 72 11/15/20 12:28 Resp 20 11/15/20 08:00 BP 132/76 11/15/20 08:00 Pulse Ox 97 11/15/20 08:54 Intake & Output 11/14/20 11/15/20 11/15/20 18:59 06:59 18:59 Intake Total 240 Balance 240 Intake: Oral 240 Other: Voiding Method Toilet Toilet # Voids 3 - Exam GENERAL EXAM: Alert, 60-year-old white female, on 3 L of oxygen and the pulse ox of 97% comfortable in no apparent distress. HEAD: Normocephalic/atraumatic. EYES: Normal reaction of pupils, equal size. Conjunctiva pink, sclera white. NOSE: Clear with pink turbinates. THROAT: No erythema or exudates. NECK: No masses, no JVD, no thyroid enlargement, no adenopathy. CHEST: No chest wall deformity. Symmetrical expansion. LUNGS: Equal air entry with minimal wheezes, some scattered rhonchi CVS: Regular rate and rhythm, normal S1 and S2, no gallops, no murmurs, no rubs ABDOMEN: Soft, nontender. No hepatosplenomegaly, normal bowel sounds, no guarding or rigidity. EXTREMITIES: No clubbing, no edema, no cyanosis, 2+ pulses and upper and lower extremities. MUSCULOSKELETAL: Muscle strength and tone normal. SPINE: No scoliosis or deformity SKIN: No rashes CENTRAL NERVOUS SYSTEM: Alert and oriented -3. No focal deficits, tone is normal in all 4 extremities. PSYCHIATRIC: Alert and oriented -3. Appropriate affect. Intact judgment and insight. - Labs CBC & Chem 7: 11/14/20 06:05 11/14/20 06:05 Labs: Abnormal Lab Results - Last 24 Hours (Table) 11/14/20 11/14/20 11/15/20 Range/Units 16:23 21:20 07:06 POC Glucose (mg/dL) 122 H 172 H 136 H (75-99) mg/dL 11/15/20 Range/Units 12:11 POC Glucose (mg/dL) 117 H (75-99) mg/dL Assessment and Plan Plan: Assessment: #1. Acute bilobar pneumonia, involving the left upper and left lower lobe with significant consolidation of the left upper lobe lingular segment and mediastinal lymphadenopathy which could be reactive versus malignant. Blood and sputum cultures have been negative thus far, patient has been treated with a combination of Levaquin, and Zosyn. She is currently on Diflucan. She has completed her antibiotics, she is clinically improving. #2. Acute exacerbation of COPD #3. Dyspnea related to the above #4. Acute hypoxic respiratory failure, currently down to 3 L of oxygen, improving #5. History of migraines #6. History of hiatal hernia with acid reflux #7. Leukocytosis #8. History of weight loss Plan: Follow-up chest x-rays have been reviewed Chest x-rays is improving Clinically patient is improving Continue weaning FiO2 Continue IV steroids and breathing treatments Increase activity as tolerated No plans for bronchoscopy at this time We'll continue medical management I performed a history & physical examination of the patient and discussed their management with my nurse practitioner, Martha Moyer. I reviewed the nurse practitioner's note and agree with the documented findings and plan of care. Lung sounds are positive for mild diffuse wheezes throughout the lung nick. The findings and the impression was discussed with the patient. I attest to the documentation by the nurse practitioner. Time with Patient: Less than 30
[2020-11-15] MEDS: methylPREDNISolone SOD SUCCI 40 MG/ML 1 ML VIAL IV SCH ×2 (16:32→23:53)
[2020-11-15] MEDS: BENZOCAINE/MENTHOL LOZENG 1 EACH LOZENGE MUCOUS MEM PRN ×2 (16:32→21:57)
[2020-11-15 17:25] LABS: Glucose,Whole Blood 98 mg/dL (75-99)
--- NOTE | 2020-11-15 18:10 | P.PN ---
Progress Note - Text Progress Note Date: 11/15/20 History of presenting complaint 60-year-old female, follows with Dr. Power. history of COPD who states she's had shortness of breath or past 2 weeks is getting worse and refractory to her home medications he also is had nausea vomiting. She's had decreased oral intake she is has some fevers chills sweats also she states. Some chest discomfort due to breathing. No diarrhea. She states she did had the COVID-19 shots with the last one being in the end of July. No other current complaints or modifying factors she is currently somewhat nauseated Workup completed in ED; Sinus tachycardia rate 107. Interval 116 QRS duration 88 QT/QTC 324/432 possible left atrial enlargement evidence a left axis deviation CAT scan of the chest reveals evidence of left upper and lower lobe infiltrate evidence of hilar adenopathy mastectomy ruled out no definitive evidence of PE Laboratory review shows an elevated white blood count of 19.9, hemoglobin of 15.3 and platelet count of 431, sodium 133, potassium 3.7, BUN/creatinine of 8/0.35, AST/ALT elevated at 43/58 Patient is admitted to the hospital for acute exacerbation COPD and aspiration pneumonia with further evaluation of hilar lymphadenopathy November 2: Sitting up in bed. Good oral intake. Dry cough. Breathing better. No bowel movement for 4 days. Review of systems: Was done for constitutional, cardiovascular, GI, pulmonary. relevant finding as above Active Medications Acetaminophen (Acetaminophen Tab 325 Mg Tab) 650 mg PO Q4HR PRN PRN Reason: Fever and/ or Pain Last Admin: 11/11/20 10:23 Dose: 650 mg Documented by: Albuterol/Ipratropium (Ipratropium-Albuterol 3 Ml Neb) 3 ml INHALATION RT-Q4H P RN PRN Reason: shortness of breath Last Admin: 11/09/20 09:16 Dose: 3 ml Documented by: Albuterol/Ipratropium (Ipratropium-Albuterol 3 Ml Neb) 3 ml INHALATION RT-QID LYNDON Last Admin: 11/15/20 16:00 Dose: 3 ml Documented by: Atorvastatin Calcium (Atorvastatin 10 Mg Tab) 10 mg PO DAILY [facility] Last Admin: 11/15/20 07:18 Dose: 10 mg Documented by: Benzocaine/Menthol (Benzocaine/Menthol Lozeng 1 Each Lozenge) 1 each MUCOUS MEM Q4HR PRN PRN Reason: Sore Throat Last Admin: 11/15/20 16:32 Dose: 1 each Documented by: Benzonatate (Benzonatate 100 Mg Cap) 100 mg PO TID [facility] Last Admin: 11/15/20 16:32 Dose: 100 mg Documented by: Clonazepam (Clonazepam 1 Mg Tab) 1 mg PO Q4H PRN PRN Reason: Anxiety Last Admin: 11/15/20 16:32 Dose: 1 mg Documented by: Enoxaparin Sodium (Enoxaparin 40 Mg/0.4 Ml Syringe) 40 mg SQ DAILY [facility] Last Admin: 11/15/20 07:18 Dose: 40 mg Documented by: Fluconazole (Fluconazole 100 Mg Tab) 100 mg PO DAILY [facility] Insulin Aspart (Insulin Aspart (Novolog) 100 Unit/Ml Vial) 0 unit SQ ACHS [facility]; Protocol Last Admin: 11/15/20 17:29 Dose: Not Given Documented by: Methylprednisolone Sodium Succinate (Methylprednisolone Sod Succi 40 Mg/Ml 1 Ml Vial) 40 mg IV Q8HR [facility] Last Admin: 11/15/20 16:32 Dose: 40 mg Documented by: Miscellaneous Information (Pneumonia Protocol Utilized 1 Each Misc) 1 each PO ONCE PRN PRN Reason: Per Protocol Multivitamins (Multivitamins, Thera 1 Each Tab) 1 each PO DAILY [facility] Last Admin: 11/15/20 07:18 Dose: 1 each Documented by: Oxycodone/Acetaminophen (Oxycodone-Apap 7.5-325mg 1 Each Tab) 1 each PO Q8H PRN PRN Reason: Pain Last Admin: 11/15/20 17:49 Dose: 1 each Documented by: Venlafaxine HCl (Venlafaxine Hcl Er 37.5 Mg Cap) 37.5 mg PO HS [facility] Last Admin: 11/14/20 21:17 Dose: 37.5 mg Documented by: On examination: VITAL SIGNS: 97.9, 72, 16, 123/74, 95% on room air GENERAL APPEARANCE: Sitting up in bed, awake, HEENT: Normal external appearance of nose and ear. Oral cavity: White spots in the pharynx EYES: Pupils equal. Conjunctiva normal. NECK: JVD not raised. Mass not palpable. RESPIRATORY: Respiratory effort increased, decreased breath sounds CARDIOVASCULAR: First and second sounds normal. No edema. ABDOMEN: Soft. Liver and spleen not palpable. No tenderness. No mass palpable. PSYCHIATRY: Alert and oriented x3. Mood and affect normal. INVESTIGATIONS, reviewed in the clinical context: November 15: WBC 20 hemoglobin 13.3 platelets 511 potassium 4.3 creatinine 0.6 Chest x-ray [November 15]: Left lower lobe infiltrate Pro-calcitonin 0.04 Computed tomography scan chest: Filling defect in the left mainstem bronchus. Possible aspiration pneumonia. Left hilar mass cannot be ruled out. No obvious PE Admission chest x-ray: Airspace disease in the left lower lobe. Assessment and plan: -Multifocal pneumonia, suspect gram-negative organism and/or aspiration pneumonia Treated with IV Zosyn and Levaquin. -Acute hypoxic respiratory failure secondary to COPD exacerbation and pneumonia: Improving Initially on Ventimask and 4 L. -Acute transaminitis, possibly from pneumonia sepsis Follow labs. Hold Lipitor -Pharyngeal candidiasis from steroids: Diagnosis Add Diflucan -Sepsis secondary to pneumonia -Possible lung mass with adenopathy For further workup for pulmonary -Acute COPD exacerbation: Improving IV [id number] back, inhaled steroids, DuoNeb 4 times a day -Hyperlipidemia Hold Lipitor -Depression and anxiety Continue with Effexor 37.5 mg daily at bedtime, Klonopin when necessary Add Diflucan. Warm salt water gargle. Cutback Solu-Medrol. Increase activity as tolerated.
[2020-11-15 20:38] LABS: Glucose,Whole Blood 163 mg/dL (75-99)
[2020-11-15] MEDS: VENLAFAXINE HCL ER 37.5 MG CAP PO SCH (21:57)
[2020-11-16 06:53] LABS: Glucose,Whole Blood 103 mg/dL (75-99)
[2020-11-16] MEDS: IPRATROPIUM-ALBUTEROL 3 ML NEB INHALATION SCH ×2 (07:24→11:45)
[2020-11-16] MEDS: INSULIN ASPART (NovoLOG) 100 UNIT/ML VIAL SQ SCH ×2 (07:32→13:56)
[2020-11-16] MEDS: oxyCODONE-APAP 7.5-325MG 1 EACH TAB PO PRN ×2 (07:32→13:55)
[2020-11-16] MEDS: ENOXAPARIN 40 MG/0.4 ML SYRINGE SQ SCH (07:32)
[2020-11-16] MEDS: MULTIVITAMINS, THERA 1 EACH TAB PO SCH (07:32)
[2020-11-16] MEDS: clonazePAM 1 MG TAB PO PRN ×2 (07:33→13:55)
[2020-11-16] MEDS: methylPREDNISolone SOD SUCCI 40 MG/ML 1 ML VIAL IV SCH (07:33)
[2020-11-16 07:39] LABS: ALT 40 U/L (4-34); AST 18 U/L (14-36); African American GFR (CKD) >90 (>60 ml/min/1.73 sqM); Albumin 3.1 g/dL (3.5-5.0); Albumin/Globulin Ratio 1.2; Alkaline Phosphatase 79 U/L (38-126); Anion Gap 3 mmol/L; Blood Urea Nitrogen 20 mg/dL (7-17); Carbon Dioxide 36 mmol/L (22-30); Chloride 98 mmol/L (98-107); Globulin 2.5 g/dL; Glucose 124 mg/dL (74-99); Non-African American GFR(CKD) >90 (>60 ml/min/1.73 sqM); Potassium 5.2 mmol/L (3.5-5.1); Sodium 137 mmol/L (137-145); Total Bilirubin 0.3 mg/dL (0.2-1.3); Total Protein 5.6 g/dL (6.3-8.2)
[2020-11-16] MEDS ORDERED: FLUCONAZOLE 100 MG TAB PO SCH (09:00)
[2020-11-16] MEDS ORDERED: predniSONE 10 MG TAB PO SCH (09:30)
[2020-11-16 11:24] LABS: Glucose,Whole Blood 100 mg/dL (75-99)
--- NOTE | 2020-11-16 11:30 | P.PN ---
Subjective Progress Note Date: 11/16/20 Principal diagnosis: Bilateral pneumonia On 11/15/2020 patient seen in follow-up on medical surgical floor. She is awake and alert, oriented 3, she said not in bed, appears to be in no acute distress, she is currently on 3 L of oxygen with a pulse ox of 97%, breathing comfortably, denies any chest discomfort. Her chest x-ray from this morning showing patchy areas of bilateral infiltrate, stable compared to yesterday's chest x-ray but overall improved over the course of her hospital stay. Patient has 0.9 normal saline infusing at 20 ML per hour, she denies any hemoptysis, denies any chest discomfort. Sounds last bronchospastic and dyspneic on today's exam, she remains on Diflucan. Her blood and sputum cultures have been negative. She has completed 6 days of Zosyn. She has also received several doses Of Levaquin. She remains on nebulized bronchodilators, she is on IV steroids at 40 mg every 8 hours. No new labs today, yesterday's labs have been reviewed. On 11/16/2020 patient seen in follow-up on medical surgical floor. She sits up in bed, room air pulse ox is 91-93%, and patient maintain O2 saturations above 90% with ambulation, she does not qualify for home oxygen, overall she states she is feeling much better, breathing easier, she has completed a course of Levaquin and Zosyn, she is currently just on Diflucan. She continues on nebulized bronchodilators, she is on oral prednisone. Had no fever or chills, today's labs have been reviewed. No acute events overnight, no chest discomfort no hemoptysis, blood and sputum cultures have been negative. Follow-up chest x- ray yesterday showed patchy areas of bilateral infiltrate Objective - Vital Signs Vital signs: Vital Signs Temp 97.6 F 11/16/20 08:09 Pulse 64 11/16/20 08:09 Resp 19 11/16/20 08:09 BP 149/81 11/16/20 08:09 Pulse Ox 95 11/16/20 11:22 Intake & Output 11/15/20 11/16/20 11/16/20 18:59 06:59 18:59 Intake Total 720 Balance 720 Intake: Oral 720 Other: Voiding Method Toilet Toilet # Voids 5 2 - Exam GENERAL EXAM: Alert, 60-year-old white female, on 3 L of oxygen and the pulse ox of 95% comfortable in no apparent distress. HEAD: Normocephalic/atraumatic. EYES: Normal reaction of pupils, equal size. Conjunctiva pink, sclera white. NOSE: Clear with pink turbinates. THROAT: No erythema or exudates. NECK: No masses, no JVD, no thyroid enlargement, no adenopathy. CHEST: No chest wall deformity. Symmetrical expansion. LUNGS: Equal air entry with minimal wheezes, some scattered rhonchi CVS: Regular rate and rhythm, normal S1 and S2, no gallops, no murmurs, no rubs ABDOMEN: Soft, nontender. No hepatosplenomegaly, normal bowel sounds, no guarding or rigidity. EXTREMITIES: No clubbing, no edema, no cyanosis, 2+ pulses and upper and lower extremities. MUSCULOSKELETAL: Muscle strength and tone normal. SPINE: No scoliosis or deformity SKIN: No rashes CENTRAL NERVOUS SYSTEM: Alert and oriented -3. No focal deficits, tone is normal in all 4 extremities. PSYCHIATRIC: Alert and oriented -3. Appropriate affect. Intact judgment and insight. - Labs CBC & Chem 7: 11/14/20 06:05 11/16/20 06:28 Labs: Abnormal Lab Results - Last 24 Hours (Table) 11/15/20 11/15/20 11/16/20 Range/Units 12:11 20:29 06:28 Potassium 5.2 H (3.5-5.1) mmol/L Carbon Dioxide 36 H (22-30) mmol/L BUN 20 H (7-17) mg/dL Creatinine 0.51 L (0.52-1.04) mg/dL Glucose 124 H (74-99) mg/dL POC Glucose (mg/dL) 117 H 163 H (75-99) mg/dL ALT 40 H (4-34) U/L Total Protein 5.6 L (6.3-8.2) g/dL Albumin 3.1 L (3.5-5.0) g/dL 11/16/20 11/16/20 Range/Units 06:51 11:21 Potassium (3.5-5.1) mmol/L Carbon Dioxide (22-30) mmol/L BUN (7-17) mg/dL Creatinine (0.52-1.04) mg/dL Glucose (74-99) mg/dL POC Glucose (mg/dL) 103 H 100 H (75-99) mg/dL ALT (4-34) U/L Total Protein (6.3-8.2) g/dL Albumin (3.5-5.0) g/dL Assessment and Plan Plan: Assessment: #1. Acute bilobar pneumonia, involving the left upper and left lower lobe with significant consolidation of the left upper lobe lingular segment and mediastinal lymphadenopathy which could be reactive versus malignant. Blood and sputum cultures have been negative thus far, patient has been treated with a combination of Levaquin, and Zosyn. She is currently on Diflucan. She has completed her antibiotics, she is clinically improving. #2. Acute exacerbation of COPD #3. Dyspnea related to the above #4. Acute hypoxic respiratory failure, currently down to 3 L of oxygen, improving #5. History of migraines #6. History of hiatal hernia with acid reflux #7. Leukocytosis #8. History of weight loss Plan: Patient continues to improve Vital signs have been stable Increase activity as tolerated Home oxygen assessment has been completed and patient did not qualify for home oxygen For pulmonary prospective she stable for discharge home today She has already completed a course of Levaquin and Zosyn She remains on oral Diflucan No fever or chills Yesterday's follow-up chest x-ray has been reviewed showing improvement in the appearance of bibasilar infiltrates She will need outpatient follow-up with Dr. Aj in 7-10 days I performed a history & physical examination of the patient and discussed their management with my nurse practitioner, Martha Moyer. I reviewed the nurse practitioner's note and agree with the documented findings and plan of care. Lung sounds are positive for mild diffuse wheezes throughout the lung nick. The findings and the impression was discussed with the patient. I attest to the documentation by the nurse practitioner. Time with Patient: Less than 30
[2020-11-16 13:29] VITALS: BP 117/76; PULSE 83; RESP 18; TEMP 98
--- NOTE | 2020-11-16 21:08 | P.DS ---
Providers Date of admission: 11/07/20 14:10 Expected date of discharge: 11/16/20 Attending physician: Sina Souza Consults: 11/07/20 14:07 Consult Physician Routine Consulting Provider: Yanely Awad Consult Reason/Comments: COPD, aspiration pneumonia, hilar adenopathy Do you want consulting provider notified?: Yes Primary care physician: Tr Power [facility] Course: History of presenting complaint 60-year-old female, follows with Dr. Power. history of COPD who states she's had shortness of breath or past 2 weeks is getting worse and refractory to her home medications he also is had nausea vomiting. She's had decreased oral intake she is has some fevers chills sweats also she states. Some chest discomfort due to breathing. No diarrhea. She states she did had the COVID-19 shots with the last one being in the end of July. No other current complaints or modifying factors she is currently somewhat nauseated Workup completed in ED; Sinus tachycardia rate 107. Interval 116 QRS duration 88 QT/QTC 324/432 possible left atrial enlargement evidence a left axis deviation CAT scan of the chest reveals evidence of left upper and lower lobe infiltrate evidence of hilar adenopathy mastectomy ruled out no definitive evidence of PE Laboratory review shows an elevated white blood count of 19.9, hemoglobin of 15.3 and platelet count of 431, sodium 133, potassium 3.7, BUN/creatinine of 8/0.35, AST/ALT elevated at 43/58 Patient is admitted to the hospital for acute exacerbation COPD and aspiration pneumonia with further evaluation of hilar lymphadenopathy November 15: Sitting up in bed. Good oral intake. Dry cough. Breathing better. No bowel movement for 4 days. November 16: Breathing improved. Oral intake better. Discharge discussed. Smoking counseling discussed. Prednisone taper. Patient to follow-up with Dr. Aj from pulmonary Discussion and discharge planning more than 35 minutes Consultation: Dr. Villalba from pulmonary On examination: VITAL SIGNS: 98, 83, 18, 117 x 76, 92% room air GENERAL APPEARANCE: Sitting up in bed, awake, HEENT: Normal external appearance of nose and ear. Oral cavity: White spots in the pharynx EYES: Pupils equal. Conjunctiva normal. NECK: JVD not raised. Mass not palpable. RESPIRATORY: Respiratory effort increased, decreased breath sounds CARDIOVASCULAR: First and second sounds normal. No edema. ABDOMEN: Soft. Liver and spleen not palpable. No tenderness. No mass palpable. PSYCHIATRY: Alert and oriented x3. Mood and affect normal. INVESTIGATIONS, reviewed in the clinical context: November 15: WBC 20 hemoglobin 13.3 platelets 511 potassium 4.3 creatinine 0.6 Chest x-ray [November 15]: Left lower lobe infiltrate Pro-calcitonin 0.04 Computed tomography scan chest: Filling defect in the left mainstem bronchus. Possible aspiration pneumonia. Left hilar mass cannot be ruled out. No obvious PE Admission chest x-ray: Airspace disease in the left lower lobe. Assessment and plan: -Multifocal pneumonia, suspect gram-negative organism and/or aspiration pneumonia: Improved Treated with IV Zosyn and Levaquin. -Acute hypoxic respiratory failure secondary to COPD exacerbation and pneumonia: Improved Initially on Ventimask and 4 L. 92% on room air -Acute transaminitis, possibly from pneumonia sepsis: Improved Lipitor -Pharyngeal candidiasis from steroids: Complete course of Diflucan -Sepsis secondary to pneumonia: Improved -Possible lung mass with adenopathy For further workup for pulmonary -Acute COPD exacerbation: Improving IV Rliu-Laeecn-qry back, inhaled steroids, DuoNeb 4 times a day -Hyperlipidemia Hold Lipitor -Depression and anxiety Continue with Effexor 37.5 mg daily at bedtime, Klonopin when necessary Disposition: Home Follow up with, Dr. Aj from pulmonary Plan - Discharge Summary Discharge Rx Participant: No New Discharge Prescriptions: New predniSONE See Taper PO DAILY #10 tab Fluconazole [Diflucan] 100 mg PO DAILY #7 tab Ipratropium-Albuterol Nebulize [Duoneb 0.5 mg-3 mg/3 ml Soln] 3 ml INHALATION TID #90 ml Budesonide-Formot 160-4.5 Mcg [Symbicort 160-4.5 Mcg Inhaler] 1 puff IN HALATION BID #1 inhaler Continue clonazePAM [KlonoPIN] 1 mg PO TID PRN PRN Reason: Anxiety Venlafaxine HCl ER [Effexor XR] 37.5 mg PO HS Multivitamins, Thera [Multivitamin (formulary)] 1 tab PO DAILY Discontinued Simvastatin [Zocor] 20 mg PO DAILY Discharge Medication List Multivitamins, Thera [Multivitamin (formulary)] 1 tab PO DAILY 11/07/20 [History] Venlafaxine HCl ER [Effexor XR] 37.5 mg PO HS 11/07/20 [History] clonazePAM [KlonoPIN] 1 mg PO TID PRN 11/07/20 [History] Budesonide-Formot 160-4.5 Mcg [Symbicort 160-4.5 Mcg Inhaler] 1 puff INHALATION BID #1 inhaler 11/16/20 [Rx] Fluconazole [Diflucan] 100 mg PO DAILY #7 tab 11/16/20 [Rx] Ipratropium-Albuterol Nebulize [Duoneb 0.5 mg-3 mg/3 ml Soln] 3 ml INHALATION TID #90 ml 11/16/20 [Rx] predniSONE See Taper PO DAILY #10 tab 11/16/20 [Rx] Follow up Appointment(s)/Referral(s): Tr Power MD [Primary Care Provider] - 1-2 days Patient Instructions/Handouts: Pneumonia (DC) Discharge Disposition: HOME SELF-CARE
== END 2020-11-16 14:00 | disposition home or self-care (01) | DRG 871 ==
LOC: EC 10:35 → 4SSUR 14:10
PROVIDERS: ADMIT Hospitalist; ATTEND Hospitalist
DX: A41.9 Sepsis, unspecified organism (principal); J69.0 Pneumonitis due to inhalation of food and vomit; J96.01 Acute respiratory failure with hypoxia; J15.6 Pneumonia due to other Gram-negative bacteria; J44.0 Chronic obstructive pulmonary disease with (acute) lower respiratory infection; J44.1 Chronic obstructive pulmonary disease with (acute) exacerbation; B37.0 Candidal stomatitis; Z20.822 Contact with and (suspected) exposure to COVID-19; F41.9 Anxiety disorder, unspecified; F32.9 Major depressive disorder, single episode, unspecified; E78.5 Hyperlipidemia, unspecified; R59.0 Localized enlarged lymph nodes; K21.9 Gastro-esophageal reflux disease without esophagitis; M19.90 Unspecified osteoarthritis, unspecified site; F17.200 Nicotine dependence, unspecified, uncomplicated; K44.9 Diaphragmatic hernia without obstruction or gangrene; G43.909 Migraine, unspecified, not intractable, without status migrainosus; Z96.641 Presence of right artificial hip joint; T38.0X5A Adverse effect of glucocorticoids and synthetic analogues, initial encounter; Z79.899 Other long term (current) drug therapy; Z98.1 Arthrodesis status; Z90.710 Acquired absence of both cervix and uterus; Z82.49 Family history of ischemic heart disease and other diseases of the circulatory system; Z71.6 Tobacco abuse counseling
CPT/HCPCS: 36415; 71045; 71046; 71275; 80048; 80053; 82550; 83605; 83690; 83735; 83880; 84145; 84484; 85025; 85379; 85610; 85730; 86140; 87040; 87070; 87205; 87449; 87635; 93005; 94640; 94760; 96361; 96365; 96374; 96375; 99291

== ENCOUNTER 2022-09-04 15:04 | Emergency (ER) | payer OTHER ==
[2022-09-04] MEDS ORDERED: MORPHINE SULFATE 4 MG/ML SYRINGE IVP STA ×2 (17:03→19:02)
[2022-09-04] MEDS ORDERED: LIDOCAINE 5% PATCH TOPICAL STA (17:03)
[2022-09-04 17:31] LABS: Basophils % (A) 0 %; Eosinophils # (A) 0.3 k/uL (0-0.7); Eosinophils % (A) 6 %; HCT 47.2 % (34.0-46.0); HGB 15.4 gm/dL (11.4-16.0); Lymphocytes # (A) 1.8 k/uL (1.0-4.8); Lymphocytes % (A) 32 %; MCH 30.2 pg (25.0-35.0); MCHC 32.7 g/dL (31.0-37.0); MCV 92.4 fL (80.0-100.0); Mean Platelet Volume 7.3; Monocytes # (A) 0.2 k/uL (0-1.0); Monocytes % (A) 4 %; Neutrophils # (A) 3.3 k/uL (1.3-7.7); Neutrophils % (A) 58 %; Platelet Count 209 k/uL (150-450); RBC 5.11 m/uL (3.80-5.40); RDW 13.2 % (11.5-15.5); WBC 5.6 k/uL (3.8-10.6)
[2022-09-04 17:40] LABS: Partial Thromboplastin Time 24.8 sec (22.0-30.0); Prothrombin Time 10.5 sec (9.0-12.0)
[2022-09-04 17:53] LABS: ALT 17 U/L (4-34); AST 22 U/L (14-36); African American GFR (CKD) >90 (>60 ml/min/1.73 sqM); Albumin 4.3 g/dL (3.5-5.0); Alkaline Phosphatase 73 U/L (38-126); Anion Gap 9 mmol/L; Blood Urea Nitrogen 12 mg/dL (7-17); Calcium 9.1 mg/dL (8.4-10.2); Carbon Dioxide 29 mmol/L (22-30); Chloride 105 mmol/L (98-107); Glucose 84 mg/dL (74-99); Non-African American GFR(CKD) >90 (>60 ml/min/1.73 sqM); Potassium 3.9 mmol/L (3.5-5.1); Sodium 143 mmol/L (137-145); Total Bilirubin 0.6 mg/dL (0.2-1.3); Total Protein 6.7 g/dL (6.3-8.2)
[2022-09-04 17:54] VITALS: RESP 18
--- NOTE | 2022-09-04 17:55 | XR ---
EXAMINATION TYPE: XR pelvis AP view DATE OF EXAM: 09/04/2022 COMPARISON: AP pelvis HISTORY: Pain TECHNIQUE: Pelvis is examined in frontal projection. FINDINGS: Postsurgical changes or the L5-S1 level. Right hip prosthesis is evident. No acute fracture s are evident within the field of view. Left femoral head articulates with the acetabulum. Normal bow el gas is present. IMPRESSION: 1. No acute osseous abnormality AP pelvis.
--- NOTE | 2022-09-04 17:57 | XR ---
EXAMINATION TYPE: XR Hip Bilateral Complete DATE OF EXAM: 09/04/2022 COMPARISON: None HISTORY: Bilateral hips pain TECHNIQUE: Bilateral hips are examined in 2 projections each. FINDINGS: Right hip: Right hip prosthesis. Acetabular component is evident. No acute fracture or dislocation is evident. Left hip: Femoral head articulates with the acetabulum. Minimal femoral head spurring and acetabular spurring is noted. Joint space appears preserved. No acute fracture or dislocation is evident. IMPRESSION: 1. Right hip prosthesis remains in place. 2. Mild osteoarthritic degenerative changes left hip. 3. No acute osseous abnormality evident
--- NOTE | 2022-09-04 17:58 | XR ---
EXAMINATION TYPE: XR knee complete LT DATE OF EXAM: 09/04/2022 COMPARISON: None HISTORY: Pain TECHNIQUE: 3 view left knee FINDINGS: No joint effusion is evident. There is mild narrowing of the medial and lateral compartment joint spaces. Lateral tibial plateau spurring with medial femoral condylar spurring and tibial plate au is present. No acute fractures are evident. IMPRESSION: 1. Mild osteoarthritic degenerative change.
--- NOTE | 2022-09-04 18:28 | US ---
EXAMINATION TYPE: US venous doppler duplex LE LT DATE OF EXAM: 09/04/2022 4:57 PM COMPARISON: NONE CLINICAL INDICATION: Female, 61 years old with history of pain, swelling; pain and swelling in left l eg. No hx of DVT. Takes baby aspirin daily SIDE PERFORMED: Left TECHNIQUE: The lower extremity deep venous system is examined utilizing real time linear array sonog shahla with graded compression, doppler sonography and color-flow sonography. VESSELS IMAGED: Common Femoral Vein Deep Femoral Vein Greater Saphenous Vein * Femoral Vein Popliteal Vein Small Saphenous Vein * Proximal Calf Veins (* superficial vessels) Left Leg: Negative for DVT. Oropeza's cyst seen measuring 5.9 x 4.2 x 2.9cm IMPRESSION: 1. Left lower extremity ultrasound negative for deep venous thrombosis. 2. Left popliteal cyst
--- NOTE | 2022-09-04 21:20 | CT ---
EXAMINATION TYPE: CT lumbar spine wo con DATE OF EXAM: 09/04/2022 COMPARISON: None HISTORY: pain CT DLP: 1253.5 mGycm CONTRAST: None TECHNIQUE: CT of the lumbar spine is performed on a spiral scan at 3 mm thick sections. Reconstructed images are performed in the coronal and sagittal planes. FINDINGS: T12-L1: No focal disc herniation or significant disc bulge is evident. No spinal canal stenosis or neural foraminal stenosis is present. L1-L2: No focal disc herniation or significant disc bulge is evident. No spinal canal stenosis or n eural foraminal stenosis is present L2-L3: No focal disc herniation or significant disc bulge is evident. No spinal canal stenosis or n eural foraminal stenosis is present L3-L4: Mild disc bulge is present with anterior thecal sac contact. No AP spinal canal stenosis prese nt. Note is made of facet hypertrophy. Neural foramen are patent. L4-L5: No focal disc herniation or significant disc bulge is evident. Facet hypertrophy with ligament um flavum laxity is present with posterior lateral thecal sac compression. Some lateral narrowing is suspected. Beam hardening artifact limits evaluation from posterior pedicle screws. L5-S1: No focal disc herniation or significant disc bulge is evident. No spinal canal stenosis or n eural foraminal stenosis is present. Level is limited due to beam hardening artifact from pedicle scr ews. There is a grade 1 spondylolisthesis of L5 anteriorly on S1. Some S1 to residual disc appears to be p resent. IMPRESSION: 1. Grade 1 spondylolisthesis of L5 intravenous 1. 2. Spondylolysis of L5. 3. Facet hypertrophy likely with some ligamentum flavum laxity has some posterior lateral thecal sac compression causing mild spinal canal narrowing through the L4-5 level.
--- NOTE | 2022-09-04 21:28 | CT ---
EXAMINATION TYPE: CT pelvis wo con DATE OF EXAM: 09/04/2022 COMPARISON: None HISTORY: pain CT DLP: 1253.5 mGycm Automated exposure control for dose reduction was used. Contrast: None Technique: Axial images 3 mm thick sections. Reconstructed images coronal and sagittal planes. FINDINGS: There is a right hip prosthesis with acetabular component. Right hip appears intact within the field- of-view. Left femoral head articulates with the acetabulum. Symphysis pubis is normal. Pubic rami are unremarkable. Initial rami appear normal. Sacrum and coccyx are unremarkable. Sacroiliac joints have degenerative changes. Pedicle screws are present at L5-S1 from prior repair. Multiple diverticuli within the sigmoid colon. Loops of bowel within the pelvis otherwise appear unre markable. The liver appears to be the appendix is unremarkable. Vascular calcifications within the di stal aorta. Inferior vena cava distally appears normal. Urinary bladder is unremarkable IMPRESSION: 1. NO SUSPICIOUS ACUTE CHANGES CT PELVIS
[2022-09-04] MEDS ORDERED: CYCLOBENZAPRINE 10MG STARTER 3 TAB BTL PO STA (22:40)
[2022-09-04] MEDS ORDERED: ACET/COD 300 MG/30 MG STARTER PACK 6 TAB BTL PO STA (22:40)
--- NOTE | 2022-09-04 22:41 | ED ---
General Adult HPI - General Chief complaint: Extremity Injury, Lower Stated complaint: CANT WALK Time Seen by Provider: 09/04/22 15:36 Source: patient, RN notes reviewed Mode of arrival: wheelchair Limitations: no limitations - History of Present Illness Initial comments: 61-year-old female presents to the emergency department chief complaint of right hip pain and left knee pain 2 days. Patient states that she was playing with her grandkids recently and started developing pain following that but has not had any injury. States that the pain starts in her low back/hip and radiates down her right leg. She states that the pain is worse when she walks but states she is able to walk with a walker or assistance. She also reports left leg swelling yesterday. Patient has a history of right hip prosthesis. She states she has pain in her left knee that started around the same time and is worse with walking. She states she has been taking Motrin at home which is helpful. Patient denies fever, chills, numbness and tingling in the groin, loss of bowel or bladder function, urinary retention. - Related Data Home Medications Medication Instructions Recorded Confirmed Albuterol Inhaler [Ventolin Hfa 2 puff INHALATION RT-Q6H PRN 09/04/22 09/04/22 Inhaler] Aspirin EC [Ecotrin Low Dose] 81 mg PO DAILY 09/04/22 09/04/22 Budesonide-Formot 160-4.5 Mcg 2 puff INHALATION RT-BID 09/04/22 09/04/22 [Symbicort 160-4.5 Mcg Inhaler] Cholecalciferol (Vitamin D3) 125 mcg PO DAILY 09/04/22 09/04/22 [Vitamin D3 (125 MCG = 5,000 IU)] Ibuprofen [Motrin] 600 mg PO DAILY PRN 09/04/22 09/04/22 Magnesium Oxide [Mag-Ox] 400 mg PO DAILY 09/04/22 09/04/22 Nicotine 14Mg/24Hr Patch [Habitrol 1 patch TRANSDERM DAILY PRN 09/04/22 09/04/22 14Mg/24Hr Patch] Propranolol [Inderal] 60 mg PO BID 09/04/22 09/04/22 Simvastatin [Zocor] 40 mg PO DAILY 09/04/22 09/04/22 Vilazodone HCl 20 mg PO HS 09/04/22 09/04/22 Allergies Allergy/AdvReac Type Severity Reaction Status Date / Time NSAIDS (Non-Steroidal AdvReac Unknown Verified 09/04/22 18:03 Anti-Inflamma Review of Systems ROS Statement: Those systems with pertinent positive or pertinent negative responses have been documented in the HPI. ROS Other: All systems not noted in ROS Statement are negative. Past Medical History Past Medical History: GERD/Reflux, Osteoarthritis (OA) Additional Past Medical History / Comment(s): hiatal hernia, migraines, ulcers,DJD, PT STATED SHE HAS LOST 35 POUNDS WITHOUT TRYING IN THE PAST 6 MONTHS History of Any Multi-Drug Resistant Organisms: None Reported Past Surgical History: Back Surgery, Section, Hysterectomy, Orthopedic Surgery, Tubal Ligation Additional Past Surgical History / Comment(s): spinal fusion, 07-05-15 TOTAL RT HIP ARTHROPLASTY Past Anesthesia/Blood Transfusion Reactions: Motion Sickness Additional Past Anesthesia/Blood Transfusion Reaction / Comment(s): CLUASTERPHOBIA Past Psychological History: Anxiety Smoking Status: Current every day smoker Past Alcohol Use History: None Reported Past Drug Use History: None Reported - Past Family History Brother(s) Family Medical History: Cancer Mother Family Medical History: CVA/TIA, Deep Vein Thrombosis (DVT), Hypertension, Thyroid Disorder Father Family Medical History: Coronary Artery Disease (CAD), Dementia, Myocardial Infarction (ME) Additional Family Medical History / Comment(s): CARDIAC STENTS General Exam Limitations: no limitations General appearance: alert, in no apparent distress Head exam: Present: atraumatic, normocephalic, normal inspection Eye exam: Present: normal appearance, PERRL, EOMI ENT exam: Present: normal exam, mucous membranes moist Neck exam: Present: normal inspection, full ROM. Absent: tenderness, meningismus, lymphadenopathy Respiratory exam: Present: normal lung sounds bilaterally. Absent: respiratory distress, wheezes, rales, rhonchi, stridor Cardiovascular Exam: Present: regular rate, normal rhythm, normal heart sounds. Absent: systolic murmur, diastolic murmur, rubs, gallop, clicks GI/Abdominal exam: Present: soft, normal bowel sounds. Absent: distended, tenderness, guarding, rebound, rigid Extremities exam: Present: normal inspection, full ROM (full passive ROM at knee and hip ), tenderness (TTP to right hip and thigh), normal capillary refill, other. Absent: joint swelling, calf tenderness Back exam: Present: normal inspection. Absent: tenderness, CVA tenderness (R), CVA tenderness (L), paraspinal tenderness, vertebral tenderness Neurological exam: Present: alert, oriented X3 Psychiatric exam: Present: normal affect, normal mood Skin exam: Present: warm, dry, intact, normal color. Absent: rash Course Vital Signs 09/04/22 09/04/22 09/04/22 15:10 17:52 19:01 Temperature 98 F Pulse Rate 57 L 52 L 60 Respiratory 16 18 18 Rate Blood Pressure 121/76 97/60 136/77 O2 Sat by Pulse 99 97 Oximetry 09/04/22 23:26 Temperature 98.2 F Pulse Rate 54 L Respiratory 18 Rate Blood Pressure 125/83 O2 Sat by Pulse 96 Oximetry Medical Decision Making - Medical Decision Making Was pt. sent in by a medical professional or institution (, PA, LINE UP MACHINE OPERATOR, urgent care, hospital, or longterm...) When possible be specific @ -No Did you speak to anyone other than the patient for history (EMS, parent, family, police, friend...)? What history was obtained from this source @ -No Did you review nursing and triage notes (agree or disagree)? Why? @ -I reviewed and agree with nursing and triage notes Were old charts reviewed (outside hosp., previous admission, EMS record, old EKG, old radiological studies, urgent care reports/EKG's, longterm records)? Report findings @ -No old charts were reviewed Differential Diagnosis (chest pain, altered mental status, abdominal pain women, abdominal pain men, vaginal bleeding, weakness, fever, dyspnea, syncope, headache, dizziness, GI bleed, back pain, seizure, CVA, palpatations, mental health, musculoskeletal)? @ -Differential Musculoskeletal Muscular strain, contusion, ligament sprain, fracture, arthritis, septic arthritis, bursitis, cellulitis, muscle spasm, nerve compression, DVT, arterial occlusion, herpes zoster, electrolyte abnormality, tumor.... This is not meant to be in all inclusive list EKG interpreted by me (3pts min.). @ -None X-rays interpreted by me (1pt min.). @ -X-ray of bilateral hips showed right hip prosthesis in place, mild osteoarthritic degenerative changes of left hip, no acute osseous abnormality, x-ray pelvis showed no acute osseous abnormality, x-ray of the left knee showed mild osteoarthritic changes CT interpreted by me (1pt min.). @ -CT of pelvis showed no acute findings; CT lumbar spine showed grade 1 spondylolisthesis of L5, spondylolysis of L5, facet hypertrophy likely with some ligamentum flavum laxity has some posterior lateral thecal sac compression causing mild spinal canal narrowing through L4-5 U/S interpreted by me (1pt. min.). @ - ultrasound of the left lower extremity showed negative for DVT, Oropeza's cyst What testing was considered but not performed or refused? (CT, X-rays, U/S, labs)? Why? @ -None What meds were considered but not given or refused? Why? @ -None Did you discuss the management of the patient with other professionals (professionals i.e. , PA, LINE UP MACHINE OPERATOR, lab, RT, psych nurse, social science instructor, custom feed corn operator, teacher, first aid officer, bottle caser)? Give summary @ -No Was smoking cessation discussed for >3mins.? @ -No Was critical care preformed (if so, how long)? @ -No Were there social determinants of health that impacted care today? How? (Homelessness, low income, unemployed, alcoholism, drug addiction, transportation, low edu. Level, literacy, decrease access to med. care, residential, rehab)? @ -No Was there de-escalation of care discussed even if they declined (Discuss DNR or withdrawal of care, Hospice)? DNR status @ -No What co-morbidities impacted this encounter? (DM, HTN, Smoking, COPD, CAD, Cancer, CVA, ARF, Chemo, Hep., AIDS, mental health diagnosis, sleep apnea, morbid obesity)? @ -None Was patient admitted / discharged? Hospital course, mention meds given and route, prescriptions, significant lab abnormalities, going to OR and other pertinent info. @ -Discharged. Patient presented to emergency department chief complaint of right hip and left knee pain 2-3 days worse with walking. Patient is able to get around with a walker or with assistance. Patient was given a lidocaine patch and IV morphine and she had improvement in pain with rest. X-ray of bilateral hips and pelvis showed osteoarthritis changes, right hip prosthesis in place. Ultrasound of left lower extremity which was negative for DVT. CT of the lumbar spine showed grade 1 spondylolisthesis of L5, spondylolysis of L5, facet hypertrophy likely with some ligamentum flavum laxity. This may be a source of the patient's symptoms. Patient was given the option for inpatient admission but Patient is adamant about going home and believes that she will be able to safely get around at home. I believe this is reasonable as patient is not having any red flag symptoms at this time. Patient was advised of right flag symptoms and return precautions were discussed extensively. Patient is going to follow-up with her primary care provider in the next 1-2 days. Patient given starter pack for Flexeril and tylenol #3. Patient discharged in stable condition. Case discussed my attending, Dr. Cedillo who also evaluated the patient. Undiagnosed new problem with uncertain prognosis? @ -No Drug Therapy requiring intensive monitoring for toxicity (Heparin, Nitro, Insulin, Cardizem)? @ -No Were any procedures done? @ -No Diagnosis/symptom? @ -right hip pain Acute, or Chronic, or Acute on Chronic? @ -acute Uncomplicated (without systemic symptoms) or Complicated (systemic symptoms)? @ -uncomplicated Side effects of treatment? @ -No Exacerbation, Progression, or Severe Exacerbation? @ -No Poses a threat to life or bodily function? How? (Chest pain, USA, ME, pneumonia, PE, COPD, DKA, ARF, appy, cholecystitis, CVA, Diverticulitis, Homicidal, Suicidal, threat to staff... and all critical care pts) @ -No - Lab Data Result diagrams: 09/04/22 17:12 09/04/22 17:12 Lab Results 09/04/22 09/04/22 09/04/22 Range/Units 17:12 17:12 17:12 WBC 5.6 (3.8-10.6) k/uL RBC 5.11 (3.80-5.40) m/uL Hgb 15.4 (11.4-16.0) gm/dL Hct 47.2 H (34.0-46.0) % MCV 92.4 (80.0-100.0) fL MCH 30.2 (25.0-35.0) pg MCHC 32.7 (31.0-37.0) g/dL RDW 13.2 (11.5-15.5) % Plt Count 209 (150-450) k/uL MPV 7.3 Neutrophils % 58 % Lymphocytes % 32 % Monocytes % 4 % Eosinophils % 6 % Basophils % 0 % Neutrophils # 3.3 (1.3-7.7) k/uL Lymphocytes # 1.8 (1.0-4.8) k/uL Monocytes # 0.2 (0-1.0) k/uL Eosinophils # 0.3 (0-0.7) k/uL Basophils # 0.0 (0-0.2) k/uL PT 10.5 (9.0-12.0) sec INR 1.0 (<1.2) APTT 24.8 (22.0-30.0) sec Sodium 143 (137-145) mmol/L Potassium 3.9 (3.5-5.1) mmol/L Chloride 105 (98-107) mmol/L Carbon Dioxide 29 (22-30) mmol/L Anion Gap 9 mmol/L BUN 12 (7-17) mg/dL Creatinine 0.60 (0.52-1.04) mg/dL Est GFR (CKD-EPI)AfAm >90 (>60 ml/min/1.73 sqM) Est GFR (CKD-EPI)NonAf >90 (>60 ml/min/1.73 sqM) Glucose 84 (74-99) mg/dL Calcium 9.1 (8.4-10.2) mg/dL Total Bilirubin 0.6 (0.2-1.3) mg/dL AST 22 (14-36) U/L ALT 17 (4-34) U/L Alkaline Phosphatase 73 (38-126) U/L Total Protein 6.7 (6.3-8.2) g/dL Albumin 4.3 (3.5-5.0) g/dL Disposition Clinical Impression: Right hip pain Disposition: HOME SELF-CARE Condition: Stable Instructions (If sedation given, give patient instructions): Osteoarthritis (ED) Additional Instructions: Please return to the emergency department if he develops any new or worsening symptoms. Follow-up with her primary care physician in the next 1-2 days. Is patient prescribed a controlled substance at d/c from ED?: No Referrals: Efren Bernal MD [Primary Care Provider] - 1-2 days Time of Disposition: 22:41
[2022-09-04 23:28] VITALS: BP 125/83; PULSE 54; TEMP 98.2
== END 2022-09-04 23:28 | disposition home or self-care (01) ==
LOC: EC 15:04
DX: M25.551 Pain in right hip (principal); K21.9 Gastro-esophageal reflux disease without esophagitis; M19.90 Unspecified osteoarthritis, unspecified site; F41.9 Anxiety disorder, unspecified; F17.200 Nicotine dependence, unspecified, uncomplicated; Z79.51 Long term (current) use of inhaled steroids; Z79.82 Long term (current) use of aspirin; Z79.899 Other long term (current) drug therapy; Z88.6 Allergy status to analgesic agent
CPT/HCPCS: 36415; 80053; 85025; 85610; 85730; 72170; 73521; 73562; 93971; 72192; 72131; 99284; 96374; J2270

== ENCOUNTER 2022-11-02 07:36 | Day surgery (SDC) | payer OTHER ==
[2022-11-01 09:50] VITALS: BMI 21.1
[~2022-11-02 07:36] MED LIST: LACTATED RINGERS 1,000 ML IV SCH
[2022-11-02 07:56] VITALS: TEMP 97.8
--- NOTE | 2022-11-02 08:14 | P.GSHP ---
History of Present Illness H&P Date: 11/02/22 CHIEF COMPLAINT: GERD and colon screen HISTORY OF PRESENT ILLNESS: The patient is a 62-year-old female who presents with gastroesophageal reflux disease and need for colon screen. Upper and lower endoscopy were offered for further evaluation and management. PAST MEDICAL HISTORY: Please see list. PAST SURGICAL HISTORY: Please see list. MEDICATIONS: Please see list. ALLERGIES: Please see list. SOCIAL HISTORY: No illicit drug use FAMILY HISTORY: No reports of Crohn disease or ulcerative colitis. REVIEW OF ORGAN SYSTEMS: CONSTITUTIONAL: No reports of fevers or chills. GI: Denies any blood in stools or constipation. PHYSICAL EXAM: VITAL SIGNS: Stable GENERAL: Well-developed pleasant in no acute distress. HEENT: No scleral icterus. Extraocular movements grossly intact. Moist buccal mucosa. NECK: Supple without lymphadenopathy. CHEST: Unlabored respirations. Equal bilateral excursions. CARDIOVASCULAR: Regular rate and rhythm. Distal 2+ pulses. ABDOMEN: Soft, nondistended. MUSCULOSKELETAL: No clubbing, cyanosis, or edema. ASSESSMENT: 1. Gastroesophageal reflux disease 2. Colon screen. PLAN: 1. Recommend proceeding with an upper and lower endoscopy Past Medical History Past Medical History: COPD, GERD/Reflux, Osteoarthritis (OA) Additional Past Medical History / Comment(s): states "having a lot of pressure around rectum, hiatal hernia, migraines, stomach ulcers,DJD,covid infection 2 022,uses O2 2L nc @hs if needed. History of Any Multi-Drug Resistant Organisms: None Reported Past Surgical History: Back Surgery, Section, Hysterectomy, Orthopedic Surgery, Tubal Ligation Additional Past Surgical History / Comment(s): spinal fusion, 07-05-15 TOTAL RT HIP ARTHROPLASTY Past Anesthesia/Blood Transfusion Reactions: Motion Sickness Additional Past Anesthesia/Blood Transfusion Reaction / Comment(s): claustrophobic. no hx blood transfusion Smoking Status: Current every day smoker - Past Family History Brother(s) Family Medical History: Cancer Additional Family Medical History / Comment(s): thyroid CA Mother Family Medical History: CVA/TIA, Deep Vein Thrombosis (DVT), Hypertension, Thyroid Disorder Father Family Medical History: Coronary Artery Disease (CAD), Dementia, Myocardial Infarction ([place]) Additional Family Medical History / Comment(s): CARDIAC STENTS Medications and Allergies Home Medications Medication Instructions Recorded Confirmed Type Albuterol Inhaler [Ventolin Hfa 2 puff INHALATION RT-Q6H PRN 09/04/22 11/01/22 History Inhaler] Aspirin EC [Ecotrin Low Dose] 81 mg PO DAILY 09/04/22 11/01/22 History Cholecalciferol (Vitamin D3) 125 mcg PO DAILY 09/04/22 11/01/22 History [Vitamin D3 (125 MCG = 5,000 IU)] Ibuprofen [Motrin] 600 mg PO DAILY PRN 09/04/22 11/01/22 History Magnesium Oxide [Mag-Ox] 400 mg PO HS 09/04/22 11/01/22 History Propranolol [Inderal] 60 mg PO BID 09/04/22 11/01/22 History Simvastatin [Zocor] 20 mg PO DAILY 09/04/22 11/01/22 History Vilazodone HCl 20 mg PO HS 09/04/22 11/01/22 History ALPRAZolam [Xanax XR] 0.5 mg PO TID 11/01/22 11/01/22 History Nicotine 7Mg/24Hr Patch [Habitrol] 1 patch TRANSDERM DAILY PRN 11/01/22 11/01/22 History Allergies Allergy/AdvReac Type Severity Reaction Status Date / Time NSAIDS (Non-Steroidal AdvReac can't take Verified 11/02/22 07:51 Anti-Inflamma due to stomach ulcer Surgical - Exam Vital Signs Temp Pulse Resp BP Pulse Ox 97.8 F 64 16 129/79 98 11/02/22 07:54 11/02/22 07:54 11/02/22 07:54 11/02/22 07:54 11/02/22 07:54
[2022-11-02] MEDS ORDERED: PROPOFOL 10 MG/ML 20 ML VIAL IV ONE (08:36)
[2022-11-02 09:26] VITALS: BP 120/75; PULSE 56; RESP 16
--- NOTE | 2022-11-02 09:53 | P.PCN ---
Date of Procedure: 11/02/22 Description of Procedure: PREOPERATIVE DIAGNOSIS: Personal history of colon polyps Colonoscopy screening POSTOPERATIVE DIAGNOSIS: Sigmoid stricture Tubular adenoma rectum colon Diverticulosis OPERATION: Colonoscopy to the sigmoid colon Colonoscopy with cold forceps biopsy SURGEON: Kathrine Patel MD. ANESTHESIA: MAC. INDICATIONS: The patient is an 62-year-old male who presents personal history of colon polyps. Last colonoscopy 5 years. Benefits and risks were described and informed consent was obtained. DESCRIPTION OF PROCEDURE: The patient had undergone Sutab prep. The patient had been brought into the operating room and laid in the left lateral decubitus position. After adequate intravenous sedation, the rectum was examined with 2% lidocaine jelly. External hemorrhoids were encountered. The rectal tone was within normal limits. No lesions were palpated in the rectal vault. An pediatric Olympus colonoscope was advanced after being exchanged due to sigmoid stricture. Rectal polyp was resected using cold forceps. An adenoma proximal to the stricture was identified however unable to reach due to tight stricture of the sigmoid colon. The prep was fair. Sigmoid diverticulosis was encountered. Colonic polyps were found and removed. No evidence of focal colitis was found. Retroflexion of the scope demonstrated grade 2 internal hemorrhoids without active bleeding or inflammation. The colon was desufflated. The patient had tolerated the procedure well. Withdrawal time was over 6 minutes. FINDINGS: Aronchick preparation quality scale 3 (1-5) Internal hemorrhoids, grade 2 External hemorrhoids, grade 2. No arteriovenous malformations. Sigmoid diverticulosis Unretrievable adenoma ascending colon due to sigmoid stricture Removal of 1 polyps: - Cold forceps biopsy at rectum, 4 mm adenoma No focal colitis. RECOMMENDATIONS: Recommend partial colectomy due to sigmoid diverticulitis, symptomatic which stricture Plan - Discharge Summary Discharge Rx Participant: No New Discharge Prescriptions: Continue Propranolol [Inderal] 60 mg PO BID Vilazodone HCl 20 mg PO HS Simvastatin [Zocor] 20 mg PO DAILY Magnesium Oxide [Mag-Ox] 400 mg PO HS Ibuprofen [Motrin] 600 mg PO DAILY PRN PRN Reason: Pain Cholecalciferol (Vitamin D3) [Vitamin D3 (125 MCG = 5,000 IU)] 125 mcg PO DAILY Aspirin EC [Ecotrin Low Dose] 81 mg PO DAILY Albuterol Inhaler [Ventolin Hfa Inhaler] 2 puff INHALATION RT-Q6H PRN PRN Reason: Shortness Of Breath Nicotine 7Mg/24Hr Patch [Habitrol] 1 patch TRANSDERM DAILY PRN PRN Reason: Nicotine Cravings ALPRAZolam [Xanax XR] 0.5 mg PO TID Discharge Medication List Albuterol Inhaler [Ventolin Hfa Inhaler] 2 puff INHALATION RT-Q6H PRN 09/04/22 [History] Aspirin EC [Ecotrin Low Dose] 81 mg PO DAILY 09/04/22 [History] Cholecalciferol (Vitamin D3) [Vitamin D3 (125 MCG = 5,000 IU)] 125 mcg PO DAILY 09/04/22 [History] Ibuprofen [Motrin] 600 mg PO DAILY PRN 09/04/22 [History] Magnesium Oxide [Mag-Ox] 400 mg PO HS 09/04/22 [History] Propranolol [Inderal] 60 mg PO BID 09/04/22 [History] Simvastatin [Zocor] 20 mg PO DAILY 09/04/22 [History] Vilazodone HCl 20 mg PO HS 09/04/22 [History] ALPRAZolam [Xanax XR] 0.5 mg PO TID 11/01/22 [History] Nicotine 7Mg/24Hr Patch [Habitrol] 1 patch TRANSDERM DAILY PRN 11/01/22 [History] Follow up Appointment(s)/Referral(s): Kathrine Patel MD [STAFF PHYSICIAN] - 11/28/22 11:00 am Patient Instructions/Handouts: Diverticulitis (DC), Colorectal Polyps (GEN) Activity/Diet/Wound Care/Special Instructions: Follow-up in the office for incomplete colonoscopy Discharge Disposition: HOME SELF-CARE
== END 2022-11-02 10:42 | disposition home or self-care (01) ==
LOC: ORWHC2ENDO 07:36
PROVIDERS: ATTEND Surgery Plastic and Reconstructive Surgery
DX: Z12.11 Encounter for screening for malignant neoplasm of colon (principal); D12.8 Benign neoplasm of rectum; K56.699 Other intestinal obstruction unspecified as to partial versus complete obstruction; K64.1 Second degree hemorrhoids; K57.30 Diverticulosis of large intestine without perforation or abscess without bleeding; F17.200 Nicotine dependence, unspecified, uncomplicated; K21.9 Gastro-esophageal reflux disease without esophagitis; Z86.010 Personal history of colon polyps; Z79.82 Long term (current) use of aspirin; Z82.49 Family history of ischemic heart disease and other diseases of the circulatory system; Z79.899 Other long term (current) drug therapy
CPT/HCPCS: 45330; 88305; J2704; 45380

== ENCOUNTER → 2023-04-05 | Outpatient (CLI) | payer OTHER ==
[~2023-04-05] MED LIST changes: +DOBUTamine DRIP for NUC MED 500 MG in DEXTROSE/WATER 1 250ML.BAG IV PRN; +DOBUTamine DRIP for NUC MED 500 MG/250 ML BAG IV ONE; -LACTATED RINGERS 1,000 ML IV SCH
--- NOTE | 2023-04-05 12:48 | CA ---
Dobutamine Stress Echocardiogram Report Janette Fajardo Age: 62 Gender: F : 1960 Exam Date: 04/05/2023 09:26 Exam Location: [facility] Ordering Physician: Sam Monique MD ([id number]) Referring Physician: Sam Monique MD ([id number]) Sales Secretary: ROMAN,, Technologist: Ht (in): 66 Wt (lb): 138 Procedure CPT: Indication: Z01.810 PREPROCEDURAL CARDIOVASCULAR EXAMINATION ICD-9 Codes: Rhythm: Patient History: Abnormal EKG pre surgery Cardiac Medications: Medications in past 24 hours: Contrast: Total Dose (mL): Stress Results Protocol: Dobutamine Peak Dose (???g/kg/min): 40 Duration (min:sec): Atropine:(mg) Target HR: 134 Double Product: [id number] Resting HR: 64 Resting BP: 101 / 72 Peak HR: 140 Peak BP: 155 / 62 Max Predicted HR: 158 89 % Max Predicted HR Stress Summary: BP Response: Normal Reason for Termination: Heart rate acheived Cardiac Symptoms: No cardiac symptoms ECG Analysis Resting EKG: Normal sinus rhythm, normal ECG Stress EKG: Borderline ST depression - inferio-lateral leads Arrhythmia: Occasional PVCs Echo Analysis Base Echo Analysis: Normal resting echocardiogram. Low Echo Anaylsis: Normal wall thickening and motion Peak Echo Analysis: Normal wall augmentation with no hypokinesis or dyskinesis Recovery Echo: Normal wall motion MEASUREMENTS (Male/Female) Normal Values CONCLUSIONS 1. Borderline left electrocardiographic response to dobutamine infusion with occasional PVCs 2. Normal stress echocardiogram with no evidence of stress induced ischemia Dr. Jamey Ratliff MD (Electronically Signed) Final Date: 05 April 2023 12:47
== END | disposition home or self-care (01) ==
LOC: RADNMMAIN 03-13 08:50
PROVIDERS: ATTEND Internal Medicine Cardiovascular Disease
DX: Z01.810 Encounter for preprocedural cardiovascular examination (principal); I49.3 Ventricular premature depolarization; R94.31 Abnormal electrocardiogram [ECG] [EKG]
CPT/HCPCS: 93351